=== PATIENT | female | born 1945 | race Caucasian/White ===

== ENCOUNTER 2018-11-19 12:13 | Inpatient (IN) | payer OTHER ==
[~2018-11-19] VITALS: Ht 177.8 cm; Wt 59.9 kg
--- NOTE | 2018-11-19 10:40 | NUR ---
HANGED IVF AND ABX, INFUSING WELL. PT FALL ASLEEP AT THIS MOMENT BUT AROUSABLE. PT'S FRIEND CALLED IN FROM [place], PT STATED SHE DOES NOT WANT TO ANSWER PHONE CALL, EXPLAINED TO PT'S FRIEND TO CALL BACK AROUND 2029, PT'S FRIEND VERBALIZED UNDERSTANDING. Addendum: 11/19/18 at 1857 by Maida Hough RN WRONG TIME, PLEASE IGNORE.
--- NOTE | 2018-11-19 12:13 | NUR ---
Patient BIBA ACLS accompanied by Thompson MAY, transferred to bed 10. Dr. Rojas and RN evaluating patient at bedside.
[2018-11-19] MEDS ORDERED: NACL 0.9% 1,000 ML IV ONE ×2 (12:25→19:15)
[2018-11-19] MEDS ORDERED: HALOPERIDOL IM 5 MG/ML VIAL IM ONE (12:25)
--- NOTE | 2018-11-19 12:30 | NUR ---
Physician order given to place 4 POINT HARD RESTRAINTS TO PREVENT PT OR STAFF INJURY AND TO PROVIDE MEDICALLY NECESSISARY TREATMENT. Resraints placed with quick-release ties to bed frame. Pt under observation.
--- NOTE | 2018-11-19 12:30 | NUR ---
BUD AFTER BEING FOUND ATTEMPTING TO CLIMB OUT OF BATHROOM WINDOW PER EMS. PER EMS, PT HAS A HX OF SCHIZOPHRENIA AND LIVES IN A [facility]. PT IS AGGITATED AND THRASHING AROUND IN [facility], PT ARRIVED IN 4 POINT RESTRAINTS BY EMS. PT IS NON VERBAL AT THIS TIME AND IS NOT FOLLOWING COMMANDS OR COOPERATING. TACHYCARDIC IN 130s, DR. BURCH AWARE. PT REMAINS IN 4 PT RESTRAINTS FOR PT AND STAFF SAFETY AT THIS TIME.
[2018-11-19] MEDS ORDERED: LORazepam 2 MG/ML VIAL IVP ONE (13:00)
--- NOTE | 2018-11-19 13:00 | NUR ---
14FR STRAIGHT CATH INSERTED, PT TOLERATED PROCEDURE WELL, URINE SAMPLE COLLECTED AND SENT TO LAB. URINE NOTED TO BE YELLOW AND CLEAR.
--- NOTE | 2018-11-19 13:10 | NUR ---
ALL RESTRAINTS REMOVED, PT IS CALM AND RESTING IN BED AT THIS TIME. CIRCULATION IS INTACT, PT NEEDS ARE ALL MET AT THIS TIME
--- NOTE | 2018-11-19 13:26 | NUR ---
CALLED LAB AND XRAY TO LET THEM KNOW PT IS READY
--- NOTE | 2018-11-19 13:38 | NUR ---
XRAY AT BEDSIDE.
--- NOTE | 2018-11-19 13:45 | NUR ---
PT RESTING IN BED, CALM, ALERT TO VERBAL STIMULI.
[2018-11-19 13:54] LABS: BASOPHILS % (AUTO) 0.2 % (0.0-2.0); HEMATOCRIT 38.6 % (36-48); HEMOGLOBIN 12.7 g/dL (12.0-16.0); LYMPHOCYTES # (AUTO) 0.4 K/uL (2.5-16.5); MEAN CORPUSCULAR HEMOGLOBIN 28 pg (27-31); MEAN CORPUSCULAR HGB CONC 33 g/dL (33-37); MEAN CORPUSCULAR VOLUME 84.6 fL (80-94); MONOCYTES % (AUTO) 5.8 % (1.7-9.3); NEUTROPHILS # (AUTO) 16.3 K/uL (1.8-7.7); PLATELET COUNT (AUTO) 342 K/uL (140-450); RED BLOOD CELL COUNT(AUTO) 4.57 MIL/uL (4.20-5.40); RED CELL DISTRIBUTION WIDTH 14.8 % (11.6-13.7)
[2018-11-19 14:12] LABS: BARBITURATE, URINE NEG. ng/ml (NEG <=200); BENZODIAZEPINE, URINE NEG. ng/mL (NEG <=200); CANNABINOID, URINE NEG. ng/mL (NEG <=50); COCAINE, URINE NEG. ng/mL (NEG <=300); OPIATE, URINE NEG. ng/mL (NEG <=2000); PHENCYCLIDINE SCREEN,URINE NEG. ng/mL (NEG <=25)
[2018-11-19 14:13] LABS: APPEARANCE,URINE CLEAR (CLEAR); BILIRUBIN,URINE NEGATIVE (NEGATIVE); BLOOD, URINE 2+ (NEGATIVE); COLOR,URINE AMBER (YELLOW); LEUKOCYTE ESTERASE ,URINE NEGATIVE (NEGATIVE); NITRITE, URINE NEGATIVE (NEGATIVE); PH,URINE 5.5 (5.0-9.0); UGLUCOSE NEGATIVE (NEGATIVE)
[2018-11-19 14:15] LABS: ANION GAP 20.8 (8-16); CARBON DIOXIDE 19.6 mmol/L (21-32); CHLORIDE 111 mmol/L (98-107); CREATININE 1.5 mg/dL (0.6-1.3); GLUCOSE 115 mg/dL (74-106); POTASSIUM 3.4 mmol/L (3.5-5.1); SODIUM SERUM 148 mmol/L (136-145); UREA NITROGEN, BLOOD 28 mg/dL (7-18); WHITE BLOOD COUNT (AUTO) 17.7 K/uL (4.8-10.8)
[2018-11-19 14:19] LABS: PROTHROMBIN TIME 11.4 secs (10.8-13.4)
[2018-11-19 14:20] LABS: ALBUMIN 3.1 g/dL (3.4-5.0); ASPARTATE AMINOTRANSFERASE 73 U/L (15-37); SALICYLATE < 2.8 mg/dL (2.8-20.0); TOTAL BILIRUBIN 1.2 mg/dL (0.0-1.0)
[2018-11-19 14:32] LABS: RBC,URINE 0-5 /HPF (0-5); WBC,URINE 0-5 /HPF (0-5)
[2018-11-19 15:26] LABS: ACETAMINOPHEN < 0.5 ug/ml (10-30)
--- NOTE | 2018-11-19 15:30 | NUR ---
PROVIDED PT WITH BEDPAN, PT URINATED APPROX. 100ML CLOUDY, YELLOW URINE
--- NOTE | 2018-11-19 15:45 | NUR ---
GAVE PT A BEDBATH.
--- NOTE | 2018-11-19 16:10 | NUR ---
SPOKE WITH PT SISTER DANA MITCHELL. SHE WAS THE PERSON WHO CALLED 911. SHE STATES THIS BEVAVIOR IS NOT NORMAL FOR HER SISTER. SHE IS UNAWARE OF THE PTS MEDICAL HISTORY OTHER THAN SCHIZOPHRENIA AND SHE DOES NOT KNOW IF SHE HAS BEEN COMPLIANT WITH HER MEDICATION OR PSYCHIATRIST. SHE CAN BE REACHED AT [phone].
--- NOTE | 2018-11-19 16:25 | NUR ---
PT LEFT TO CT VIA [facility]
[2018-11-19] MEDS ORDERED: ONDANSETRON 4 MG/2 ML VIAL IM/IVP PRN (17:20)
[2018-11-19] MEDS ORDERED: LORazepam 2 MG/ML VIAL IM/IVP PRN (17:20)
[2018-11-19] MEDS ORDERED: ACETAMINOPHEN 325 MG TAB PO PRN (17:20)
[2018-11-19] MEDS ORDERED: DOCUSATE SODIUM 100 MG GELCAP PO PRN (17:20)
--- NOTE | 2018-11-19 18:05 | NUR ---
Patient will be admitted to care of DR. PAGE. Admited to TELEMETRY. Will go to room 124A. Belongings list completed. Report to RAJAT PATEL.
--- NOTE | 2018-11-19 18:10 | NUR ---
admitted pt from ER BY ROMULO, PT AWAKE, ALERT. ABLE TO FOLLOW COMMANDS AT THIS TIME. PT ON RA, NO S/S OF RESPIRATORY DISTRESS NOTED. PT T: 98.4 F, BP 150/79, HR 99. O2 SATS 98%. PT HAS IV TO RIGHT HAND # 20. INTACT AND PATENT. PT SKIN NON INTACT . PER PM NURSE, PT AMBULATE AT HOME BUT PT SKIN NON-INTACT, CALL LIGHT IN REACH, INTRODUCED MYSELF. WILL CONTINUE TO MONITOR PT.
[2018-11-19] MEDS: NACL 0.9% 1,000 ML IV SCH ×2 (18:38→23:11)
--- NOTE | 2018-11-19 18:40 | NUR ---
HANGED IVF AND ABX, INFUSING WELL. PT FALL ASLEEP AT THIS MOMENT BUT AROUSABLE. PT'S FRIEND CALLED IN FROM [place], PT STATED SHE DOES NOT WANT TO ANSWER PHONE CALL, EXPLAINED TO PT'S FRIEND TO CALL BACK AROUND 2029, PT'S FRIEND VERBALIZED UNDERSTANDING.
--- NOTE | 2018-11-19 18:44 | NUR ---
patient refused ekg. patient feels she does not need that test
[2018-11-19 19:04] LABS: MAGNESIUM 2.5 mg/dL (1.8-2.4)
[2018-11-19 19:05] LABS: PHOSPHORUS 2.5 mg/dL (2.5-4.9); THYROID STIMULATING HORMONE 2.72 uIU/mL (0.34-3.74)
[2018-11-19] MEDS ORDERED: HEPARIN PER PHARMACY MC PRN (19:10)
[2018-11-19] MEDS ORDERED: hePARIN / DEXT 5% PREMIX 250 ML IV SCH (19:10)
--- NOTE | 2018-11-19 19:30 | NUR ---
ADMITTED 72 YEARS FEMALE FROM ER VIA [facility] ARRIVED IN UNIT AT 1810 PER AM NURSE. VITAL SIGNS STABLE. DR. EDMONDSON AT BEDSIDE TO SEE PATIENT. CARE BOARD UPDATED. PLAN OF CARE DISCUSSED WITH PATIENT, CALL LIGHT WITHIN REACH.
[2018-11-19 20:00] VITALS: BP 145/80
--- NOTE | 2018-11-19 20:30 | NUR ---
MOVE TO ROOM [facility]B [facility]IA [facility].
[2018-11-19] MEDS ORDERED: HAL5 PO (20:37)
[2018-11-19] MEDS: hePARIN / DEXT 5% PREMIX 250 ML IV SCH (20:45)
[2018-11-19] MEDS ORDERED: MELATONIN 3 MG TAB PO PRN (20:50)
[2018-11-19] MEDS ORDERED: MEDICATION REC. PHARMACY CONS. 1 EA MISC MC PRN (20:50)
[2018-11-19] MEDS ORDERED: QUEtiapine FUMARATE 25 MG TAB PO SCH (21:00)
--- NOTE | 2018-11-19 21:00 | NUR ---
DUE MEDS GIVEN. NO COMPLAINS. CALL LIGHT WITHIN REACH.
[2018-11-19] MEDS: OLANZapine 5 MG TAB PO SCH (21:41)
[2018-11-19] MEDS ORDERED: FOAM DRESSING TP PRN (22:30)
[2018-11-19] MEDS ORDERED: SKINTEGRITY HYDROGEL TP PRN (22:30)
[2018-11-19] MEDS ORDERED: NACL 0.9% IRR 250 ML BOTTLE IR PRN (22:30)
--- NOTE | 2018-11-20 | NUR ---
ASLEEP EASILY AROUSABLE. NO COMPLAINS. CALL LIGHT WITHIN REACH. VITAL SIGNS STABLE.
[2018-11-20 00:22] VITALS: BP 110/50
[2018-11-20] MEDS: Z-GUARD PASTE TP SCH ×2 (00:58→12:19)
--- NOTE | 2018-11-20 03:28 | NUR ---
PTT-139.5, HEPARIN GTT PER PROTOCOL ORDERED, HOLD HEPARIN GTT FOR 1HOUR THEN FOLLOW ORDERED.
[2018-11-20 04:23] VITALS: BP 102/40
--- NOTE | 2018-11-20 04:25 | NUR ---
SLEEPING WELL, EASILY AROUSABLE. NO COMPLAINS. VITAL SIGNS STABLE. CALL LIGHT WITHIN REACH.
[2018-11-20] MEDS: hePARIN / DEXT 5% PREMIX 250 ML IV SCH (04:44)
--- NOTE | 2018-11-20 04:45 | NUR ---
RESTARTED HEPARIN GTT AT 1160 UNITS/HR. PTT ORDERED AT 1045. RATE CHANGE VERIFY WITH SCALP TREATMENT OPERATOR-LINDA.
[2018-11-20 06:54] LABS: CHOL/HDL RATIO 2.6 (1-4.5); MAGNESIUM 2.1 mg/dL (1.8-2.4); PHOSPHORUS 3.4 mg/dL (2.5-4.9)
[2018-11-20 06:56] LABS: BASOPHILS % (AUTO) 0.4 % (0.0-2.0); EOSINOPHILS % (AUTO) 0.5 % (0.0-4.0); HEMATOCRIT 33.2 % (36-48); HEMOGLOBIN 11.2 g/dL (12.0-16.0); LYMPHOCYTES # (AUTO) 1.4 K/uL (2.5-16.5); LYMPHOCYTES % (AUTO) 14.3 % (20.5-51.1); MEAN CORPUSCULAR HEMOGLOBIN 29 pg (27-31); MEAN CORPUSCULAR HGB CONC 34 g/dL (33-37); MEAN CORPUSCULAR VOLUME 84.8 fL (80-94); MONOCYTES # (AUTO) 0.7 K/uL (0.8-1.0); NEUTROPHILS # (AUTO) 7.6 K/uL (1.8-7.7); NEUTROPHILS % (AUTO) 77.8 % (42.2-75.2); PLATELET COUNT (AUTO) 288 K/uL (140-450); RED BLOOD CELL COUNT(AUTO) 3.92 MIL/uL (4.20-5.40); RED CELL DISTRIBUTION WIDTH 14.8 % (11.6-13.7); SODIUM SERUM 146 mmol/L (136-145); WHITE BLOOD COUNT (AUTO) 9.8 K/uL (4.8-10.8)
[2018-11-20 06:58] LABS: ANION GAP 13.1 (8-16); CARBON DIOXIDE 23.8 mmol/L (21-32); CHLORIDE 112 mmol/L (98-107); CREATININE 0.7 mg/dL (0.6-1.3); GLUCOSE 81 mg/dL (74-106); POTASSIUM 2.9 mmol/L (3.5-5.1); UREA NITROGEN, BLOOD 17 mg/dL (7-18)
--- NOTE | 2018-11-20 07:29 | NUR ---
ENDORSED CARE AT BEDSIDE WITH HARPER RN, PATIENT IN STABLE CONDITION.
--- NOTE | 2018-11-20 07:30 | NUR ---
RECEIVED PT FROM PM NURSE. PT AWAKE, ALERT. RA. NO S/S OF RESPIRATORY DISTRESS NOTED. PT HAS IV TO BOTH LEFT HAND AND RIGHT HAND RUNNING 0.9 NS AT 150 CC/HR AND HEPARIN DRIP [id number] UNITS/HR. ABD SOFT WITHOUT PAIN. PT ABLE TO MOVE HER EXTREMITIES. POC EXPLAINED TO PT. PT VERBALIZED UNDERSTANDING, CALL SRIRAM N JOSEPH, WILL CONTINUE TO MONITOR.
[2018-11-20 08:00] VITALS: BP 127/59
[2018-11-20] MEDS ORDERED: POTASSIUM CHLORIDE 40 MEQ, LIDOCAINE MPF 1% - 5 mL VIAL 25 MG in NACL 0.9% 250 ML IV SCH (08:00)
[2018-11-20 08:10] LABS: T4 (THYROXINE) 8.4 ug/dL (4.5-12.0)
[2018-11-20] MEDS: LACTOBACILLUS RHAMNOSUS GG 1 EACH CAP PO SCH (08:15)
--- NOTE | 2018-11-20 08:21 | NUR ---
PATIENT HAS BEEN SCREENED AND CATEGORIZED HIGH NUTRITION RISK. PATIENT WILL BE SEEN WITHIN 1-2 DAYS OF ADMISSION. 11/20/18-11/21/[address]
--- NOTE | 2018-11-20 10:00 | NUR ---
*S.T. BEDSIDE SWALLOW EVAL COMPLETED* See report. Pt presents w/ moderate oropharyngeal phase dysphagia c/b self-initiation of chin down posture during all swallows as well as excessive lingual protrusion during oral bolus prep phase. No overt s/s aspiration observed, however. Recommend: 1) Mechanical soft chopped diet, thin liquids. Straws ok. 2) Chin down position with all swallows, as pt reported she has done for years and demonstrated independently 3) P.O. meds crushed Pt appears to be functioning at her reported baseline level. No further tx indicated at this time. DC to [facility]. Endorsed to RAJAT Kraft. Time:
[2018-11-20] MEDS ORDERED: hePARIN / DEXT 5% PREMIX 250 ML IV SCH (10:10)
[2018-11-20] MEDS ORDERED: HEPARIN PER PHARMACY MC PRN (10:20)
[2018-11-20] MEDS ORDERED: POTASSIUM CHLORIDE 10 MEQ TABER PO SCH ×2 (10:30→17:30)
--- NOTE | 2018-11-20 11:54 | NUR ---
Etl Informatica Developer Note: I met with patient at bedside. Per patient, she prefers not to speak with me. She stated she does not need director of social work's assistance.
[2018-11-20 12:00] VITALS: BP 118/62
[2018-11-20] MEDS: PIPERACILLIN/TAZOBACTAM 3.375 GM in DEXTROSE 5% 50 ML IV SCH ×3 (12:12→23:52)
--- NOTE | 2018-11-20 12:31 | NUR ---
received critical report from lab, pt PPT 74.7, decreased heparin drip from 1160 units/ hr to 1010 units/hr per protocol.
--- NOTE | 2018-11-20 13:15 | NUR ---
offer pt bedpan, pt voids 500 cc. cleaned pt.
--- NOTE | 2018-11-20 13:30 | NUR ---
PT UNABLE TO DO IS AT THIS TIME
--- NOTE | 2018-11-20 14:23 | NUR ---
11/20/18 RD INITIAL ASSESSMENT COMPLETED PLEASE REFER TO NUTRITION ASSESSMENT UNDER CARE ACTIVITY FOR ESTIMATED NUTRITIONAL NEEDS. 1. CONTINUE FULL LIQUID DIET TOLERATED 2. ADVANCE TO MECHANICAL SOFT DIET WHEN MEDICALLY APPROPRIATE 3. RECOMMEND VITAMIN C 200 MG/DAY 4. RECOMMEND ENSURE BID 5. RD TO FOLLOW-UP 3-5 DAYS, MODERATE RISK [address]
[2018-11-20 16:00] VITALS: BP 119/59
--- NOTE | 2018-11-20 19:17 | NUR ---
ENDORSED PT TO PM NURSE.
--- NOTE | 2018-11-20 19:18 | NUR ---
RECEIVED BEDSIDE REPORT FROM DAY SHIFT NURSEJORGE. NO S/S OF RESPIRATORY DISTRESS NOTED ON ROOM AIR. PT HAS IV TO RIGHT HAND, 20G, HEPARIN DRIP [id number] UNITS/HR. AND LEFT HAND, 22G, SL. PT EATING DINNER. PT ABLE TO MOVE HER EXTREMITIES. POC EXPLAINED TO PT. PT VERBALIZED UNDERSTANDING, BED IN LOW POSITION, CALL LIGHT WITHIN REACH, WILL CONTINUE TO MONITOR.
[2018-11-20 20:00] VITALS: BP 124/65
--- NOTE | 2018-11-20 20:20 | NUR ---
RECEIVED CRITICAL REPORT FROM LAB, PT PPT 66.8, NO RATE CHANGE, PER PROTOCOL.
--- NOTE | 2018-11-20 20:25 | NUR ---
PT HAD VOMITING. PT STATES "I ATE DINNER TOO FAST AND TOO MUCH. I ATE ALL DINNER AND SANDWICH." EMPTY TRAY AT NEXT TO HER. PT ALSO HAD LARGE BM. CLEAN AND CHANGE PT. PT TOLERATED WELL.
[2018-11-20] MEDS: ASCORBIC ACID 500 MG TAB PO SCH (21:04)
[2018-11-20] MEDS: OLANZapine 5 MG TAB PO SCH (21:05)
--- NOTE | 2018-11-20 21:05 | NUR ---
GIVEN OLANZAPINE AND VITAMIN C MD ORDERED. PT TOLERATED WELL. WILL CONTINUE TO MONITOR.
--- NOTE | 2018-11-20 22:50 | NUR ---
PT SLEEPING IN BED. BREATHING EVEN AND UNLABORED. NO ACUTE DISTRESS NOTED. WILL CONTINUE TO MONITOR.
--- NOTE | 2018-11-20 23:52 | NUR ---
VS CHECKED, WITHIN PT'S BASELINE, GIVEN ZOSYN MD ORDERED. PT TOLERATED WELL. WILL CONTINUE TO MONITOR.
[2018-11-21] VITALS: BP 110/50
[2018-11-21] MEDS: Z-GUARD PASTE TP SCH ×2 (01:02→13:00)
--- NOTE | 2018-11-21 01:02 | NUR ---
APPLY Z-GUARD ON BUTTOCK MD ORDERED. CHANGED DRESSING. PT TOLERATED WELL. BED IN LOW POSITION, CALL LIGHT WITHIN REACH.
--- NOTE | 2018-11-21 01:35 | NUR ---
RECEIVED CALL FROM DR. EDMONDSON TO D/C HEPARIN DRIP. STOP HEPARIN DRIP AND TAKE LINE AND BACK OUT. PT TOLERATED WELL. ORDER 5000U OF HEPARIN AT 0900.
--- NOTE | 2018-11-21 03:35 | NUR ---
PT HAD BM. CHANGED PT. NO ACUTE DISTRESS NOTED.
[2018-11-21 04:00] VITALS: BP 111/66
--- NOTE | 2018-11-21 04:00 | NUR ---
PT SLEEPING IN BED COMFORTABLY. VS CHECKED, WITHIN NORMAL RANGE. WILL CONTINUE TO MONITOR.
[2018-11-21] MEDS: PIPERACILLIN/TAZOBACTAM 3.375 GM in DEXTROSE 5% 50 ML IV SCH ×3 (05:07→18:42)
--- NOTE | 2018-11-21 05:07 | NUR ---
GIVEN ZOSYN MD ORDERED. PT TOLERATED WELL. WILL CONTINUE TO MONITOR.
[2018-11-21 06:28] LABS: MAGNESIUM 1.7 mg/dL (1.8-2.4); PHOSPHORUS 2.1 mg/dL (2.5-4.9)
--- NOTE | 2018-11-21 07:05 | NUR ---
GOT BEDSIDE REPORT FROM LEAD PROCESS ENGINEER NURSE. PATIENT ON TELE MONITOR WITH STANDARD PRECAUTIONS IN PLACE. PATIENT AAOX3, ON ROOM AIR, NO DISTRESS NOTED. PATIENT WITH BRUISING AND DRY SCABS ON LUE. PATIENT AMBULATES WITH ASSIST AND CONTINENT. IVS ON L HAND 22G SALINE LOCK AND R HAND 20 G SALINE LOCK, BOTH IVS PATENT AND INTACT. BED IN LOW POSITION, CALL LIGHT WITHIN REACH, SIDE RAILS X2 UP
--- NOTE | 2018-11-21 07:43 | NUR ---
PT REFUSED TO DO IS. SHE SAID SHE WOULD LIKE ANOTHER CHANCE LATER. I LET HER KNOW I WOULD COME BACK LATER. RN AWARE AND WILL NOTIFY ME IF PT IS READY TO PERFORM IS.
[2018-11-21 07:53] LABS: BASOPHILS % (AUTO) 0.6 % (0.0-2.0); EOSINOPHILS # (AUTO) 0.1 K/uL (0-0.4); EOSINOPHILS % (AUTO) 1.7 % (0.0-4.0); HEMATOCRIT 36.1 % (36-48); HEMOGLOBIN 12.1 g/dL (12.0-16.0); LYMPHOCYTES # (AUTO) 2.3 K/uL (2.5-16.5); LYMPHOCYTES % (AUTO) 30.4 % (20.5-51.1); MEAN CORPUSCULAR HEMOGLOBIN 28 pg (27-31); MEAN CORPUSCULAR HGB CONC 34 g/dL (33-37); MEAN CORPUSCULAR VOLUME 84.5 fL (80-94); MONOCYTES # (AUTO) 0.5 K/uL (0.8-1.0); MONOCYTES % (AUTO) 6.5 % (1.7-9.3); NEUTROPHILS # (AUTO) 4.6 K/uL (1.8-7.7); NEUTROPHILS % (AUTO) 60.8 % (42.2-75.2); PLATELET COUNT (AUTO) 318 K/uL (140-450); RED BLOOD CELL COUNT(AUTO) 4.28 MIL/uL (4.20-5.40); RED CELL DISTRIBUTION WIDTH 15.2 % (11.6-13.7); WHITE BLOOD COUNT (AUTO) 7.5 K/uL (4.8-10.8)
[2018-11-21 07:54] LABS: ANION GAP 13.2 (8-16); CARBON DIOXIDE 26.2 mmol/L (21-32); CHLORIDE 107 mmol/L (98-107); CREATININE 0.7 mg/dL (0.6-1.3); GLUCOSE 94 mg/dL (74-106); POTASSIUM 3.4 mmol/L (3.5-5.1); SODIUM SERUM 143 mmol/L (136-145); UREA NITROGEN, BLOOD 9 mg/dL (7-18)
[2018-11-21 08:00] VITALS: BP 122/74
[2018-11-21] MEDS: LACTOBACILLUS RHAMNOSUS GG 1 EACH CAP PO SCH (08:57)
[2018-11-21] MEDS: ASCORBIC ACID 500 MG TAB PO SCH (08:57)
--- NOTE | 2018-11-21 09:01 | NUR ---
ADMINISTERED SCHEDULED MEDS. PATIENT TOLERATED WELL
[2018-11-21] MEDS ORDERED: SODIUM PHOS / POTASSIUM PHOS 1 PKT PDR PO SCH (09:30)
[2018-11-21] MEDS ORDERED: MAGNESIUM OXIDE 400 MG TAB PO SCH (09:30)
[2018-11-21] MEDS: NACL 0.9% 1,000 ML IV SCH (09:37)
--- NOTE | 2018-11-21 10:28 | NUR ---
WOUND CARE EVALUATION NOTE: REASON FOR EVALUATION: GLUTEAL WOUND SKIN ASSESSMENT DONE WITH THIS 72 Y/O FEMALE PT ADMITTED FROM HOME TO [facility] WITH INITIAL DX OF AGITATION X 1 DAY AND S/P FALL. PAST MEDICAL HX INCLUDES PARANOID SCHIZOPHRENIA. ALL ABOVE INFORMATION OBTAINED FROM ADMISSION H&P. AND PT. PT. ADMITTED WITH PRESSURE ULCERS TO RIGHT AND LEFT GLUTEALS. PT IS AWAKE,AWARE OF OPEN WOUNDS ON BUTTOCKS, ABLE TO CARRY CONVERSATION BUT IN SHORT ATTENTION. SKIN IS WARM AND DRY, MULTIPLE DRY SCABS AND ECCHYMOSIS TO UPPER ARMS BLE NO HAIR GROWTH, NO EDEMA TO BILATERAL LOWER LEGS. BILATERAL DORSAL PEDAL PULSES PRESENT AND NORMAL. PLAN OF CARE DISCUSSED WITH PT. PRIMARY RN AND DR. MCCORMCAK. PT. VERBALIZES UNDERSTANDING. INTEGUMENTARY: -RIGHT AND LEFT KNEES DRY ABRASIONS -LEFT BUTTOCK PRESSURE ULCER STAGE 2 WITH 2X2X0.1CM WOUND BED 100% PINK ,CLEAN MOIST NO ODOR,WOUND EDGE FLAT, NICKY WOUND SKIN INTACT WITH SURROUNDING REDNESS/LIGHT PURPLE COLOR EXTENDED TO RIGHT BUTTOCK PRESSURE ULCER. - RIGHT BUTTOCK PRESSURE ULCER STAGE 1, SKIN INTACT - SACRALCOCCYX SKIN CLEAN AND INTACT NO PRESSURE ULCER -BILATERAL HEELS BLANCHABLE REDNESS RECOMMENDATIONS: -CLEANSE LEFT BUTTOCK WITH SOAP AND WATER, PAT DRY, APPLY Z GUARD AND COVER WITH OPTIFOAM QD AND PRN WITH SOILING. -APPLY OPTIFOAM TO RIGHT BUTTOCK QD AND PRN SOILING -OFFLOAD BILATERAL HEELS BY PLACING PILLOWS UNDER CALVES UNLESS OTHERWISE CONTRAINDICATED -PRESSURE REDISTRIBUTIONS SURFACE THERAPY -TURN AND REPOSITION Q2H, OFFLOAD BUTTOCKS -CONTINUE TO FOLLOW RD RECOMMENDATIONS ALL ABOVE RECOMMENDATIONS DISCUSSED WITH PRIMARY RN PLEASE CONTACT WOUND CARE NURSE FOR ANY QUESTION AND CHANGE OF WOUND CONDITION.
[2018-11-21] MEDS ORDERED: POTASSIUM CHLORIDE 40 MEQ, LIDOCAINE MPF 1% - 5 mL VIAL 25 MG in NACL 0.9% 250 ML IV SCH (10:30)
--- NOTE | 2018-11-21 10:36 | NUR ---
RECEIVED A CALL FROM [facility] LATHAM SPOKE WITH ZHEN ,FAXED ALL THE PAPER WORK TO FAX# [phone]
--- NOTE | 2018-11-21 11:47 | NUR ---
Procedure in progress at this time. Will follow-up with IS later.
[2018-11-21 12:00] VITALS: BP 149/95
--- NOTE | 2018-11-21 12:00 | NUR ---
PATIENT IN RESTROOM. WOULD CHECK UP ON PATIENT AND ASK HER TO OPEN THE DOOR, BUT PATIENT WOULD NOT OPEN THE DOOR. PATIENT WOULD SAY "JUST A MINUTE" BUT NOT OPEN THE DOOR. ATTEMPTED TO OPEN THE DOOR, BUT PATIENT HOLDING DOOR CLOSED.
--- NOTE | 2018-11-21 12:05 | NUR ---
PATIENT ASSISTED BACK TO BED FROM BATHROOM, PATIENT FOLLOWS COMMANDS AND COMMUNICATES APPROPRIATELY. PATIENT AAOX3, ON ROOM AIR, NO DISTRESS NOTED
--- NOTE | 2018-11-21 15:13 | NUR ---
Went to pt room to find pt standing, bed alarms going off, requested pt to sit down in bed. she continues to refuse. Nursing staff came to bedside to assist with non-compliant pt. Pt refuses to get back into bed. Pt sat down to put socks on and tried to get pt to perform IS, breathing exercise. Pt states she is breathing fine and does not need to do breathing exercises. Pt stood up again. Pt will not comply. Security called. Hands off to nursing and security.
--- NOTE | 2018-11-21 15:35 | NUR ---
PATIENT AGITATED, SCREAMING, KICKING AND THROWING ARMS AT SECURITY. PATIENT ATTEMPTING TO GET OUT OF BED TO USE RESTROOM. WILL ADMINISTER STAT MEDS ORDERED AND APPLY BILATERAL SOFT WRIST RESTRAINTS ORDERED
[2018-11-21] MEDS ORDERED: diphenhydrAMINE 50 MG/ML VIAL ONE (15:48)
[2018-11-21 16:00] VITALS: BP 108/63
[2018-11-21] MEDS ORDERED: LORazepam 2 MG/ML VIAL IVP SCH (16:00)
[2018-11-21] MEDS ORDERED: diphenhydrAMINE 50 MG/ML VIAL IM SCH (16:30)
[2018-11-21] MEDS ORDERED: LORazepam 2 MG/ML VIAL IM SCH (16:30)
--- NOTE | 2018-11-21 16:30 | NUR ---
ADMINISTERED IM BENADRYL AND IM ATIVAN ORDERED
--- NOTE | 2018-11-21 19:00 | NUR ---
PATIENT PULLED OUT NEW IV ON R HAND 22G SHE WAS ATTEMPTING TO CLIMB OUT OF BED. INSTRUCTED PATIENT TO STAY IN BED FOR HER SAFETY. LEFT WRIST RESTRAINT RE APPLIED SINCE IT WAS NO LONGER IN PLACE
--- NOTE | 2018-11-21 19:17 | NUR ---
GAVE BEDSIDE REPORT TO CONSTRUCTION SAFETY CONSULTANT NURSE. PATIENT ENDORSED IN STABLE CONDITION
--- NOTE | 2018-11-21 19:22 | NUR ---
MADE DR. EDMONDSON AWARE THAT PATIENT REMOVED NEWLY INSERTED IV, NO NEW ORDERS AT THIS TIME
--- NOTE | 2018-11-21 19:23 | NUR ---
GOT BEDSIDE REPORT FROM DAY RN. PATIENT ON TELE MONITOR WITH STANDARD PRECAUTIONS IN PLACE. PATIENT AAOX2 PERSON AND PLACE, ON ROOM AIR, RESPIRATIONS ARE EQUAL AND UNLABORED.PATIENT WITH BRUISING AND DRY SCABS ON LUE. SACRAL ULCER DRESSING C/D/I. PATIENT AMBULATES WITH ASSIST AND CONTINENT PER RN. NO IV ACCESS AT THIS TIME DR RAY. PT KEEPS REMOVING IVS ON SOFT WRIST RESTRAINTS. WILL TRY TO OBTAIN IV AT A LATER TIME. CIRCULATION GOOD. BED IN LOW POSITION, CALL LIGHT WITHIN REACH, SIDE RAILS X2 UP. WILL ROUND FREQUENTLY.
[2018-11-21 20:00] VITALS: BP 110/65
[2018-11-21] MEDS: SODIUM PHOS / POTASSIUM PHOS 1 PKT PDR PO SCH (20:33)
[2018-11-21] MEDS: OLANZapine 5 MG TAB PO SCH (20:33)
--- NOTE | 2018-11-21 20:33 | NUR ---
CHINO MEDICATIONS GIVEN WITH APPLESAUCE. PT TOLERATED WELL . SAFETY MEASURES ARE IN PLACE. PT REMAINS ON SOFT WRIST RESTRAINTS. ALL NEEDS MET AT THIS TIME. WILL CONTINUE TO ROUND.
[2018-11-21] MEDS ORDERED: OLANZapine 5 MG TAB PO SCH (21:00)
--- NOTE | 2018-11-21 22:29 | NUR ---
PATIENT RESTING COMFORTABLY IN BED. SAFETY MEASURES ARE IN PLACE.
[2018-11-22] VITALS: BP 124/63
--- NOTE | 2018-11-22 | NUR ---
VITAL SIGNS ARE WITHIN NORMAL LIMITS. PT REMAINS AAOX2 VERY COMBATIVE KICKING NURSE. RELEASE RESTRAINTS FOR LESS 1 MIN PT ATTEMPTED TO PUNCH NURSE. PT YELLING, "REMEMBER ME" REPEATEDLY WELL "JORJE" WHEN ASKED WHO IS JORJE OR WHO IS SHE TALKING TO PT DOES NOT ANSWER. WAS UNABLE TO START IV D/T PT BEHAVIOR DR CALLEJAS AWARE. WILL COME TO SEE PT.
--- NOTE | 2018-11-22 00:10 | NUR ---
DR EDMONDSNO IN TALKING TO PT REGARDING STARTING IV PT REFUSING. DRS ORDER TO GIVE IM ATIVAN AND BEGIN IV ONCE PT CALMS DOWN. WILL CONTINUE TO MONITOR.
--- NOTE | 2018-11-22 01:20 | NUR ---
PATIENT STILL VERY COMBATIVE AND REFUSING IV. DR EDMONDSON MADE AWARE. WILL TRANSFER TO ICU FOR 4 POINT RESTRAINTS. WILL F/U NEW ORDERS.
[2018-11-22] MEDS: Z-GUARD PASTE TP SCH ×2 (01:29→12:03)
[2018-11-22] MEDS ORDERED: LORazepam 2 MG/ML VIAL IM/IVP PRN (01:35)
--- NOTE | 2018-11-22 01:40 | NUR ---
ADMINISTERED ATIVAN 1MG AND BENADRYL 25MG IM PT TOLERATED WELL. CHEMICAL PROCESS ANALYST AWARE DR EDMONDSON WANTS TO TRANSFER PATIENT TO ICU FOR 4 POINT RESTRAINTS.
[2018-11-22] MEDS: diphenhydrAMINE 50 MG/ML VIAL IM/IVP PRN (01:41)
[2018-11-22] MEDS: PIPERACILLIN/TAZOBACTAM 3.375 GM in DEXTROSE 5% 50 ML IV SCH ×4 (02:53→17:17)
--- NOTE | 2018-11-22 02:56 | NUR ---
NEW IV ON R HAND 24G ZOSYN NOW INFUSING PER ORDERS. WILL CONTINUE TO MONITOR.
[2018-11-22 04:00] VITALS: BP 128/73
--- NOTE | 2018-11-22 04:15 | NUR ---
VITAL SIGNS ARE WITHIN NORMAL LIMITS. SOFT WRIST AND MITTENS REMAIN ON. ALL NEEDS MET AT THIS TIME. WILL CONTINUE TO MONITOR.
[2018-11-22 06:05] LABS: ANION GAP 11.8 (8-16); CARBON DIOXIDE 29.7 mmol/L (21-32); CHLORIDE 104 mmol/L (98-107); CREATININE 0.8 mg/dL (0.6-1.3); GLUCOSE 87 mg/dL (74-106); POTASSIUM 3.5 mmol/L (3.5-5.1); SODIUM SERUM 142 mmol/L (136-145); UREA NITROGEN, BLOOD 8 mg/dL (7-18)
[2018-11-22 06:10] LABS: MAGNESIUM 1.9 mg/dL (1.8-2.4); PHOSPHORUS 3.2 mg/dL (2.5-4.9)
--- NOTE | 2018-11-22 06:40 | NUR ---
ORIENTED PT TO ROOM AND STAFF. ZOSYN NOW INFUSING PER ORDERS. WILL CONTINUE TO MONITOR.
[2018-11-22 06:56] LABS: BASOPHILS % (AUTO) 0.5 % (0.0-2.0); EOSINOPHILS # (AUTO) 0.1 K/uL (0-0.4); EOSINOPHILS % (AUTO) 1.5 % (0.0-4.0); HEMOGLOBIN 13.2 g/dL (12.0-16.0); LYMPHOCYTES % (AUTO) 22.3 % (20.5-51.1); MEAN CORPUSCULAR HEMOGLOBIN 28 pg (27-31); MEAN CORPUSCULAR HGB CONC 33 g/dL (33-37); MEAN CORPUSCULAR VOLUME 85.3 fL (80-94); MONOCYTES # (AUTO) 0.6 K/uL (0.8-1.0); MONOCYTES % (AUTO) 7.2 % (1.7-9.3); NEUTROPHILS # (AUTO) 6.1 K/uL (1.8-7.7); NEUTROPHILS % (AUTO) 68.5 % (42.2-75.2); PLATELET COUNT (AUTO) 351 K/uL (140-450); RED BLOOD CELL COUNT(AUTO) 4.69 MIL/uL (4.20-5.40); WHITE BLOOD COUNT (AUTO) 8.9 K/uL (4.8-10.8)
--- NOTE | 2018-11-22 07:23 | NUR ---
ENDORSED PT TO DAY RN. PT IN STABLE CONDITION.
--- NOTE | 2018-11-22 07:24 | NUR ---
Received bedside report from pm nurse Barbra. Pt resting in bed, awake, verbally responsive, aaox2, respirations even & nonlabored in room air. Right hand IV intact with ongoing NS @ 20ml/hr. Bilat wrist restraints in place, no signs of injury noted. Call light within reach.
[2018-11-22 08:00] VITALS: BP 108/59
--- NOTE | 2018-11-22 08:00 | NUR ---
Pt resting in bed. RT at bedside coaching pt on use of IS. Pt able to follow one-step commands.
[2018-11-22] MEDS: OLANZapine 5 MG TAB PO SCH ×2 (09:05→21:04)
[2018-11-22] MEDS: ASCORBIC ACID 500 MG TAB PO SCH (09:05)
[2018-11-22] MEDS: LACTOBACILLUS RHAMNOSUS GG 1 EACH CAP PO SCH (09:05)
[2018-11-22] MEDS: SODIUM PHOS / POTASSIUM PHOS 1 PKT PDR PO SCH (09:06)
[2018-11-22] MEDS: NACL 0.9% 1,000 ML IV SCH (09:13)
--- NOTE | 2018-11-22 10:05 | NUR ---
Dr. Lind with order to dc bilat wrist restraints. Restraints removed. Pt aaox2, calm & cooperative. Informed pt not to pull out IV. Pt verbalized understanding & states "no I'll be good." Right hand IV intact with ongoing NS @ 20ml/hr. Call light within reach. Bed alarm on.
[2018-11-22 12:00] VITALS: BP 98/45
--- NOTE | 2018-11-22 12:30 | NUR ---
Pt sitting up in bed, eating lunch. Pt calm & quiet, no signs of distress, no c/o discomfort. Right hand IV intact with ongoing NS @ 20ml/hr. Bed alarm on. Call light within reach.
[2018-11-22] MEDS ORDERED: POTASSIUM CHLORIDE 10 MEQ TABER PO SCH (13:30)
--- NOTE | 2018-11-22 13:45 | NUR ---
Pt vomited moderate amount of previously ingested food. Pt denies any nausea or abd pain. Pt states "I think I ate too fast." Pt also with mod amount soft brown stool. Bed bath given via 2-person max assist. Linens changed. Pt in no distress. HOB elevated to 45�. Call light within reach. Bed alarm on. Right hand IV intact with ongoing NS @ 20ml/hr.
[2018-11-22 16:00] VITALS: BP 103/50
--- NOTE | 2018-11-22 18:01 | NUR ---
Pt sitting up in bed, eating dinner. Supervision provided with frequent vocal cues to slow down & chew food adequately. Pt able to follow simple commands. Will cont to monitor.
--- NOTE | 2018-11-22 19:20 | NUR ---
Bedside report given to pm nurse Glenny. Pt in no distress.
--- NOTE | 2018-11-22 19:31 | NUR ---
RECEIVED PATIENT ON ROOM AIR, PULSE OX SAT 96%. INCENTIVE SPIROMETRY PERFORMED BY PATIENT WITH FAIR EFFORT. NO RESPIRATORY DISTRESS NOTED AT THIS TIME. WILL CONTINUE TO MONITOR .
[2018-11-22 20:00] VITALS: BP 98/55
--- NOTE | 2018-11-22 20:00 | NUR ---
SEEN PT AWAKE, ALERT AND ORIENTED RESTING IN BED. PT DENIES ANY PAIN OR DISCOMFORT. INITIAL ASSESSMENT DONE. VITAL SIGNS CHECKED. CALL LIGHT WIN REACH. BED ALARM TURNED ON.
--- NOTE | 2018-11-22 21:00 | NUR ---
SEEN PT AWAKE, ALERT AND ORIENTED CRUMPED IN BED. PT PULLED UP IN BED. PERICARE RENDERED. HOB ELEVATED. MEDICATIONS GIVEN ORDERED W/ TEACHINGS. PT VERBALIZED UNDERSTANDING. PT TOLERATED MEDICATIONS WELL. IVF INFUSING WELL. PT ASKING FOR WARM BLANKET. WILL PROVIDE ONE. PT'S HOB LOWERED AND PT SAID "LENCHO, SEE YOU TOMORROW." PT CORRECTED AND SAID SEE YOU LATER. PT SMILED AND COVERED HERSELF UP. SAFETY REINFORCED. BED ALARM TURNED ON. WILL CONTINUE TO MONITOR.
[2018-11-23] VITALS: BP 95/46
[2018-11-23] MEDS: PIPERACILLIN/TAZOBACTAM 3.375 GM in DEXTROSE 5% 50 ML IV SCH ×3 (00:30→12:03)
--- NOTE | 2018-11-23 00:30 | NUR ---
SEEN PT SLEEPING SOUNDLY. VITAL SIGNS CHECKED. PT DENIES ANY DISCOMFORT. IV ZOSYN GIVEN W/ TEACHINGS. PT SAID "OK". PT'S DRY RIGHT NOW. PT ASSISTED IN REPOSITIONING. CALL LIGHT W/IN REACH. WILL CONTINUE TO MONITOR.
[2018-11-23] MEDS: Z-GUARD PASTE TP SCH ×2 (00:33→13:40)
--- NOTE | 2018-11-23 02:05 | NUR ---
SEEN PT SLEEPING COMFORTABLY ON HER LEFT SIDE. NO DISCOMFORT NOTED. IVF INFUSING WELL. BED ALARM ON.
[2018-11-23 04:00] VITALS: BP 92/33
--- NOTE | 2018-11-23 04:25 | NUR ---
BED ALARMED. PT GOT OUT OF BED AND WANTS TO GO BATHROOM. MATCHER OFFBEARER CAME WELL. PT ASSISTED TO THE BATHROOM. MATCHER OFFBEARER ASSISTED PT BACK TO BED. Z-GUARD APPLIED AND NEW OPTIFORM APPLIED. PT LYING ON THE RIGHT SIDE. PT DENIES ANY OTHER NEEDS. BED ALARM TURNED ON. CALL LIGHT W/IN REACH.
--- NOTE | 2018-11-23 07:15 | NUR ---
Received bedside report from pm nurse Murrieta. Pt asleep in bed, respirations even & nonlabored in room air. Right hand IV intact with ongoing NS @ 20ml/hr. Call light within reach. Bed alarm on.
[2018-11-23 08:00] VITALS: BP 122/53
[2018-11-23] MEDS ORDERED: POTASSIUM CHLORIDE 10 MEQ TABER PO SCH (08:30)
--- NOTE | 2018-11-23 08:30 | NUR ---
Upon entering the room, pt was found sitting at bedside, nude, and attempting to go to the pharmacy, Pt 24 G IV was attatched to IV tubing and on the floor. Catheter intact. Minimal bleeding to R hand controlled with gauze and pressure. New 22 G IV started in R AC after pt was calmed down, dressed, and put back to bed. Pt agreed to wait for pharmacy trip. Ordered ativan will be administered. Pt Alarm bed on.
[2018-11-23] MEDS: LORazepam 2 MG/ML VIAL IM/IVP PRN ×2 (08:51→12:47)
[2018-11-23] MEDS ORDERED: OLAN5TAB30 PO (08:55)
[2018-11-23] MEDS ORDERED: LACT10CA PO (08:55)
[2018-11-23] MEDS ORDERED: PIPE1SOL IV (08:55)
[2018-11-23] MEDS ORDERED: ZGUARD TP (08:55)
[2018-11-23] MEDS ORDERED: VITC500 PO (08:55)
[2018-11-23] MEDS: NACL 0.9% 1,000 ML IV SCH (09:00)
[2018-11-23] MEDS: OLANZapine 5 MG TAB PO SCH (10:48)
[2018-11-23] MEDS: ASCORBIC ACID 500 MG TAB PO SCH (10:48)
[2018-11-23] MEDS: LACTOBACILLUS RHAMNOSUS GG 1 EACH CAP PO SCH (10:48)
--- NOTE | 2018-11-23 11:16 | NUR ---
Received a call from Bailee (sister) asking what SNF pt will be transferred to. Informed her that pt will be going to [facility] will call her back once we have bed availability & transportation. Bailee asked for SNF address, informed her that I will put her on hold while I look for address. Resumed call but no response heard on the other line. Called Bailee on number given [phone], but line would ring x2 then disconnect. Will wait for Bailee to call back.
[2018-11-23 12:00] VITALS: BP 99/59
[2018-11-23] MEDS: diphenhydrAMINE 50 MG/ML VIAL IM/IVP PRN (12:06)
[2018-11-23] MEDS ORDERED: diphenhydrAMINE 50 MG/ML VIAL IM ONE (12:20)
[2018-11-23] MEDS ORDERED: LORazepam 2 MG/ML VIAL IM SCH (12:22)
--- NOTE | 2018-11-23 12:47 | NUR ---
Pt getting out of bed, stating she wants to go to the pharmacy & get oral moisturizer. Pt reoriented to room & hospital environment, informed her that we will provide her with oral moisturizer. Pt amb back to bed with mod assist d/t unsteady gait. Lorazepam administered. Bed alarm on. Call light within reach.
[2018-11-23] MEDS ORDERED: ASPI81EC97 PO (13:24)
[2018-11-23] MEDS ORDERED: ATOR20TA PO (13:24)
--- NOTE | 2018-11-23 14:54 | NUR ---
CALLED [facility] SPOKE WITH ZHEN REQUESTING A BED PER ZHEN HAS A CONCERN REGARDING A STAY, PROVIDED INSURANCE CM PER REQUEST , ZHEN WILL CALL BACK ONCE SHE DISCUSSED WITH MCKINLEY
--- NOTE | 2018-11-23 15:30 | NUR ---
Bed alarm heard, pt found ambulating while holding onto furniture from bed to restroom. Pt assisted to toilet, voided mod amount, then assisted back to bed. Right AC IV intact, site locked with saline. Bed alarm on. Call light within reach.
--- NOTE | 2018-11-23 16:00 | NUR ---
Received call from Adelina medical case worker stating that pt's insurance is not covering SNF, & discharge plans will change to home health. Per Adelina, she left voicemail to sister Bailee. Called Bailee @ [phone] & left brief voicemail.
--- NOTE | 2018-11-23 16:34 | NUR ---
Received call back from Bailee (sister) & notified of discharge plan to home with home health, verbalized understanding. Per Bailee, pt lives with a room mate & will have them pick her up. If roommate is unavailable, sister will call a taxi cab for pt after dinner. Informed Bailee that pt will need a change of clothes, states she will have room mate bring it. Adelina (casework specialist) notified & states pt is ok to ride taxi.
--- NOTE | 2018-11-23 16:42 | NUR ---
I RECEIVED A CALL FROM SONG CHATMAN FROM [facility] [phone] PT IS NOT QUALIFIED FOR SNF INSTEAD PT CAN GO HOME WITH HOME HEALTH FAXED ALL THE REQUEST FOR HOME HEALTH. PER SONG SHE WILL CONTACT THE CONTRACTED HOME HEALTH AND PHARMACY AND WILL ARRANGE THE HOME HEALTH. THE HH CARE WILL START TOMORROW. PER SONG WE CAN DISCHARGE THE PATIENT HOME AD THE CONTRACTED HOME HEALTH WILL CONTACT THE PATIENT.
--- NOTE | 2018-11-23 18:12 | NUR ---
PT FOUND STANDING IN BED WITH BELONGINGS IN HAND. PT STATED SHE WAS LEAVING. 24 G IV WAS IN PT'S HAND AND BLEEDING OBSERVED FROM L AC. PT SITTING IN CHAIR
--- NOTE | 2018-11-23 18:50 | NUR ---
Pt's friend Roma Wilson arrived in front lobby with pt's clothes & requests to have pt changed & wheeled to front lobby. Pt's clothes picked up from front lobby, dressed pt in room 121B, & taken pt out to front via wheelchair. Discharge instructions provided to pt & friend, both verbalized understanding & agree with discharge plans. Discharge papers signed by friend per pt request. Pt name bands removed. Pt stable, able to pivot transfer from wheelchair to car with mod assist. All belongings with pt upon departure.
--- NOTE | 2018-11-24 08:26 | NUR ---
CONTACTED SONG CHATMAN OF [facility] AT [phone] RE: HOME HEALTH FOLLOW UP, NO ANSWER. LEFT MESSAGE. WILL FOLLOW UP.
== END 2018-11-23 18:50 | disposition home health service (06) | DRG 871 ==
LOC: MED 12:13 → EDBD 12:13 → MTU 17:18
PROVIDERS: ADMIT General Practice; ATTEND General Practice
DX: A41.9 Sepsis, unspecified organism (principal); R65.21 Severe sepsis with septic shock; I21.A1 Myocardial infarction type 2; N17.0 Acute kidney failure with tubular necrosis; J69.0 Pneumonitis due to inhalation of food and vomit; E43 Unspecified severe protein-calorie malnutrition; E87.0 Hyperosmolality and hypernatremia; Z68.1 Body mass index [BMI] 19.9 or less, adult; F20.9 Schizophrenia, unspecified; E86.0 Dehydration; F29 Unspecified psychosis not due to a substance or known physiological condition; E87.6 Hypokalemia; E87.8 Other disorders of electrolyte and fluid balance, not elsewhere classified; E83.39 Other disorders of phosphorus metabolism; E83.42 Hypomagnesemia; I35.1 Nonrheumatic aortic (valve) insufficiency; F41.9 Anxiety disorder, unspecified; Z91.14 Patient's other noncompliance with medication regimen
CPT/HCPCS: 36415; 70450; 71045; 72170; 76705; 76770; 80048; 80053; 80305; 81001; 82140; 82150; 83036; 83605; 83690; 83735; 83880; 84100; 84132; 84134; 84436; 84443; 84484; 85025; 85610; 85730; 87040; 87081; 87086; 92610; 93005; 96361; 96372; 96374; 97110; 97116; 97161-GP; 97530; 99285; C1758; G0480; G0482; J0696; J1200; J1630; J1644; J2001; J2060; J2543; J3480; J7030; J7060; Q0092

== ENCOUNTER 2018-11-26 07:43 | Emergency (ER) | payer OTHER ==
[~2018-11-26] VITALS: Ht 167.6 cm; Wt 59.0 kg
[~2018-11-26 07:43] MED LIST: ASPI81EC97 PO; ATOR20TA PO; LACT10CA PO; OLAN5TAB30 PO; PIPE1SOL IV; VITC500 PO; ZGUARD TP
--- NOTE | 2018-11-26 07:43 | NUR ---
Patient BIBA ACLS, transferred to bed 1. RN evaluating patient at bedside.
[2018-11-26 07:58] VITALS: BP 100/50
--- NOTE | 2018-11-26 08:23 | NUR ---
Dr. Sands evaluating patient at bedside.
[2018-11-26] MEDS ORDERED: OLANZapine 5 MG ODT PO ONE (08:25)
--- NOTE | 2018-11-26 08:30 | NUR ---
RECEIVED REPORT RAJAT CARBAJAL FOR TRANSFER OF CARE.
--- NOTE | 2018-11-26 08:30 | NUR ---
BIBA FOR ALOC. PER EMS PT FOUND WONDERING IN [employer]. 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 PT HAS DIRT AROUND FACE AND HANDS. UPON ASSESSMENT, PT IS AAO X4, FULL CLEAR SPEECH. PERRLA BRISK 3 MM. EQUAL GRACIA STRENGTH TO UPPER AND LOWER EXTREMITIES. PT AMBULATED WITH SLOW STEADY GAIT. ER TO EVALUATE PT.
--- NOTE | 2018-11-26 08:40 | NUR ---
PT WAS OFFERED FLUIDS. PT TOLERATED WELL. AAOX4, FULL CLEAR SPEECH. NO SIGNS AND SYMPTOMS OF DISTRESS NOTED.
--- NOTE | 2018-11-26 09:15 | NUR ---
RECEIVED CALL FROM PT'S SISTER, STEVE VILLAREAL, STATES THAT SHE IS UNABLE TO CONCERT OR LECTURE HALL MANAGER PT DUE TO PT NOT WANTING HER TO CONCERT OR LECTURE HALL MANAGER PT. PT'S SISTER GAVE PT'S ROOMMATE'S PHONE # [phone].
--- NOTE | 2018-11-26 09:16 | NUR ---
CALLED ALENA AT FOR PT TAILERCPA. ALENA STATES THAT SHE CAN TAILERCPA PT.
--- NOTE | 2018-11-26 09:20 | NUR ---
PT WAS GIVEN A SACK LUNCH. PT WHEEL CHAIRED TO LOBBY BY STUDENT NURSE.
[2018-11-26 09:22] VITALS: BP 143/77
--- NOTE | 2018-11-26 09:22 | NUR ---
Patient discharged with v/s stable. Written and verbal after care instructions given and explained. Patient alert, oriented and verbalized understanding of instructions. Wheel Chair Assisted with to lobby All questions addressed prior to discharge. ID band removed. Patient advised to follow up with PMD. Rx of zyprexa given. Patient educated on indication of medication including possible reaction and side effects. Opportunity to ask questions provided and answered.
--- NOTE | 2018-11-26 12:25 | NUR ---
DISCHARGE PLANNING ER staff requesting assistance to dc this patient. Gregg spoke to patient's sister, Aster in regards to dc plan for this pt. Pt lives at [address] [place] [address] where she rents a room. Sister stated the landlord wasn't sure about accepting this patient back. Gregg contacted jolanta Gonzalez who stated she didn't want this patient to return to her home. Gregg inquired if this pt had paid her rent and jolanta confirmed. Gregg informed jolanta the pt should be allowed to stay at home until the end of the month and would have to give her a 30-day eviction notice. Jolanta understood and stated she plans to give the pt an eviction notice. Pt was provided with a list of room and boards to make future arrangements. Esmer Parry, ACSW Ext [phone]
== END 2018-11-26 09:22 | disposition home or self-care (01) ==
LOC: MED 07:43
DX: F20.9 Schizophrenia, unspecified (principal); Z79.899 Other long term (current) drug therapy; Z79.82 Long term (current) use of aspirin; Z79.84 Long term (current) use of oral hypoglycemic drugs
CPT/HCPCS: 99283

== ENCOUNTER 2018-11-28 12:59 | Inpatient (IN) | payer OTHER ==
[~2018-11-28] VITALS: Ht 165.1 cm; Wt 62.1 kg
--- NOTE | 2018-11-28 13:21 | NUR ---
PT PLACED IN BED 5
--- NOTE | 2018-11-28 13:35 | NUR ---
Dr. Barr evaluating patient at bedside.
[2018-11-28] MEDS ORDERED: HALOPERIDOL IM 5 MG/ML VIAL IM ONE (13:40)
[2018-11-28] MEDS ORDERED: LORazepam 2 MG/ML VIAL IM ONE (13:40)
--- NOTE | 2018-11-28 14:00 | NUR ---
Pt BIB EMS; The patient was noted by bystanders to have jumped out of a 1 story window. Medical history of schizophrenia; unable to obtained further information due to the patient's clinical conditon.
--- NOTE | 2018-11-28 14:01 | NUR ---
PLACED ON A 5150 BY [facility].
--- NOTE | 2018-11-28 14:01 | NUR ---
1:1 SUPERVISION AT BEDSIDE AT ALL TIMES. ENVIRONMENTAL ROOM CHECKS BEING DONE FOR SAFETY.
--- NOTE | 2018-11-28 14:04 | NUR ---
filter changing technician at bedside.
--- NOTE | 2018-11-28 14:22 | NUR ---
Lab and nurse at bedside
--- NOTE | 2018-11-28 14:25 | NUR ---
Bulmaro lobo in [facility] - 11/28/18 at 1429 by JUMANA lab at bedside
--- NOTE | 2018-11-28 14:28 | NUR ---
# 15 FR Urinary catheter inserted utilizing sterile technique. Immediate return of 35 ml dark yellow urine noted. Urine sample collected and sent to lab. Pt tolerated procedure well.
--- NOTE | 2018-11-28 14:35 | NUR ---
PATIENT WAS TAKEN TO CT
[2018-11-28 14:49] LABS: HEMATOCRIT 33.9 % (36-48); HEMOGLOBIN 10.9 g/dL (12.0-16.0); MEAN CORPUSCULAR HEMOGLOBIN 28 pg (27-31); MEAN CORPUSCULAR HGB CONC 32 g/dL (33-37); MEAN CORPUSCULAR VOLUME 87.2 fL (80-94); PLATELET COUNT (AUTO) 310 K/uL (140-450); RED BLOOD CELL COUNT(AUTO) 3.89 MIL/uL (4.20-5.40); RED CELL DISTRIBUTION WIDTH 16.6 % (11.6-13.7); WHITE BLOOD COUNT (AUTO) 15.3 K/uL (4.8-10.8)
[2018-11-28 15:00] LABS: BARBITURATE, URINE NEG. ng/ml (NEG <=200); BENZODIAZEPINE, URINE NEG. ng/mL (NEG <=200); CANNABINOID, URINE NEG. ng/mL (NEG <=50); COCAINE, URINE NEG. ng/mL (NEG <=300); OPIATE, URINE NEG. ng/mL (NEG <=2000); PHENCYCLIDINE SCREEN,URINE NEG. ng/mL (NEG <=25)
[2018-11-28 15:03] LABS: APPEARANCE,URINE CLEAR (CLEAR); BILIRUBIN,URINE NEGATIVE (NEGATIVE); BLOOD, URINE TRACE-I (NEGATIVE); LEUKOCYTE ESTERASE ,URINE NEGATIVE (NEGATIVE); NITRITE, URINE NEGATIVE (NEGATIVE); PH,URINE 5.5 (5.0-9.0); UGLUCOSE NEGATIVE (NEGATIVE)
[2018-11-28 15:05] LABS: ANION GAP 16.1 (8-16); CARBON DIOXIDE 24.7 mmol/L (21-32); CHLORIDE 119 mmol/L (98-107); CREATININE 1.5 mg/dL (0.6-1.3); GLUCOSE 120 mg/dL (74-106); POTASSIUM 3.8 mmol/L (3.5-5.1); UREA NITROGEN, BLOOD 45 mg/dL (7-18)
[2018-11-28 15:09] LABS: SODIUM SERUM 156 mmol/L (136-145)
[2018-11-28 15:12] LABS: COLOR,URINE AMBER (YELLOW)
[2018-11-28 15:12] LABS: LYMPHOCYTES % (MANUAL) 6 % (20-46); MONOCYTES % (MANUAL) 6 % (5-12)
--- NOTE | 2018-11-28 15:13 | NUR ---
Patient sleeping at this time. Respirations even and unlabored.
[2018-11-28 15:19] LABS: ALBUMIN 2.9 g/dL (3.4-5.0); ASPARTATE AMINOTRANSFERASE 56 U/L (15-37); TOTAL BILIRUBIN 0.8 mg/dL (0.0-1.0)
[2018-11-28 15:37] LABS: RBC,URINE 0-5 /HPF (0-5); WBC,URINE 0-5 /HPF (0-5)
[2018-11-28 15:38] LABS: URINE AMORPHOUS URATE 1+ /HPF (None Seen)
[2018-11-28] MEDS ORDERED: NACL 0.45% 1,000 ML IV ONE (15:55)
[2018-11-28] MEDS ORDERED: PIPERACILLIN/TAZOBACTAM 3.375 GM in DEXTROSE 5% 50 ML IV ONE (15:55)
[2018-11-28] MEDS ORDERED: VANCOMYCIN 1GM/DEXT 5% PREMIX 200 ML IV ONE (15:55)
[2018-11-28 15:57] LABS: CKMB RELATIVE INDEX 0.8 (0.0-2.5); CREATINE KINASE MB 4.7 ng/mL (0-3.6)
--- NOTE | 2018-11-28 16:00 | NUR ---
NO BEHAVIORAL PROBLEMS OBSERVED AT THIS TIME. PT APPEARS TO BE RESTING COMFORTABLY IN BED. VITAL SIGNS STABLE. ON ONGOING 1:1 SUPERVISION AT ALL TIMES.
[2018-11-28] MEDS ORDERED: PIPERACILLIN/TAZOBACTAM 3.375 GM VIAL IV ONE (16:39)
[2018-11-28] MEDS ORDERED: VANCOMYCIN 1,000 MG in DEXTROSE 5% 250 ML IV SCH (17:00)
[2018-11-28] MEDS ORDERED: NACL 0.9% 1,000 ML IV SCH (17:07)
[2018-11-28] MEDS ORDERED: VANCOMYCIN 1,000 MG VIAL ONE (17:07)
[2018-11-28] MEDS ORDERED: ONDANSETRON 4 MG/2 ML VIAL IM/IVP PRN ×2 (17:10→20:55)
[2018-11-28] MEDS ORDERED: MORPHINE SULFATE 2 MG/ML SYR IVP PRN (17:10)
[2018-11-28] MEDS ORDERED: HYDROcodone/APAP 5/325 MG 1 TAB TAB PO PRN (17:10)
--- NOTE | 2018-11-28 17:54 | NUR ---
PT ARRIVED ON THE UNIT WILL CONTINUE TO MONITOR
--- NOTE | 2018-11-28 17:54 | NUR ---
Patient admitted to care of Dr Waterman. Admited to Telemetry, room 110B. Belongings list completed. Report to RAJAT Light.
--- NOTE | 2018-11-28 17:59 | NUR ---
TAKING PT VITAL SIGNS PT FIGHTING ME PULLING MY ARMS PT CALLING ME THE ALLYSON AND MARA Addendum: 11/28/18 at 1940 by Nadege Frances RN MRSA COLLECTED
[2018-11-28 18:08] LABS: PROTHROMBIN TIME 10.7 secs (10.8-13.4)
[2018-11-28 18:36] LABS: MAGNESIUM 2.2 mg/dL (1.8-2.4); PHOSPHORUS 3.6 mg/dL (2.5-4.9)
[2018-11-28 19:30] VITALS: BP 115/53
--- NOTE | 2018-11-28 19:30 | NUR ---
RECEIVED BEDSIDE REPORT FROM DAY SHIFT NURSE. PATIENT IS SLEEPING AROUSABLE BY TOUCH AND NAME. RESPIRATION EVEN UNLABORED ON ROOM AIR. NO DISTRESS NOTED. SKIN IS WARM AND DRY. IV PATENT AND INTACT. SITTER AT BEDSIDE. PLAN OF CARE WAS UP TO DATE. ALL SAFETY MEASURES IN PLACE. BED IS AT LOW POSITION. SITTER AT BEDSIDE. WILL CONTINUE TO MONITOR.
--- NOTE | 2018-11-28 19:38 | NUR ---
ENDORSED PT TO PM RN PATIENT ASLEEP IN BED. ALL SAFETY MEASURES ARE IN PLACE IVF INFUSING. IVSITE PATENT AND SHOWS NO SIGNS OF INFILTRATION OR INFLAMMATION SITTER AT BEDSIDE
--- NOTE | 2018-11-28 20:00 | NUR ---
INITIAL ASSESSMENT DONE. VITALS WERE TAKEN. MULTIPLE BRUISES NOTED IN THE UPPER EXTREMITY. LEFT BUTTOCK OPEN WOUND NOTED. PATIENT COMPLAINED OF LEG PAIN. WILL CONTINUE TO MONITOR.
[2018-11-28] MEDS ORDERED: FAMOTIDINE 20 MG/2 ML VIAL IV PRN (20:55)
[2018-11-28] MEDS ORDERED: DEXT 5% / NACL 0.45% 1,000 ML IV SCH (20:55)
[2018-11-28] MEDS ORDERED: DOCUSATE SODIUM 100 MG GELCAP PO PRN (20:55)
[2018-11-28] MEDS ORDERED: ACETAMINOPHEN 325 MG TAB PO PRN (20:55)
--- NOTE | 2018-11-28 21:00 | NUR ---
PATIENT SLEEPING RESPIRATION EVEN UNLABORED ON ROOM AIR. NO DISTRESS NOTED. SITTER AT BEDSIDE. WILL CONTINUE TO MONITOR.
[2018-11-28 21:36] LABS: FREE T4 (FREE THYROXINE) 0.97 ng/dL (0.76-1.46); THYROID STIMULATING HORMONE 1.29 uIU/mL (0.34-3.74)
[2018-11-28] MEDS ORDERED: Z-GUARD PASTE TP PRN (22:00)
[2018-11-28] MEDS ORDERED: FOAM DRESSING TP PRN (22:00)
[2018-11-28] MEDS ORDERED: NACL 0.9% IRR 250 ML BOTTLE IR PRN (22:00)
[2018-11-28] MEDS ORDERED: NACL 0.45% 1,000 ML IV SCH (22:40)
[2018-11-28 22:47] LABS: ANION GAP 12.6 (8-16); CARBON DIOXIDE 25.8 mmol/L (21-32); CHLORIDE 117 mmol/L (98-107); GLUCOSE 116 mg/dL (74-106); POTASSIUM 3.4 mmol/L (3.5-5.1); SODIUM SERUM 152 mmol/L (136-145); UREA NITROGEN, BLOOD 34 mg/dL (7-18)
[2018-11-28] MEDS ORDERED: POTASSIUM CHL 20 MEQ/ 1/2 NS 1,000 ML IV SCH (23:00)
--- NOTE | 2018-11-28 23:00 | NUR ---
PATIENT MOANING AND IRRITABLE. COMPLAINING OF LEG PAIN 10/10. PRN PAIN MED ADMINISTER PER ORDER. WILL CONTINUE TO MONITOR.
[2018-11-28] MEDS: OLANZapine 5 MG TAB PO SCH (23:03)
[2018-11-28] MEDS ORDERED: PIPERACILLIN/TAZOBACTAM 2.25 GM VIAL IV ONE (23:13)
[2018-11-28] MEDS: PIPERACILLIN/TAZOBACTAM 2.25 GM in DEXTROSE 5% 50 ML IV SCH (23:35)
[2018-11-29] VITALS: BP 113/55
--- NOTE | 2018-11-29 | NUR ---
VITALS WERE TAKEN. PATIENT RECEIVED 600CC OF 1/2NS. HANGED NEW ORDER FOR IV FLUIDS NACL 0.45%-KCL 1000ML RUNNING AT 100ML/HR. WILL CONTINUE TO MONITOR.
--- NOTE | 2018-11-29 01:00 | NUR ---
EXPLAINED TO THE PATIENT THE NEED FOR BUCKS TRACTION. PATIENT PLACED IN BUCKS TRACTION WITH 10LBS WEIGHT AND OVERHEAD TRAPEZE. INSTRUCT PATIENT TO REPORT ANY PAIN OR PRESSURE FROM TRACTION EQUIPMENT. WILL CONTINUE TO MONITOR
--- NOTE | 2018-11-29 02:00 | NUR ---
PATIENT SLEEPING RESPIRATION EVEN UNLABORED ON ROOM AIR. NO DISTRESS NOTED. SITTER AT BEDSIDE. WILL CONTINUE TO MONITOR.
[2018-11-29] MEDS ORDERED: DEXT 5% / NACL 0.45% 1,000 ML IV SCH (03:20)
--- NOTE | 2018-11-29 03:30 | NUR ---
INSERT BRITO CATHETER 16 FR PATIENT TOLERATING IT WELL. YELLOW URINE DRAINING NOTED. WILL CONTINUE TO MONITOR.
[2018-11-29 04:00] VITALS: BP 116/57
--- NOTE | 2018-11-29 04:00 | NUR ---
VITALS WERE TAKEN. PATIENT IN STABLE CONDITION. NO DISTRESS NOTED. WILL CONTINUE TO MONITOR.
--- NOTE | 2018-11-29 04:00 | NUR ---
NO SIGN OF AGITATION NOTED. SITTER AT BEDSIDE.
[2018-11-29] MEDS: PIPERACILLIN/TAZOBACTAM 2.25 GM in DEXTROSE 5% 50 ML IV SCH ×6 (05:21→23:09)
[2018-11-29] MEDS ORDERED: PIPERACILLIN/TAZOBACTAM 2.25 GM VIAL IV ONE (05:26)
--- NOTE | 2018-11-29 05:55 | NUR ---
CHECKED PATIENT TRACTION SET UP. WEIGHT IS SUSPENDED AND NOT IN CONTACT WITH THE BED OR RESTING ON THE FLOOR. THE BODY IS ALIGN WITH THE FORCE OF TRACTION. ENCOURAGED PATIENT TO USE OVERHEAD TRAPEZE INSTEAD OF ELBOWS TO MOVE IN BED.
[2018-11-29 06:53] LABS: BASOPHILS % (AUTO) 0.3 % (0.0-2.0); EOSINOPHILS % (AUTO) 0.2 % (0.0-4.0); HEMATOCRIT 31.7 % (36-48); HEMOGLOBIN 10.3 g/dL (12.0-16.0); LYMPHOCYTES # (AUTO) 1.2 K/uL (2.5-16.5); LYMPHOCYTES % (AUTO) 9.2 % (20.5-51.1); MEAN CORPUSCULAR HEMOGLOBIN 28 pg (27-31); MEAN CORPUSCULAR HGB CONC 33 g/dL (33-37); MONOCYTES # (AUTO) 0.8 K/uL (0.8-1.0); MONOCYTES % (AUTO) 5.9 % (1.7-9.3); NEUTROPHILS # (AUTO) 11.2 K/uL (1.8-7.7); NEUTROPHILS % (AUTO) 84.4 % (42.2-75.2); PLATELET COUNT (AUTO) 275 K/uL (140-450); RED BLOOD CELL COUNT(AUTO) 3.65 MIL/uL (4.20-5.40); RED CELL DISTRIBUTION WIDTH 16.3 % (11.6-13.7); WHITE BLOOD COUNT (AUTO) 13.3 K/uL (4.8-10.8)
--- NOTE | 2018-11-29 07:28 | NUR ---
ENDORSED PATIENT TO DAY SHIFT NURSE. PATIENT IN STABLE CONDITION.
[2018-11-29 07:29] LABS: ANION GAP 14.4 (8-16); CARBON DIOXIDE 24.9 mmol/L (21-32); CHLORIDE 115 mmol/L (98-107); GLUCOSE 109 mg/dL (74-106); POTASSIUM 3.3 mmol/L (3.5-5.1); SODIUM SERUM 151 mmol/L (136-145); UREA NITROGEN, BLOOD 31 mg/dL (7-18)
--- NOTE | 2018-11-29 07:29 | NUR ---
RECEIVED BEDSIDE REPORT FROM PARTY PLAN SALES CONSULTANT NURSE, PT IS AAOX2, EMOTIONAL, ABLE TO FOLLOW COMMANDS AND MAKE NEEDS KNOWN, VSS, DENIES PAIN, NO S/S OF DISTRESS, DENIES SOB, CLEAR LUNG SOUNDS GRACIA., ON RA, DENIES CHEST PAIN, REGULAR HR, SOFT ABDOMEN WITH ACTIVE BOWEL SOUNDS, CONTINENT WITH B&B'S, SKIN IS WARM AND DRY TO TOUCH, LEFT LEG ON BUCKS TRACTION, WEIGHT 10LB, OPEN WOUND PRESENT (SEE WOUND ASSESSMENT), IV TO LEFT AC 20GA RUNNING D5 1/2NS AT 100 ML/HR. SAFETY MEASURES IN PLACE, CALL LIGHT WITHIN REACH, EXPLAINED PLAN OF CARE TO PT, PT VERBALIZED UNDERSTANDING, WILL CONTINUE TO MONITOR.
[2018-11-29 08:00] VITALS: BP 96/51
--- NOTE | 2018-11-29 08:13 | NUR ---
PATIENT HAS BEEN SCREENED AND CATEGORIZED HIGH NUTRITION RISK. PATIENT WILL BE SEEN WITHIN 1-2 DAYS OF ADMISSION. 11/29/18-11/30/[address]
[2018-11-29] MEDS ORDERED: Z-GUARD PASTE TP PRN (08:35)
[2018-11-29] MEDS ORDERED: FOAM DRESSING TP PRN (08:35)
--- NOTE | 2018-11-29 09:45 | NUR ---
SCHEDULED MEDICATION GIVEN, PT ABLE TO SWALLOW PILLS WHOLE AND TOLERATED WELL.
[2018-11-29] MEDS: LACTOBACILLUS RHAMNOSUS GG 1 EACH CAP PO SCH (09:57)
[2018-11-29] MEDS: OLANZapine 5 MG TAB PO SCH ×2 (09:57→20:10)
--- NOTE | 2018-11-29 11:38 | NUR ---
PODIATRY CAME IN TO SEE PATIENT'S FOOT, STATED SHE REMOVED THE LEFT BIG TOE'S TOE NAIL, NO BLEEDING, JUST USE IODINE TO TREAT THE TOE.
[2018-11-29 12:00] VITALS: BP 93/38
--- NOTE | 2018-11-29 12:00 | NUR ---
PT IS AGITATED SOMETIMES, VSS, DENIES PAIN, RELAXING SOMETIME.
--- NOTE | 2018-11-29 13:35 | NUR ---
TELEPHONE CONSENT TO SURGERY OBTAINED FROM PT'S SISTER DANA MITCHELL, TWO RN WITNESSED IT.
[2018-11-29] MEDS ORDERED: POTASSIUM CHLORIDE 10 MEQ TABER PO SCH (14:00)
[2018-11-29 16:00] VITALS: BP 97/42
--- NOTE | 2018-11-29 16:00 | NUR ---
PT IS RESTING IN BED, NO S/S OF DISTRESS, VSS, DENIES PAIN.
--- NOTE | 2018-11-29 19:30 | NUR ---
REPORT GIVEN TO PIPE LINE GAUGER NURSE FOR CONTINUE OF CARE, PT IS IN STABLE CONDITION AT THIS TIME.
--- NOTE | 2018-11-29 19:30 | NUR ---
ASSUMED CARE OF PATIENT, SITTER AT BEDSIDE AT ALL TIME. BUCKS TRACTION OF LEFT LEG ON. NO DISTRESS.
--- NOTE | 2018-11-29 20:00 | NUR ---
REPOSITIONED WITH LAW CLERK NOTED. BRITO CATHETER DRAINING WELL. PLAN OF CARE DISCUSSED WITH PATIENT, NEEDS REINFORCEMENT.
[2018-11-29] MEDS: HYDROcodone/APAP 7.5/325 MG 1 TAB PO PRN (20:10)
[2018-11-29 21:51] VITALS: BP 93/58
--- NOTE | 2018-11-29 22:00 | NUR ---
PERICARE DONE. HS CARE DONE WITH WOOL DYER. REPOSITIONED. ADVSISED NPO AFTER MIDNIGHT.
[2018-11-29] MEDS: MORPHINE SULFATE 2 MG/ML SYR IVP PRN (23:09)
[2018-11-30] VITALS (7 sets, daily range): BP systolic 93–139; BP diastolic 47–67
--- NOTE | 2018-11-30 00:24 | NUR ---
NPO AFTER MIDNIGHT FOR SURGERY IN AM. SITTER AT BEDSIDE ALL THE TIME.
[2018-11-30] MEDS: LORazepam 2 MG/ML VIAL IM/IVP PRN ×2 (01:19→06:29)
--- NOTE | 2018-11-30 02:00 | NUR ---
SITTER AT BEDSIDE AT ALL TIME. SLEEPING WELL. NO COMPLAINS.
--- NOTE | 2018-11-30 04:53 | NUR ---
REPOSITIONED WITH WARHEAD MAINTENANCE SPECIALIST. PERICARE DONE. NO COMPLAINS. ASLEEP EASILY AROUSABLE.
[2018-11-30] MEDS: PIPERACILLIN/TAZOBACTAM 2.25 GM in DEXTROSE 5% 50 ML IV SCH ×4 (05:28→23:16)
--- NOTE | 2018-11-30 06:00 | NUR ---
PATIENT BECOME AGITATED AND START PULLING OUT IV LINES AND BRITO CATHETER, 2 OCCUPATIONAL THERAPY TEACHER AND THIS RN AT BEDSIDE TO ATTEMPT TO CALM PATIENT DONE, VERY CONFUSE AND START KICKING STAFF MEMBER AND HITTING STAFF MEMBER WELL. ATIVAN GIVEN ORDERED.
--- NOTE | 2018-11-30 07:29 | NUR ---
ENDORSED CARE AT BEDSIDE WITH JUDE ALLEN RN. PATIENT IN STABLE CONDITION.
--- NOTE | 2018-11-30 07:30 | NUR ---
RECEIVED REPORT FROM MOTOR AND GENERATOR BRUSH MAKER NURSE. PATIENT LYING DOWN IN BED, CONFUSED TRYING TO PULL OUT IV LINES, SITTER AT BEDSIDE. AAOX1, CONFUSED. HAS LEFT BUTTOCK WOUND. IV SITE INTACT, PATENT, AND INFUSING IVF PER MD ORDERS. RESPIRATIONS EVEN, UNLABORED, ON ROOM AIR. REVIEWED PLAN OF CARE WITH PATIENT. PATIENT VERBALIZED UNDERSTANDING. SAFETY MEASURES IN PLACE, CALL LIGHT WITHIN REACH. WILL CONTINUE TO MONITOR.
[2018-11-30 08:28] LABS: BASOPHILS # (AUTO) 0.1 K/uL (0.00-0.22); BASOPHILS % (AUTO) 0.5 % (0.0-2.0); EOSINOPHILS # (AUTO) 0.2 K/uL (0-0.4); EOSINOPHILS % (AUTO) 1.8 % (0.0-4.0); HEMATOCRIT 29.5 % (36-48); HEMOGLOBIN 9.7 g/dL (12.0-16.0); LYMPHOCYTES # (AUTO) 1.2 K/uL (2.5-16.5); LYMPHOCYTES % (AUTO) 10.6 % (20.5-51.1); MEAN CORPUSCULAR HEMOGLOBIN 29 pg (27-31); MEAN CORPUSCULAR HGB CONC 33 g/dL (33-37); MEAN CORPUSCULAR VOLUME 86.8 fL (80-94); MONOCYTES # (AUTO) 0.5 K/uL (0.8-1.0); MONOCYTES % (AUTO) 3.9 % (1.7-9.3); NEUTROPHILS # (AUTO) 9.7 K/uL (1.8-7.7); NEUTROPHILS % (AUTO) 83.2 % (42.2-75.2); PLATELET COUNT (AUTO) 245 K/uL (140-450); RED CELL DISTRIBUTION WIDTH 16.2 % (11.6-13.7); WHITE BLOOD COUNT (AUTO) 11.7 K/uL (4.8-10.8)
--- NOTE | 2018-11-30 08:35 | NUR ---
WOUND CARE EVALUATION NOTE: REASON FOR EVALUATION: R/L BUTTOCKS ULCER WOUND SKIN ASSESSMENT DONE WITH THIS 72 Y/O FEMALE PT ADMITTED TO [facility] WITH INITIAL DX OF S/P FALL WITH FRACTURE. PAST MEDICAL HX INCLUDES PARANOID SCHIZOPHRENIA, PRESSURE ULCER AND FALL HX. ALL ABOVE INFORMATION OBTAINED FROM ADMISSION H&P. PT. ADMITTED WITH PRESSURE ULCERS LEFT AND RIGHT GLUTEAL AND RIGHT HEEL. PT IS AWAKE, RESTLESS, UNCOORPERATE, UNABLE TO STAY STILL FOR PHOTO TAKEN TO RIGHT HEEL. SKIN IS WARM AND MOIST, MULTIPLE DRY SCABS AND ECCHYMOSIS TO UPPER ARMS BLE NO HAIR GROWTH, NO EDEMA TO RIGHT LOWER LEGS. RIGHT DORSAL PEDAL PULSES PRESENT AND NORMAL. UNABLE TO ASSESS TO LLE DUE TO BUCKS BOOT TRACTION IN PLACE WITH WEIGH PLAN OF CARE DISCUSSED WITH PRIMARY RN INFORMED OF RIGHT AND PER PRIMARY RN THAT PT. SCHEDULE FOR ORIF TODAY. INTEGUMENTARY: -PRESSURE ULCER STAGE 2 TO RIGHT HEEL 4X4CM CLEAR FLUIDS BLISTER WITH INTACT SKIN -LEFT BUTTOCK PRESSURE ULCER STAGE 2 WITH 2X2X0.1CM WOUND BED 100% PINK, CLEAN MOIST NO ODOR,WOUND EDGE FLAT, NICKY WOUND SKIN INTACT WITH SURROUNDING LIGHT PURPLE COLOR EXTENDED TO RIGHT BUTTOCK INDICATED FURTHER DAMAGE - RIGHT BUTTOCK PRESSURE ULCER STAGE 1, 3X3CM, SKIN INTACT WITH SURROUNDING LIGHT PURPLE COLOR MERGED WITH LEFT BUTTOCK AND INDICATED FURTHER DAMAGE -SACRALCOCCYX SKIN CLEAN AND INTACT NO PRESSURE ULCER AT THIS TIME, HOWEVER, AT RISK DUE TO FRICTION PT IS RESTLESS RECOMMENDATIONS: -CLEANSE LEFT BUTTOCK WITH SOAP AND WATER, PAT DRY, APPLY Z GUARD AND COVER WITH OPTIFOAM QD AND PRN WITH SOILING. -APPLY OPTIFOAM TO RIGHT HEEL BLISTER AND RIGHT BUTTOCK QD AND PRN SOILING -HEEL RAISER TO RIGHT HEEL AT ALL TIMES -OFFLOAD RIGHT HEELS BY PLACING PILLOWS UNDER CALVES UNLESS OTHERWISE CONTRAINDICATED -PRESSURE REDISTRIBUTIONS SURFACE THERAPY -TURN AND REPOSITION Q2H, OFFLOAD BUTTOCKS -CONTINUE TO FOLLOW RD RECOMMENDATIONS ALL ABOVE RECOMMENDATIONS DISCUSSED WITH PRIMARY RN PLEASE CONTACT WOUND CARE NURSE FOR ANY QUESTION AND CHANGE OF WOUND CONDITION.
[2018-11-30 08:58] LABS: ANION GAP 10.4 (8-16); CHLORIDE 110 mmol/L (98-107); CREATININE 0.9 mg/dL (0.6-1.3); GLUCOSE 97 mg/dL (74-106); POTASSIUM 4.4 mmol/L (3.5-5.1); SODIUM SERUM 142 mmol/L (136-145); UREA NITROGEN, BLOOD 14 mg/dL (7-18)
[2018-11-30] MEDS: OLANZapine 5 MG TAB PO SCH ×2 (09:00→21:56)
[2018-11-30] MEDS: LACTOBACILLUS RHAMNOSUS GG 1 EACH CAP PO SCH (09:00)
--- NOTE | 2018-11-30 09:00 | NUR ---
PATIENT CONFUSED TRYING TO PULL OUT TUBES. TRIED GIVEN PATIENT SCHEDULED ORAL MEDICATIONS, PATIENT REFUSES AND TRIES TO SPIT THEM OUT. WILL CONTINUE TO MONITOR.
[2018-11-30 09:02] LABS: MAGNESIUM 1.8 mg/dL (1.8-2.4); PHOSPHORUS 2.6 mg/dL (2.5-4.9)
--- NOTE | 2018-11-30 09:15 | NUR ---
OR NURSES ON UNIT READY TO TAKE PATIENT FOR LEFT HIP SURGERY. WILL CONTINUE TO MONITOR WHEN PATIENT RETURNS.
[2018-11-30] MEDS: DEXT 5% /NACL 0.9% 1,000 ML IV SCH ×2 (09:19→17:30)
[2018-11-30] MEDS ORDERED: PROPOFOL 200 MG/20 ML VIAL IV ONE (09:35)
[2018-11-30] MEDS ORDERED: SEVOFLURANE 250 ML BTL INH ONE (09:35)
[2018-11-30] MEDS ORDERED: fentaNYL 0.05 MG/ML VIAL ONE (09:46)
[2018-11-30] MEDS ORDERED: LACTATED RINGERS 1,000 ML IV SCH (10:10)
[2018-11-30] MEDS ORDERED: HYDROmorphone 1 MG/ML AMP IVP PRN (10:10)
[2018-11-30] MEDS ORDERED: diphenhydrAMINE 50 MG/ML VIAL IVP PRN (10:10)
[2018-11-30] MEDS ORDERED: ONDANSETRON 4 MG/2 ML VIAL IVP PRN (10:10)
[2018-11-30] MEDS ORDERED: BUPIVACAINE-MPF/EPI 0.25% 30 ML VIAL INJ ONE (10:54)
--- NOTE | 2018-11-30 11:50 | NUR ---
PATIENT BACK FROM OR. LEFT ORIF PERFORMED. DRESSING DRY AND INTACT. V/S STABLE. NO DISTRESS NOTED. IVF RECONNECTED PER MD ORDERS. SAFETY MEASURES IN PLACE, CALL LIGHT WITHIN REACH. WILL CONTINUE TO MONITOR.
--- NOTE | 2018-11-30 12:00 | NUR ---
PATIENT LYING DOWN IN BED CONTINUING TO TRY TO PULL OUT IV LINE, BRITO LINE, AND TELE MONITORING. SOFT WRIST RESTRAINTS PLACED ON PATIENT PER MD ORDERS. WILL CONTINUE TO MONITOR.
--- NOTE | 2018-11-30 12:56 | NUR ---
SCHEDULED MEDICATIONS DUE GIVEN. WILL CONTINUE TO MONITOR.
[2018-11-30] MEDS: Z-GUARD PASTE TP SCH (13:38)
--- NOTE | 2018-11-30 14:56 | NUR ---
11/30/18 RD INITIAL ASSESSMENT COMPLETED PLEASE REFER TO NUTRITION ASSESSMENT UNDER CARE ACTIVITY FOR ESTIMATED NUTRITIONAL NEEDS. 1. CONTINUE MECHANICAL SOFT NA2GM DIET WITH ENSURE BID TOLERATED 2. RECOMMENDED VITAMIN C 500 MG BID FOR MULTIPLE PRESSURE ULCERS 3. RD TO FOLLOW-UP 3-5 DAYS, MODERATE RISK ALLEN VILLEDA, RD
--- NOTE | 2018-11-30 16:00 | NUR ---
CHECKED BLOOD PRESSURE, 93/52, [address] MCCORMACK[address] TO CHECK PATIENT.
--- NOTE | 2018-11-30 16:04 | NUR ---
SW attempted to conduct assessment with patient. Patient was unavailable to speak per patient's medical staff. DYLLAN called Aster Blankenship [phone]. SW left voicemail. DYLLAN will follow up.
--- NOTE | 2018-11-30 16:20 | NUR ---
MD AT BEDSIDE. GLUCOSE CHECKED AT 113. PER MD GIVE 500 ML BOLUS NS AND RECHECK FIREBREAK CUTTER. WILL CONTINUE TO MONITOR. Addendum: 11/30/18 at 1713 by Hadley Carrington RN "RECHECK BP"
[2018-11-30] MEDS ORDERED: NACL 0.9% 500 ML IV SCH (16:54)
--- NOTE | 2018-11-30 18:01 | NUR ---
PATIENT LYING DOWN IN BED. NO DISTRESS NOTED. BLOOD PRESSURE 110/54, 97 PULSE AFTER BOLUS. NOTIFIED DR. MCCORMACK. NO NEW ORDERS. SCHEDULED MEDICATIONS DUE GIVEN. WILL CONTINUE TO MONITOR.
--- NOTE | 2018-11-30 19:19 | NUR ---
GAVE REPORT TO TAX CREDIT LEASING CONSULTANT NURSE FOR CONTINUITY OF CARE. PATIENT IN STABLE CONDITION.
--- NOTE | 2018-11-30 19:20 | NUR ---
Received endorsement from AM shift RN; patient resting comfortably in bed. Introduced self, updated board. No SOB or distress noted, on room air. IV site on left hand, 22 gauge, running IVF at 100mL/hr. Patient noted with soft wrist restraints, to be renewed at 1107 12/01/2018. Bed in the lowest position, call light within reach. Initial assessment done. Will continue to monitor.
--- NOTE | 2018-11-30 20:42 | NUR ---
Dr. Santillan at bedside; discontinued hold.
--- NOTE | 2018-11-30 21:59 | NUR ---
Due meds given, tolerated well.
[2018-11-30] MEDS: MORPHINE SULFATE 2 MG/ML SYR IVP PRN (23:00)
[2018-12-01] VITALS: BP 93/42
--- NOTE | 2018-12-01 00:14 | NUR ---
Vitals checked; BP 93/42, MAP 59. Dr. Cherry made aware; orders received and will carry out. Will continue to monitor. Addendum: 12/01/18 at 0053 by Brannon Carreno RN Fluid bolus administered.
[2018-12-01] MEDS ORDERED: NACL 0.9% 1,000 ML IV ONE (00:15)
[2018-12-01] MEDS: Z-GUARD PASTE TP SCH ×2 (00:29→12:30)
--- NOTE | 2018-12-01 01:44 | NUR ---
Patricia - 99/40 Addendum: 12/01/18 at 0145 by Brannon Carreno RN Addendum - 99
[2018-12-01] MEDS ORDERED: MIDODRINE 5 MG TAB PO PRN (01:50)
[2018-12-01] MEDS: DEXT 5% /NACL 0.9% 1,000 ML IV SCH ×2 (01:59→12:31)
[2018-12-01 04:00] VITALS: BP 100/54
--- NOTE | 2018-12-01 04:10 | NUR ---
Vitals taken - BP 120/44. No distress noted. Patient also noted with large BM at this time. Patient cleaned, chux and linens changed.
[2018-12-01] MEDS: PIPERACILLIN/TAZOBACTAM 2.25 GM in DEXTROSE 5% 50 ML IV SCH ×3 (05:00→17:40)
--- NOTE | 2018-12-01 06:02 | NUR ---
Vitals stable, due meds given. Will endorse to AM shift RN for continuity of care.
--- NOTE | 2018-12-01 07:15 | NUR ---
RECEIVED REPORT FROM ASSEMBLER HANDBAGS NURSE. PATIENT LYING DOWN IN BED SLEEPING, AROUSABLE BY VOICE. NO DISTRESS NOTED. DENIES ANY PAIN. AAOX2, CALM, COOPERATIVE, SKIN COLOR APPROPRIATE TO ETHNICITY, WARM TO TOUCH. HAS LEFT HIP SURGICAL WOUND S/P LEFT ORIF 11/30/18. HAS RIGHT HEEL BLISTER, SACRAL WOUND, AND LEFT BUTTOCK WOUND NOTED, DRESSING DRY AND INTACT. RESPIRATIONS EVEN, UNLABORED, ON ROOM AIR. IV SITE INTACT, PATENT, AND INFUSING IVF PER MD ORDERS. REVIEWED PLAN OF CARE WITH PATIENT. REINFORCEMENT NEEDED. SAFETY MEASURES IN PLACE, CALL LIGHT WITHIN REACH. WILL CONTINUE TO MONITOR.
[2018-12-01 07:30] LABS: HEMOGLOBIN 8.5 g/dL (12.0-16.0); MEAN CORPUSCULAR HEMOGLOBIN 28 pg (27-31); MEAN CORPUSCULAR HGB CONC 33 g/dL (33-37); MEAN CORPUSCULAR VOLUME 86.7 fL (80-94); PLATELET COUNT (AUTO) 231 K/uL (140-450); RED BLOOD CELL COUNT(AUTO) 2.99 MIL/uL (4.20-5.40); RED CELL DISTRIBUTION WIDTH 15.9 % (11.6-13.7); WHITE BLOOD COUNT (AUTO) 13.4 K/uL (4.8-10.8)
[2018-12-01 07:38] LABS: SODIUM SERUM 140 mmol/L (136-145)
[2018-12-01 07:40] LABS: ANION GAP 9.4 (8-16); CARBON DIOXIDE 25.4 mmol/L (21-32); CHLORIDE 108 mmol/L (98-107); GLUCOSE 123 mg/dL (74-106); POTASSIUM 2.8 mmol/L (3.5-5.1); UREA NITROGEN, BLOOD 10 mg/dL (7-18)
[2018-12-01 07:41] LABS: CREATININE 0.8 mg/dL (0.6-1.3)
[2018-12-01 07:54] LABS: BASOPHILS % (MANUAL) 0 % (0-2); EOSINOPHILS % (MANUAL) 2 % (0-4); LYMPHOCYTES % (MANUAL) 12 % (20-46); MONOCYTES % (MANUAL) 4 % (5-12)
[2018-12-01 07:56] LABS: MAGNESIUM 1.4 mg/dL (1.8-2.4); PHOSPHORUS 2.7 mg/dL (2.5-4.9)
[2018-12-01 08:00] VITALS: BP 112/43
[2018-12-01] MEDS: HYDROcodone/APAP 7.5/325 MG 1 TAB PO PRN ×2 (08:47→22:21)
[2018-12-01] MEDS: LACTOBACILLUS RHAMNOSUS GG 1 EACH CAP PO SCH (08:48)
[2018-12-01] MEDS: OLANZapine 5 MG TAB PO SCH ×2 (08:49→20:21)
[2018-12-01] MEDS ORDERED: POTASSIUM CHLORIDE 10 MEQ TABER PO SCH (08:50)
[2018-12-01] MEDS ORDERED: POTASSIUM CHLORIDE 40 MEQ, LIDOCAINE MPF 1% - 5 mL VIAL 25 MG in NACL 0.9% 250 ML IV ONE (08:50)
[2018-12-01] MEDS ORDERED: MAG SULF 2000 MG/WATER PREMIX 100 ML IV ONE (08:50)
--- NOTE | 2018-12-01 08:50 | NUR ---
DYLLAN received voice mail from patient's sister Aster Blankenship [phone]. DYLLAN attempted to call Tierrarufina back. DYLLAN left voicemail. DYLLAN will follow up.
--- NOTE | 2018-12-01 08:54 | NUR ---
PATIENT COMPLAINS OF LEFT HIP PAIN S/P LEFT HIP ORIF. NORCO GIVEN. OTHER SCHEDULED MEDICATIONS DUE GIVEN. WILL CONTINUE TO MONITOR.
--- NOTE | 2018-12-01 10:22 | NUR ---
SCHEDULED MEDICATIONS DUE GIVEN. CONDITION UNCHANGED. WILL CONTINUE TO MONITOR.
[2018-12-01 12:00] VITALS: BP 95/45
--- NOTE | 2018-12-01 12:33 | NUR ---
PATIENT LYING DOWN IN BED SLEEPING, AROUSABLE BY VOICE. NO DISTRESS NOTED. DENIES ANY PAIN. SCHEDULED MEDICATIONS DUE GIVEN. WILL CONTINUE TO MONITOR.
--- NOTE | 2018-12-01 15:30 | NUR ---
PATIENT LYING DOWN IN BED SLEEPING, AROUSABLE BY VOICE. NO DISTRESS NOTED. DENIES ANY PAIN. SCHEDULED MEDICATIONS DUE GIVEN. WILL CONTINUE TO MONITOR.
[2018-12-01 16:00] VITALS: BP 95/47
--- NOTE | 2018-12-01 17:00 | NUR ---
PATIENT LYING DOWN IN BED. NO DISTRESS NOTED. CONDITION UNCHANGED. WILL CONTINUE TO MONITOR.
[2018-12-01] MEDS: NACL 0.9% 1,000 ML IV SCH (17:24)
[2018-12-01] MEDS: MIDODRINE 5 MG TAB PO PRN ×2 (17:24→22:22)
[2018-12-01 19:01] LABS: ANION GAP 10.9 (8-16); CARBON DIOXIDE 23.4 mmol/L (21-32); CHLORIDE 109 mmol/L (98-107); CREATININE 0.8 mg/dL (0.6-1.3); GLUCOSE 121 mg/dL (74-106); POTASSIUM 3.3 mmol/L (3.5-5.1); SODIUM SERUM 140 mmol/L (136-145); UREA NITROGEN, BLOOD 14 mg/dL (7-18)
--- NOTE | 2018-12-01 19:24 | NUR ---
RECEIVED BEDSIDE REPORT FROM DAY RN. PT IS AAO X3-4 IS FORGETFUL. PT S/P L ORIF DRESSING IS C/D/I. HAS ABDUCTOR PILLOW IN PLACE. PT WITH BRITO CATH DRAINING DARK YELLOW URINE. IV ON L HAND 22G INFUSING NS AT 70M/H. PT WITH SACRAL ULCER AND L BUTTOCK DRESSING IS C/D/I. PLAN OF CARE DISCUSSED WITH PT. SAFETY MEASURES ARE IN PLACE. CALL LIGHT IS WITHIN REACH. WILL CONTINUE TO MONITOR.
--- NOTE | 2018-12-01 19:37 | NUR ---
GAVE REPORT TO DRAY TRUCK DRIVER NURSE FOR CONTINUITY OF CARE. PATIENT IN STABLE CONDITION.
[2018-12-01 20:00] VITALS: BP 96/44
[2018-12-01] MEDS: ACETAMINOPHEN 325 MG TAB PO PRN (20:21)
--- NOTE | 2018-12-01 20:21 | NUR ---
VITAL SIGNS ARE WITHIN NORMAL LIMITS. CHINO MEDICATIONS GIVEN AND ADMINISTERED TYLENOL FOR MILD PAIN AND TEMP 100.0. COOLING MEASURES ARE IN PLACE. CALL LIGHT IS WITHIN REACH. WILL CONTINUE TO MONITOR.
--- NOTE | 2018-12-01 22:22 | NUR ---
REPOSITION PT FOR COMFORT AND ADMINISTERED NORCO FOR 6/10 PAIN. ALL NEEDS MET AT THIS TIME. CALL LIGHT IS WITHIN REACH. WILL CONTINUE TO MONITOR.
[2018-12-01] MEDS ORDERED: KCL 20 MEQ/WATER INJ PREMIX 100 ML IV SCH (22:30)
[2018-12-02] VITALS: BP 104/56
--- NOTE | 2018-12-02 00:25 | NUR ---
Jesse HUANG COMPLETE. ZOSYN IVPB NOW INFUSING PER ORDERS. VITAL SIGNS ARE WITHIN NORMAL LIMITS. ALL NEEDS MET AT THIS TIME. WILL CONTINUE TO MONITOR.
[2018-12-02] MEDS: PIPERACILLIN/TAZOBACTAM 2.25 GM in DEXTROSE 5% 50 ML IV SCH ×4 (00:33→23:50)
[2018-12-02] MEDS: Z-GUARD PASTE TP SCH ×2 (00:42→16:09)
--- NOTE | 2018-12-02 01:10 | NUR ---
PATIENT HAD LARGE BM AND WAS CLEANED BY CNAS. PT GOT AGITATED AND TRIED HITTING NURSE AND PT PULLED OUT BRITO CATH. REORIENTED PT. PAGED DR BURNS PER ORDER FOR SOFT WRIST RESTRAINTS AND OK TO LEAVE BRITO CATH OUT FOR NOW. WILL CONTINUE TO MONITOR PATIENT.
[2018-12-02] MEDS: LORazepam 2 MG/ML VIAL IM/IVP PRN ×3 (01:41→20:06)
--- NOTE | 2018-12-02 01:41 | NUR ---
PT YELLING, "DEANNE HELP ME" AND KEEPS PULLING TELE MONITOR OFF DESPITE ON RESTRAINTS. ADMINISTERED ATIVAN. WILL CONTINUE TO MONITOR.
--- NOTE | 2018-12-02 02:00 | NUR ---
PATIENT IS MORE RELAX NOW. ON TELE MONITOR. SOFT WRIST RESTRAINTS REMAIN ON. ORIENTED PT TO ROOM,STAFF, AND CALL LIGHT. ALL NEEDS MET AT THIS TIME. CALL LIGHT IS WITHIN REACH. WILL CONTINUE TO MONITOR.
[2018-12-02 04:00] VITALS: BP 134/45
--- NOTE | 2018-12-02 04:07 | NUR ---
VITAL SIGNS ARE WITHIN NORMAL LIMITS. PATIENT IS MORE RELAXED AND COOPERATIVE. ALL NEEDS MET. SAFETY MEASURES ARE IN PLACE.
--- NOTE | 2018-12-02 05:50 | NUR ---
PT WAS CLEANED AND REPOSITION FOR COMFORT. HEEL PROTECTORS ON. RESTRAINTS REMOVED. HOB ELEVATED. GAVE APPLE JUICE PER REQUEST. SAFETY MEASURES ARE IN PLACE. WILL CONTINUE TO MONITOR.
[2018-12-02] MEDS: NACL 0.9% 1,000 ML IV SCH ×2 (06:17→20:21)
--- NOTE | 2018-12-02 07:15 | NUR ---
GAVE BEDSIDE REPORT TO DAY RN. PT ENDORSED IN STABLE CONDITION.
--- NOTE | 2018-12-02 07:16 | NUR ---
RECEIVED REPORT FROM FEATHER MIXER NURSE. PATIENT LYING DOWN IN BED SLEEPING, AROUSABLE BY VOICE. NO DISTRESS NOTED. DENIES ANY PAIN. AAOX4, CALM, COOPERATIVE, SKIN COLOR APPROPRIATE TO ETHNICITY, WARM TO TOUCH. HAS LEFT HIP SURGICAL WOUND S/P LEFT ORIF 11/30/18. HAS RIGHT AND LEFT HEEL BLISTER, SACRAL WOUND, AND LEFT BUTTOCK WOUND NOTED, DRESSING DRY AND INTACT. RESPIRATIONS EVEN, UNLABORED, ON ROOM AIR. IV SITE INTACT, PATENT, AND INFUSING IVF PER MD ORDERS. REVIEWED PLAN OF CARE WITH PATIENT. REINFORCEMENT NEEDED. SAFETY MEASURES IN PLACE, CALL LIGHT WITHIN REACH. WILL CONTINUE TO MONITOR.
[2018-12-02 08:00] VITALS: BP 124/58
[2018-12-02] MEDS: LACTOBACILLUS RHAMNOSUS GG 1 EACH CAP PO SCH (09:36)
[2018-12-02] MEDS: OLANZapine 5 MG TAB PO SCH ×2 (09:36→20:04)
--- NOTE | 2018-12-02 09:42 | NUR ---
PATIENT LYING DOWN IN BED. NO DISTRESS NOTED. DENIES ANY PAIN. SCHEDULED MEDICATIONS DUE GIVEN WILL CONTINUE TO MONITOR.
[2018-12-02 11:30] VITALS: BP 113/58
--- NOTE | 2018-12-02 11:30 | NUR ---
PATIENT FOUND IN SUPINE POSITION ON FLOOR, UNWITNESSED, ON LEFT SIDE OF BED, RESPONSIVE, AAOX3, COOPERATIVE. DENIES ANY PAIN. PATIENT SAYS "I WAS TRYING TO GO OUT". BOTH LEFT SIDE RAILS OF BED UP AND RIGHT UPPER RAIL UP ON BED BEFORE FALL. BED ALARM LIGHT STILL ON IN THE BED UPON DISCOVERING PATIENT, HOWEVER, NO BED ALARM WAS HEARD PRIOR TO PATIENT FALL. BED HAD TRAPEZE BAR SETUP WITH FOWLER'S TRACTION WEIGHTS HANGING ON BOTTOM OF BED. CALL LIGHT WAS IN PATIENT BED, HOWEVER, CALL LIGHT WAS NOT WORKING DUE TO PATIENT BEING IN 5150 MODIFIED ROOM. NO OBSERVABLE SIGNS OF INJURIES S/P FALL, NOR ANY BLEEDING. PLACED PATIENT BACK ON BED SAFELY WITH STAFF ASSISTANCE. S/P FALL PROTOCOL MEASURES TAKEN, V/S TAKEN, NOTIFIED CARD LACER JACQUARD, MD, AND COOKY MACHINE OPERATOR. MD TO INPUT HEAD CT AND XRAY ORDERS. RIENFORCED PATIENT EDUCATION ON STAYING IN BED D/T S/P LEFT ORIF. WILL CONTINUE TO MONITOR.
--- NOTE | 2018-12-02 12:50 | NUR ---
FAXED PT'S FACE SHEET AND CT SCAN ORDER [place] [facility] [place], CONFIRMATION RECEIVED AND ATTACHED TO PT'S CHART. SPOKE WITH BERNICE WELL STATED THAT SHE RECEIVED THE FAX. CALLED [facility], SPOKE WITH NANCY MENDOZA FOR [facility] TRANSPORT WILL BE AT 1320 HRS. [facility] VOUCHER FAXED TO [facility], CONFIRMATION RECEIVED. DR. MARINO AND JUDE-RN ASSIGNED NOTIFIED.
--- NOTE | 2018-12-02 13:30 | NUR ---
[facility] TRANSPORT ON UNIT TO TAKE PATIENT TO [place] FOR CT SCAN OF HEAD. WILL CONTINUE TO MONITOR WHEN PATIENT RETURNS ON UNIT.
[2018-12-02] MEDS ORDERED: LACTULOSE 20 GM/30 ML UDC PO SCH (13:40)
[2018-12-02 16:00] VITALS: BP 146/63
--- NOTE | 2018-12-02 16:00 | NUR ---
PATIENT BACK FROM CT SCAN FROM [facility]. PATIENT IN AGITATED MOOD, THRASHING AROUND WITH LEGS AND ARMS. SAYING "I'M THE [facility], LEAVE ME ALONE". ABLE TO GET PATIENT TO [facility] BED SAFELY. WILL CONTINUE TO MONITOR.
--- NOTE | 2018-12-02 16:05 | NUR ---
PATIENT YELLING, TRYING TO CLIMB OUT OF BED. XRAY AT BEDSIDE TRYING TO DO XRAY'S BUT PATIENT REFUSING SAYING "SHE DOES NOT WANT TO GET RAPED". VERBALLY TALKED TO PATIENT AND REINFORCED THAT SHE IN HOSPITAL SETTING AND REASSURED HER THAT WE ARE TRYING TO HELP HER, NOT HURT HER. PATIENT NOT LISTENING AT THIS TIME. ATIVAN GIVEN AT THIS TIME VIA IM D/T NO IV SITE IN PLACE PATIENT PULLED OUT. WILL CONTINUE TO MONITOR. SITTER AT BEDSIDE.
--- NOTE | 2018-12-02 17:44 | NUR ---
PATIENT SITTING IN BED EATING HER DINNER. NO DISTRESS NOTED. INTERMITTENT CONFUSION AND FORGETFULNESS. SCHEDULED MEDICATIONS DUE GIVEN. WILL CONTINUE TO MONITOR.
[2018-12-02 18:07] LABS: BASOPHILS % (AUTO) 0.3 % (0.0-2.0); EOSINOPHILS # (AUTO) 0.1 K/uL (0-0.4); HEMATOCRIT 26.9 % (36-48); HEMOGLOBIN 8.9 g/dL (12.0-16.0); LYMPHOCYTES # (AUTO) 0.7 K/uL (2.5-16.5); LYMPHOCYTES % (AUTO) 6.3 % (20.5-51.1); MEAN CORPUSCULAR HEMOGLOBIN 28 pg (27-31); MEAN CORPUSCULAR HGB CONC 33 g/dL (33-37); MEAN CORPUSCULAR VOLUME 85.6 fL (80-94); MONOCYTES # (AUTO) 0.5 K/uL (0.8-1.0); MONOCYTES % (AUTO) 4.5 % (1.7-9.3); NEUTROPHILS # (AUTO) 10.1 K/uL (1.8-7.7); NEUTROPHILS % (AUTO) 87.9 % (42.2-75.2); PLATELET COUNT (AUTO) 277 K/uL (140-450); RED BLOOD CELL COUNT(AUTO) 3.14 MIL/uL (4.20-5.40); RED CELL DISTRIBUTION WIDTH 15.7 % (11.6-13.7); WHITE BLOOD COUNT (AUTO) 11.5 K/uL (4.8-10.8)
[2018-12-02 18:11] LABS: CHLORIDE 106 mmol/L (98-107); CREATININE 0.7 mg/dL (0.6-1.3); GLUCOSE 137 mg/dL (74-106); POTASSIUM 3.2 mmol/L (3.5-5.1); SODIUM SERUM 138 mmol/L (136-145); UREA NITROGEN, BLOOD 10 mg/dL (7-18)
[2018-12-02 18:15] LABS: ANION GAP 11.3 (8-16); CARBON DIOXIDE 23.9 mmol/L (21-32)
--- NOTE | 2018-12-02 19:26 | NUR ---
GAVE REPORT TO HEALTHCARE FINANCIAL ANALYST FOR CONTINUITY OF CARE. PATIENT IN STABLE CONDITION.
--- NOTE | 2018-12-02 19:27 | NUR ---
RECEIVED BEDSIDE REPORT FROM DAY SHIFT NURSEJUDE. PT AWAKE, LYING IN BED. NO DISTRESS NOTED. NO S/S OF SOB NOTED IN ROOM AIR. SKIN WARM AND DRY TO TOUCH. HAS LEFT HIP SURGICAL WOUND S/P LEFT ORIF ON 11/30/18. HAS RIGHT AND LEFT HEEL BLISTER, SACRAL WOUND, AND LEFT BUTTOCK WOUND NOTED, DRESSING DRY AND INTACT. IV SITE ON R FINGER, 22G, INTACT, PATENT, AND INFUSING IVF PER MD ORDERS. REVIEWED PLAN OF CARE WITH PATIENT. REINFORCEMENT NEEDED. SAFETY MEASURES IN PLACE, CALL LIGHT WITHIN REACH. WILL CONTINUE TO MONITOR.
--- NOTE | 2018-12-02 19:45 | NUR ---
VS CHECKED, HR 148, NOTIFIED TO DR. BURNS. ORDER EKG. WILL CONTINUE TO MONITOR.
[2018-12-02 20:00] VITALS: BP 139/70
--- NOTE | 2018-12-02 20:12 | NUR ---
PT AGITATING AND PULLED IV LINE OUT. GIVEN ATIVAN MD ORDERED. ADMINISTERED ZYPREXA AND HEPARIN MD ORDERED. WILL CONTINUE TO MONITOR.
--- NOTE | 2018-12-02 21:00 | NUR ---
2TIMES IV START ATTEMPTED BUT NOT SUCCESSFUL. CHARGE NURSETERESA STARTED IV ON LEFT HAND, 24G. GOOD BLOOD RETURN AND FLUSH NOTED. START FLUID ORDERED. PT TOLERATED WELL.
--- NOTE | 2018-12-02 23:50 | NUR ---
GIVEN ZOSYN MD ORDERED. PT TOLERATED WELL. WILL CONTINUE TO MONITOR.
[2018-12-03] VITALS: BP 136/64
--- NOTE | 2018-12-03 01:45 | NUR ---
PT AWAKE, LYING IN BED, TALKING BY HERSELF. WILL CONTINUE TO MONITOR.
[2018-12-03] MEDS: Z-GUARD PASTE TP SCH ×2 (01:57→12:02)
[2018-12-03] MEDS: LORazepam 2 MG/ML VIAL IM/IVP PRN ×4 (03:03→21:16)
--- NOTE | 2018-12-03 03:03 | NUR ---
PT AGITATING. GIVEN ATIVAN MD ORDERED. PT TOLERATED WELL.
[2018-12-03 04:00] VITALS: BP 120/55
[2018-12-03] MEDS: PIPERACILLIN/TAZOBACTAM 2.25 GM in DEXTROSE 5% 50 ML IV SCH ×4 (05:24→23:26)
[2018-12-03] MEDS: NACL 0.9% 1,000 ML IV SCH (05:24)
--- NOTE | 2018-12-03 05:24 | NUR ---
GIVEN ZOSYN AND NS FLUID MD ORDERED. PT TOLERATED WELL. WILL CONTINUE TO MONITOR.
--- NOTE | 2018-12-03 06:37 | NUR ---
PT SLEEPING IN BED. BREATHING EVEN AND UNLABORED. WILL CONTINUE TO MONITOR.
--- NOTE | 2018-12-03 07:20 | NUR ---
REPORT RECEIVED FROM PIPELINE CONSTRUCTION INSPECTOR NURSE, PT SLEEPING QUIETLY IN NAD, RESP EVEN UNLABORED, SKIN WARM DRY COLOR WNL, IVF INFUSING, SITE WNL, POC REVIEWED, NO NEEDS IDENTIFIED AT THIS TIME.
[2018-12-03 07:52] LABS: BASOPHILS # (AUTO) 0.1 K/uL (0.00-0.22); BASOPHILS % (AUTO) 0.6 % (0.0-2.0); EOSINOPHILS # (AUTO) 0.2 K/uL (0-0.4); EOSINOPHILS % (AUTO) 2.1 % (0.0-4.0); HEMATOCRIT 28.5 % (36-48); HEMOGLOBIN 9.5 g/dL (12.0-16.0); LYMPHOCYTES # (AUTO) 1.5 K/uL (2.5-16.5); LYMPHOCYTES % (AUTO) 13.3 % (20.5-51.1); MEAN CORPUSCULAR HEMOGLOBIN 29 pg (27-31); MEAN CORPUSCULAR HGB CONC 33 g/dL (33-37); MONOCYTES # (AUTO) 0.5 K/uL (0.8-1.0); MONOCYTES % (AUTO) 4.4 % (1.7-9.3); NEUTROPHILS # (AUTO) 8.9 K/uL (1.8-7.7); NEUTROPHILS % (AUTO) 79.6 % (42.2-75.2); PLATELET COUNT (AUTO) 321 K/uL (140-450); RED BLOOD CELL COUNT(AUTO) 3.32 MIL/uL (4.20-5.40); WHITE BLOOD COUNT (AUTO) 11.1 K/uL (4.8-10.8)
--- NOTE | 2018-12-03 07:54 | NUR ---
DR PAGE AND TEAM AT BEDSIDE.
[2018-12-03 08:00] VITALS: BP 140/65
--- NOTE | 2018-12-03 08:00 | NUR ---
SHIFT ASSESSMENT COMPLETED, PT AWAKE ORIENTED TO SELF, HER BIRTHDAY, TODAY'S DATE, SHE KNOWS TOMORROW IS HER BIRTHDAY, SHE THINKS SHE IS IN AN APARTMENT, SPEAKS WITH SLIGHT SLUR, LEFT HIP WITH 2 SURGICAL WOUND WELL APPROXIMATED WITH ISELA, NO REDNESS, DRAINAGE OR SWELLING NOTED, GOOD CMS OF DISTAL LEFT LOWER EXT, LEFT LOWER EXT SLIGHTLY EDEMATOUS, PT DANGLING HER RIGHT LEG OFF THE SIDE OF BED, WANTING TO GET UP TO TAKE A BATH, PT REORIENTED, RE POSITIONED, BILAT HEELS WITH INTACT BLISTERS, COVERED WITH FOAM DRESSING AND HEEL PROTECTORS. IVF INFUSING WELL, SITE WNL, SITE COVERED WITH KERLIX.
--- NOTE | 2018-12-03 08:12 | NUR ---
PT ASSISTED WITH BREAKFAST, PT ABLE TO USE HER RIGHT HAND TO FEED HERSELF WITH SOME ASSIST.
[2018-12-03] MEDS: HYDROcodone/APAP 7.5/325 MG 1 TAB PO PRN (08:19)
[2018-12-03] MEDS: OLANZapine 5 MG TAB PO SCH ×2 (08:19→20:42)
[2018-12-03] MEDS: LACTOBACILLUS RHAMNOSUS GG 1 EACH CAP PO SCH (08:19)
--- NOTE | 2018-12-03 08:56 | NUR ---
LARGE BM X1, PERICARE DONE, WOUNDS CLEANED, DRESSINGS CHANGED, PT SCREAMS AND WANTS TO STAND UP TO TAKE A BATH, PT EXPLAINED HER INJURIES AND BEDREST ORDERS, PT CONTINUES TO YELL AND DEMANDS TO GET UP, ATIVAN GIVEN PER PRN ORDER.
[2018-12-03] MEDS ORDERED: MIDODRINE 5 MG TAB PO PRN (09:06)
--- NOTE | 2018-12-03 09:57 | NUR ---
PT ON WOUND BED, MOVED TO 110A
[2018-12-03 10:01] LABS: SODIUM SERUM 141 mmol/L (136-145)
[2018-12-03 10:02] LABS: ANION GAP 11.7 (8-16); CARBON DIOXIDE 26.3 mmol/L (21-32); CHLORIDE 106 mmol/L (98-107); CREATININE 0.7 mg/dL (0.6-1.3); GLUCOSE 97 mg/dL (74-106); UREA NITROGEN, BLOOD 7 mg/dL (7-18)
[2018-12-03 10:04] LABS: MAGNESIUM 1.8 mg/dL (1.8-2.4); PHOSPHORUS 2.5 mg/dL (2.5-4.9)
--- NOTE | 2018-12-03 10:31 | NUR ---
DR ORTEGA AT BEDSIDE.
[2018-12-03] MEDS ORDERED: MAG SULF 2000 MG/WATER PREMIX 100 ML IV SCH (11:00)
[2018-12-03] MEDS ORDERED: POTASSIUM CHLORIDE 10 MEQ TABER PO SCH (11:00)
--- NOTE | 2018-12-03 11:22 | NUR ---
IV ANTIBIOTIC STARTED PER ORDER, IV SITE WNL, PT FER WELL.
[2018-12-03 12:00] VITALS: BP 98/58
--- NOTE | 2018-12-03 12:20 | NUR ---
PHOTOS OF WOUNDS TAKEN, HIP SURGICAL WOUND X2, BILAT HEELS, LEFT THIGH ABRASION, BUTTOCKS, LEFT GREAT TOE.
--- NOTE | 2018-12-03 12:50 | NUR ---
PT SITTING UP EATING LUNCH WITH ASSIST.
--- NOTE | 2018-12-03 13:55 | NUR ---
BMX1, PERICARE DONE, PT UNCOOPERATIVE, AGITATED, PT REORIENTED AND CONSOLED WITH DIFFICULTY. PT REMAINS WITH 1:1 SITTER.
--- NOTE | 2018-12-03 15:02 | NUR ---
PT AROUSED FROM SLEEP, STATES SHE IS DOING WELL, PT VERBALLY AGREES TO NOT TO PULL OUT IV LINES, AND NOT TO GET UP OUT OF BED. RESTRAINT REMOVED AT THIS TIME. PT REMAINS ON 1:1 WATCH, WILL CONTINUE TO [place].
--- NOTE | 2018-12-03 15:45 | NUR ---
PT VOIDED IN BED, PERICARE DONE.
[2018-12-03 16:00] VITALS: BP 105/58
--- NOTE | 2018-12-03 16:21 | NUR ---
PT SCOOTING TO THE SIDE OF BED TRYING TO GET OUT OF BED, KICKING THE BEDSIDE TABLE, ATTEMPTING TO PULL ON IV LINE, PT SCREAMING, PRN ATIVAN GIVEN.
--- NOTE | 2018-12-03 17:49 | NUR ---
PT VOIDED IN BED, PERICARE DONE, PT SITTING UP NOW FOR DINNER, PT REFUSES TO ACCEPT HELP FEEDING HER, SHE INSISTS ON FEEDING HERSELF DESPITE SPILLING
--- NOTE | 2018-12-03 18:30 | NUR ---
PT IN GOOD SPIRIT, TELLING JOKES, REMAINS WITH 1:1 SITTER AND ON RESTRAINTS, PT INTERMITTENTLY ATTEMPTED TO GET OUT OF BED, BECAME AGGRESSIVE WITH NURSES THOUGH OUT THE SHIFT WHEN BEING REPOSITIONED BACK IN BED. IV SITE WNL, PT DENIES PAIN AT THIS TIME, WILL CONTINUE TO MONITOR UNTIL CHANGE OF SHIFT.
--- NOTE | 2018-12-03 19:11 | NUR ---
REPORT GIVEN TO MEDICAL DATA ANALYST NURSE, PT IN STABLE CONDITION.
--- NOTE | 2018-12-03 19:12 | NUR ---
Received endorsement from AM shift RN; patient resting comfortably in bed. Introduced self, updated board. No SOB or distress noted, on room air. IV site on left hand, 22 gauge, running IVF at 10mL/hr. Patient noted with soft wrist restraints, to be renewed at 0100 12/04/2018. Bed in the lowest position, call light within reach. Initial assessment done. Will continue to monitor.
[2018-12-03 20:00] VITALS: BP 145/61
--- NOTE | 2018-12-03 20:15 | NUR ---
Vitals taken, no SOB or distress noted.
--- NOTE | 2018-12-03 21:40 | NUR ---
Due meds given, tolerated well.
[2018-12-03] MEDS ORDERED: MELATONIN 3 MG TAB PO PRN (23:15)
--- NOTE | 2018-12-03 23:30 | NUR ---
Vitals taken, no distress noted.
[2018-12-04] VITALS: BP 132/66
[2018-12-04] MEDS: Z-GUARD PASTE TP SCH ×2 (00:15→12:38)
[2018-12-04] MEDS: LORazepam 2 MG/ML VIAL IM/IVP PRN (01:15)
--- NOTE | 2018-12-04 02:30 | NUR ---
Checks made; patient asleep, but has moments of lucidity and tries to get out of bed.
[2018-12-04 04:00] VITALS: BP 106/72
--- NOTE | 2018-12-04 04:30 | NUR ---
Vitals taken, no distress noted.
[2018-12-04] MEDS: PIPERACILLIN/TAZOBACTAM 2.25 GM in DEXTROSE 5% 50 ML IV SCH ×3 (05:00→17:34)
--- NOTE | 2018-12-04 06:00 | NUR ---
Vitals stable, due meds given. Will endorse to AM shift RN for continuity of care.
--- NOTE | 2018-12-04 07:05 | NUR ---
RECEIVED BEDSIDE REPORT FROM SEMICONDUCTOR PACKAGES SEALER NURSE. PATIENT IS SLEEPING, NO SIGNS OF DISTRESS, ROOM AIR, SKIN HAS INCONTINENCE DERMATITIS, S/P L ORIF, CLEAN,DRY AND INTACT WITH ISELA, BILATERAL HEEL WOUNDS, HEEL PROTECTERS ON PATIENT,BEDREST, FALL PROTOCOL IN PLACE, L HAND 24 G NS 10ML/HR, CLEAN, DRY AND INTACT, TELE MONITOR IN PLACE, BILATERAL WRIST RESTRAINTS ON PATIENT DUE TO REMOVAL OF EQUIPMENT AND ATTEMPTING TO GET OUT OF BED, S/P ORIF, AND HX OF FALLS, 1:1 SITTER AT BEDSIDE, WILL CONTINUE TO MONITOR
[2018-12-04 07:17] LABS: ANION GAP 10.5 (8-16); CARBON DIOXIDE 27.3 mmol/L (21-32); CHLORIDE 106 mmol/L (98-107); CREATININE 0.7 mg/dL (0.6-1.3); GLUCOSE 92 mg/dL (74-106); POTASSIUM 3.8 mmol/L (3.5-5.1); SODIUM SERUM 140 mmol/L (136-145); UREA NITROGEN, BLOOD 9 mg/dL (7-18)
[2018-12-04 07:24] LABS: PHOSPHORUS 3.6 mg/dL (2.5-4.9)
[2018-12-04 08:00] VITALS: BP 97/42
[2018-12-04 09:16] LABS: BASOPHILS # (AUTO) 0.1 K/uL (0.00-0.22); EOSINOPHILS # (AUTO) 0.3 K/uL (0-0.4); EOSINOPHILS % (AUTO) 4.1 % (0.0-4.0); HEMATOCRIT 26.3 % (36-48); HEMOGLOBIN 8.8 g/dL (12.0-16.0); LYMPHOCYTES # (AUTO) 1.2 K/uL (2.5-16.5); LYMPHOCYTES % (AUTO) 16.6 % (20.5-51.1); MEAN CORPUSCULAR HEMOGLOBIN 29 pg (27-31); MEAN CORPUSCULAR HGB CONC 33 g/dL (33-37); MEAN CORPUSCULAR VOLUME 86.9 fL (80-94); MONOCYTES # (AUTO) 0.4 K/uL (0.8-1.0); MONOCYTES % (AUTO) 6.3 % (1.7-9.3); NEUTROPHILS # (AUTO) 5.1 K/uL (1.8-7.7); PLATELET COUNT (AUTO) 356 K/uL (140-450); RED BLOOD CELL COUNT(AUTO) 3.03 MIL/uL (4.20-5.40); RED CELL DISTRIBUTION WIDTH 15.9 % (11.6-13.7); WHITE BLOOD COUNT (AUTO) 7.1 K/uL (4.8-10.8)
[2018-12-04] MEDS: OLANZapine 5 MG TAB PO SCH ×2 (09:36→20:14)
[2018-12-04] MEDS: LACTOBACILLUS RHAMNOSUS GG 1 EACH CAP PO SCH (09:36)
--- NOTE | 2018-12-04 09:44 | NUR ---
ADMINISTERED MEDICATIONS, EDUCATED ON SIDE EFFECTS, PATIENT TOLERATED MEDS WELL, WILL CONTINUE TO MONITOR, ONE ON ONE SITTER AT BEDSIDE.
--- NOTE | 2018-12-04 10:30 | NUR ---
SPOKE WITH LURDES ZULETA FROM PT'S [employer] [phone] FAXED ALL THE INQUIRY TO [phone] DISCUSSED PATIENT CONDITION , THAT SHE NEEDS LONGTERM CARE AFTER THE THERAPY BECAUSE OF FREQUENT ADMISSION TO THE HOSPITAL, UNABLE TO TAKE CARE OF HERSELF ,NOT TAKING HER MEDICATION ORDERED. PER SONG SHE CAN NOT SEND HER FOR LONGTERM CARE , BEFORE SHE SEND HER TO SNF PT HAS TO HAVE A HOME TO RETURN BACK. CALLED PT'S SISTER STEVE AND DISCUSSED THE SITUATION , PER STEVE SHE CAN ACCEPT HER SISTER AFTER THE REHAB HOWEVER SHE NEEDED HELP TO PLACE HER WITH PERMEANT RESIDENT. CALLED BACK SONG AND NOTIFIED HER THAT SISTER WILL TAKE HER UNTIL SHE GETS A PERMEANT RESIDENT. SONG CHATMAN WILL CONTACT SISTER AND CALL BACK
--- NOTE | 2018-12-04 10:58 | NUR ---
PATIENT ATTEMPTED TO WALK WITH PT, PATIENT NOW SLEEPING, CALL LIGHT WITHIN REACH, 1:1 SITTER AT BEDSIDE
[2018-12-04 12:00] VITALS: BP 88/36
--- NOTE | 2018-12-04 12:38 | NUR ---
ADMINISTERED SCHEDULED MEDS, EDUCATED PATIENT ON SIDE EFFECTS, IV ON L HAND 24G INFILTRATED, REMOVED, IV TIP INTACT. NEW IV TO R AC 22G AND CHANGED IV TUBING, PATIENT TOLERATED WELL, WILL CONTINUE TO MONITOR.
--- NOTE | 2018-12-04 14:08 | NUR ---
PATIENT IS SLEEPING,, CALL LIGHT WITHIN REACH, 1:1 SITTER AT BEDSIDE, WILL CONTINUE TO MONITOR.
--- NOTE | 2018-12-04 14:30 | NUR ---
CALLED SONG CHATMAN FROM INSURANCE [phone] PER SONG SHE HASN'T RECEIVED THE FAX ,I CONFIRMED HER WAS FAXED 3 HRS AGO SHE STATED STILL DIDN'T RECEIVED IT WILL CALL BACK WHEN SHE RECEIVED IT.
[2018-12-04 16:00] VITALS: BP 108/77
--- NOTE | 2018-12-04 16:01 | NUR ---
STILL WAITING FROM LURDES ZULETA FOR A SNF PLACEMENT
--- NOTE | 2018-12-04 16:10 | NUR ---
PATIENT IN NO DISTRESS. WILL CONTINUE TO MONITOR
--- NOTE | 2018-12-04 17:20 | NUR ---
INFILTRATED IV, REMOVED IV R AC, TIP INTACT, NEW IV PLACED IN L AC 24 G
--- NOTE | 2018-12-04 17:42 | NUR ---
ADMINISTERED MEDICATION, EDUCATED ON SIDE EFFECTS, PATIENT TOLERATED WELL, WILL CONTINUE TO MONITOR.
--- NOTE | 2018-12-04 19:18 | NUR ---
GAVE BEDSIDE REPORT TO GROUP FITNESS ASSISTANT DEPARTMENT HEAD NURSE. PATIENT ENDORSED IN STABLE CONDITION
--- NOTE | 2018-12-04 19:19 | NUR ---
RECEIVED BEDSIDE REPORT FROM DAY RN. PATIENT IS SLEEPING, NO SIGNS OF DISTRESS, ROOM AIR, SKIN HAS INCONTINENCE DERMATITIS, S/P L ORIF, CLEAN,DRY AND INTACT WITH ISELA, BILATERAL HEEL WOUNDS, HEEL PROTECTERS ON PATIENT,BEDREST, FALL PROTOCOL IN PLACE, L AC 24 G NS 10ML/HR, CLEAN, DRY AND INTACT, TELE MONITOR IN PLACE, BILATERAL WRIST RESTRAINTS ON PATIENT DUE TO REMOVAL OF EQUIPMENT AND ATTEMPTING TO GET OUT OF BED, S/P ORIF, AND HX OF FALLS, 1:1 SITTER AT BEDSIDE, WILL CONTINUE TO MONITOR
[2018-12-04 20:00] VITALS: BP 98/53
--- NOTE | 2018-12-04 20:14 | NUR ---
ADMINISTERED CHINO MEDICATIONS WITH APPLESAUCE. PT TOLERATED WELL. VITAL SIGNS ARE WITHIN NORMAL LIMITS. ALL SAFETY MEASURES ARE IN PLACE. 1:1 SITTER. WILL CONTINUE TO ROUND.
--- NOTE | 2018-12-04 22:10 | NUR ---
PATIENT IS SLEEPING COMFORTABLY IN BED. CHEST RISE AND FALL. 1:1 SITTER. WILL CONTINUE TO ROUND.
--- NOTE | 2018-12-05 00:20 | NUR ---
PAGED DR MCCORMACK REGARDING LOW B/P: 84/41 HR 86. NEW ORDER TO ADMINISTER PROAMATINE 5MG PO ONCE.
[2018-12-05 00:25] VITALS: BP 84/41
[2018-12-05] MEDS: Z-GUARD PASTE TP SCH ×2 (00:27→13:39)
[2018-12-05] MEDS ORDERED: MIDODRINE 5 MG TAB PO SCH (00:30)
--- NOTE | 2018-12-05 01:35 | NUR ---
B/P 85/[address] MCCORMACK MADE AWARE. ORDER RECEIVED TO INCREASE FLUIDS TO 100ML/H
--- NOTE | 2018-12-05 02:29 | NUR ---
PATIENT IS SLEEPING COMFORTABLY IN BED. CHEST RISE AND FALL. HOB ELEVATED. SAFETY MEASURES ARE IN PLACE. 1:1 SITTER. WILL CONTINUE TO MONITOR.
[2018-12-05] MEDS: NACL 0.9% 1,000 ML IV SCH ×2 (03:46→13:40)
[2018-12-05 04:00] VITALS: BP 94/40
--- NOTE | 2018-12-05 04:12 | NUR ---
BP IS IMPROVING 94/40 HR 84. SAFETY MEASURES ARE IN PLACE. 1:1 SITTER. WILL CONTINUE TO MONITOR.
--- NOTE | 2018-12-05 05:00 | NUR ---
PT WAS CLEANED AND REPOSITION FOR COMFORT. ALL SAFETY MEASURES ARE IN PLACE. 1:1 SITTER
[2018-12-05 06:47] LABS: HEMATOCRIT 25.5 % (36-48); HEMOGLOBIN 8.5 g/dL (12.0-16.0); MEAN CORPUSCULAR HEMOGLOBIN 29 pg (27-31); MEAN CORPUSCULAR HGB CONC 33 g/dL (33-37); MEAN CORPUSCULAR VOLUME 86.4 fL (80-94); PLATELET COUNT (AUTO) 354 K/uL (140-450); RED BLOOD CELL COUNT(AUTO) 2.96 MIL/uL (4.20-5.40); RED CELL DISTRIBUTION WIDTH 16.4 % (11.6-13.7); WHITE BLOOD COUNT (AUTO) 7.2 K/uL (4.8-10.8)
--- NOTE | 2018-12-05 07:23 | NUR ---
GAVE BEDSIDE REPORT TO DAY RN. PT ENDORSED IN STABLE CONDITION.
--- NOTE | 2018-12-05 07:25 | NUR ---
RECEIVED BEDSIDE REPORT FROM PRODUCTION BORING MACHINE OPERATOR NURSE FOR CONTINUITY OF CARE. PATIENT IS RESTING ON BED. AROUSABLE TO VOICE. PATIENT IS AAOX2 TO NAME AND PLACE. WHEN ASSESS PATIENT FOR NEURO, PATIENT REPLIED " ORANGE JUICE AND 2014." RESPIRATION EVEN AND UNLABORED ON RA. ASKED IF PATIENT HAS ANY PAIN, PATIENT SAID " NO, NO PAIN." NO SIGNS OF DISTRESS NOTED. IV ON LAC 20, CLEAN AND INTACT, INFUSING PER MD ORDER. PRESSURES ULCER ON BILATERAL HEELS NOTED, HEEL PROTECTORS IN PLACE. INCONTINENT DERMATITIS NOTED AND COVER WITH Z-GUARD. BILATERAL SOFT WRIST RESTRAINTS IN PLACE, ASSESS FOR INJURY AND BLOOD CIRCULATION, NO SIGNS OF INJURY. PATIENT IS INCONTINENT AND FALL RISK. FALL RISK PROTOCOL IN BED. TELE MONITOR ATTACHED. SAFETY MEASURES IN PLACE. BED IN LOW POSITION AND CALL LIGHT WITHIN REACH. WOUND BED ACTIVATED AND BED ALARM ACTIVATED. SITTER AT BEDSIDE.
[2018-12-05 08:00] VITALS: BP 101/41
--- NOTE | 2018-12-05 08:00 | NUR ---
REMOVED BILATERAL RESTRAINTS AND ASSESSED FOR ANY INJURY AND BLOOD CIRCULATION. PATIENT IS FREE FROM INJURY. PATIENT IS RESTING ON BED AT THIS TIME. 1:1 SITTER BY BEDSIDE. NO SIGNS OF DISTRESS NOTED. SAFETY MEASURES IN PLACE. BED IN LOW POSITION AND CALL LIGHT WITHIN REACH. BED ALARM ACTIVATED.
[2018-12-05 08:08] LABS: ALBUMIN 1.5 g/dL (3.4-5.0); ANION GAP 10.4 (8-16); ASPARTATE AMINOTRANSFERASE 53 U/L (15-37); CARBON DIOXIDE 25.5 mmol/L (21-32); CHLORIDE 107 mmol/L (98-107); CREATININE 0.7 mg/dL (0.6-1.3); GLUCOSE 85 mg/dL (74-106); PHOSPHORUS 3.4 mg/dL (2.5-4.9); POTASSIUM 3.9 mmol/L (3.5-5.1); SODIUM SERUM 139 mmol/L (136-145); TOTAL BILIRUBIN 0.5 mg/dL (0.0-1.0); UREA NITROGEN, BLOOD 18 mg/dL (7-18)
[2018-12-05 09:15] LABS: EOSINOPHILS % (MANUAL) 4 % (0-4); MONOCYTES % (MANUAL) 8 % (5-12)
[2018-12-05 09:17] LABS: LYMPHOCYTES % (MANUAL) 23 % (20-46)
[2018-12-05] MEDS: OLANZapine 5 MG TAB PO SCH ×2 (09:45→21:47)
[2018-12-05] MEDS: LACTOBACILLUS RHAMNOSUS GG 1 EACH CAP PO SCH (09:45)
--- NOTE | 2018-12-05 09:53 | NUR ---
ADMINISTERED MEDS PER MD ORDER, PATIENT TOLERATED WELL. MEDS EDUCATION PROVIDED TO PATIENT AND REINFORCEMENT NEEDED. PATIENT WAS ABLE TO VERIFY HER NAME AND BIRTHDAY CORRECTLY. PATIENT IS RESTING ON BED AT THIS TIME. NO SIGNS OF DISTRESS NOTED. SAFETY MEASURES IN PLACE. BED IN LOW POSITION AND CALL LIGHT WITHIN REACH. BED ALARM ACTIVATED AND 1:1 SITTER BY BEDSIDE.
--- NOTE | 2018-12-05 11:19 | NUR ---
PATIENT IS RESTING ON BED. AROUSABLE TO VOICE. RESPIRATION EVEN AND UNLABORED ON RA. MOOD IS CALM AND COOPERATIVE. NO SIGNS OF DISTRESS NOTED. SAFETY MEASURES IN PLACE. BED IN LOW POSITION AND CALL LIGHT WITHIN REACH. INSTRUCTED PATIENT TO USE THE CALL LIGHT FOR ANY ASSISTANCE AND PATIENT WAS AWARE. 1:1 SITTER BY BEDSIDE.
--- NOTE | 2018-12-05 13:34 | NUR ---
PERFORMED WOUNDS ASSESSMENT AND DRESSINGS CHANGED. CLEANSED LEFT BUTTOCK WITH NS AND PAT DRY, APPLY Z GUARD AND COVER WITH OPTIFOAM. CLEANSED RIGHT HEEL BLISTER AND RIGHT BUTTOCK, THEN APPLIED OPTIFOAM. USED HEEL PROTECTOR TO PROTECT RIGHT HEEL. OFF LOAD PRESSURES WITH PILLOWS AND ACTIVATED WOUND BED. WOUND CARE EDUCATION PROVIDED AND REINFORCEMENT NEEDED, PATIENT STATED " WHAT ARE YOU DOING TO ME? STOP TURNING ME HERE AND THERE." SAFETY MEASURES IN PLACE. BED IN LOW POSITION AND CALL LIGHT WITHIN REACH. WOUND BED ACTIVATED AND BED ALARM ACTIVATED. 1:1 SITTER BY BEDSIDE.
--- NOTE | 2018-12-05 15:19 | NUR ---
ASSISTED STUDY LEAD TO REPOSITION AND CLEAN PATIENT. PATIENT TOLERATED WELL. PATIENT AWAKE AND RESTING ON BED AT THIS TIME. PATIENT IS CALM AND COOPERATIVE. NO SIGNS OF DISTRESS NOTED. SAFETY MEASURES IN PLACE. BED IN LOW POSITION AND CALL LIGHT WITHIN REACH. WOUND BED ACTIVATED AND BED ALARM ACTIVATED. SITTER 1:1 BY BEDSIDE.
--- NOTE | 2018-12-05 15:20 | NUR ---
Substation Operator Automatic Note: Per Living Coach Sissy from [facility] , she will not be able to find an accepting snf for patient if patient has a sitter. She stated custodial facilities require for patient not to have a sitter for at least 24 hours. Sissy told me she will continue to work on short term custodial facility placement once sitter is discontinued, Living Coach Adelina made aware.
--- NOTE | 2018-12-05 15:22 | NUR ---
PATIENT AWAKE AND SITTING QUIETLY. MOOD IS CALM AND COOPERATIVE. NO SIGNS OF DISTRESS NOTED. SITTER DISCONTINUED AT THIS TIME. SAFETY MEASURES IN PLACE. BED IN LOW POSITION AND CALL LIGHT WITHIN REACH. INSTRUCTED PATIENT TO USE THE CALL LIGHT FOR ANY ASSISTANCE AND PATIENT WAS AWARE.
--- NOTE | 2018-12-05 15:40 | NUR ---
12/05/18 RD FOLLOW UP COMPLETED PLEASE REFER TO NUTRITION ASSESSMENT UNDER CARE ACTIVITY FOR ESTIMATED NUTRITIONAL NEEDS. 1. CONTINUE MECHANICAL SOFT NA2GM DIET WITH ENSURE BID TOLERATED 2. RECOMMENDED VITAMIN C 500 MG BID FOR MULTIPLE PRESSURE ULCERS 3. RD TO FOLLOW-UP 3-5 DAYS, MODERATE RISK ALLEN VILLEDA, RD
[2018-12-05 16:00] VITALS: BP 109/43
--- NOTE | 2018-12-05 17:12 | NUR ---
PATIENT AWAKE AND WATCHING TV ON BED. MOOD CALM AND COOPERATIVE. DENIED PAIN. NO SIGNS OF DISTRESS NOTED. SAFETY MEASURES IN PLACE. BED IN LOW POSITION AND CALL LIGHT WITHIN REACH. BED ALARM ACTIVATED. INSTRUCTED AND DEMONSTRATED TO PATIENT ON USING THE CALL LIGHT FOR ANY ASSISTANCE AND PATIENT WAS ABLE TO RETURN DEMONSTRATION AND VERBALIZED OK.
--- NOTE | 2018-12-05 18:28 | NUR ---
PATIENT IS WATCHING TV AND RESTING QUIETLY ON BED AT THIS TIME. MOOD CALM AND COOPERATIVE. DENIED PAIN. NO SIGNS OF DISTRESS NOTED. SAFETY MEASURES IN PLACE. BED IN LOW POSITION AND CALL LIGHT WITHIN REACH. BED ALARM AND WOUND BED ACTIVATED. INSTRUCTED PATIENT TO USE THE CALL LIGHT FOR ANY ASSISTANCE AND PATIENT SAID OK.
--- NOTE | 2018-12-05 19:15 | NUR ---
PT AT BED EYES CLOSED BREATHING REGULARLY, ON ROOM AIR, A&0 X2, PERRL 3MM, BRISK, HEART RATE REGULAR S1S2 PRESENT, CAP REFILL <3S, LUNG SOUNDS CLEAR THROUGHOUT, ABDOMEN SOFT, ROUND, NONDISTENDED, NONTENDER, PT HAS GENERALIZED WEAKNESS, SKIN WARM, DRY, APPROPRIATE FOR ETHNICITY, SKIN NON INTACT, LEFT HIP HAS OPTIFOAM DRESSING IN PLACE, DRY AND INTACT, LEFT LEG DRESSING IN PLACE, DRY AND INTACT, LEFT FOOT BLISTER, DRESSING IN PLACE, LEFT AC [address] RUNNING NS AT 100 ML/HR. Addendum: 12/05/18 at 2003 by Gonzalo Mcgrath RN PULSES 2+ BILATERAL UPPER AND LOWER EXTREMITIES, HOB 30 DEGREES, SIDE RAILS UP X2, BED AT LOWEST POSITION, BED ALARM IN PLACE. Addendum: 12/05/18 at 2020 by Gonzalo Mcgrath RN BILATERAL HEEL PROTECTORS IN PLACE.
--- NOTE | 2018-12-05 19:15 | NUR ---
ENDORSED PATIENT AT BEDSIDE TO HOME SERVICE TECHNICIAN NURSE FOR CONTINUITY OF CARE. PATIENT AWAKE AND WATCHING TV QUIETLY ON BED AT THIS TIME. NO SIGNS OF DISTRESS NOTED. PATIENT IS IN STABLE CONDITION. SAFETY MEASURES IN PLACE. BED IN LOW POSITION AND CALL LIGHT WITHIN REACH. BED ALARM ACTIVATED. INSTRUCTED PATIENT TO USE THE CALL LIGHT FOR ANY ASSISTANCE AND PATIENT SAID OK.
--- NOTE | 2018-12-05 21:40 | NUR ---
MEDICATIONS GIVEN. TURNED AND CLEANED PATIENT. PT TOLERATED PROCEDURE WELL. PT AT BED EYES CLOSED, BREATHING REGULARLY. SIDE RAILS UP X2, BED AT LOWEST POSITION, HOB 30 DEGREES. WILL CONTINUE TO MONITOR.
--- NOTE | 2018-12-06 00:17 | NUR ---
PT AT BED EYES CLOSED, BREATHING REGULARLY, SIDE RAILS UP X2, HOB 30 DEGREES, BED AT LOWEST POSITION.
[2018-12-06] MEDS: NACL 0.9% 1,000 ML IV SCH ×3 (00:18→20:00)
[2018-12-06] MEDS: Z-GUARD PASTE TP SCH ×2 (00:19→13:42)
[2018-12-06 01:19] VITALS: BP 113/54
--- NOTE | 2018-12-06 02:21 | NUR ---
PT AT BED EYES CLOSED, BREATHING REGULARLY, SIDE RAILS UP X2, HOB 30 DEGREES, BED AT LOWEST POSITION.
--- NOTE | 2018-12-06 04:57 | NUR ---
AM CARE PERFORMED. PT TOLERATED WELL. HOB 30 DEGREES, SIDE RAILS UP X2, BED AT LOWEST POSITION.
--- NOTE | 2018-12-06 07:16 | NUR ---
CHANGE OF SHIFT REPORT GIVEN TO AM NURSE. PT AT STABLE CONDITION AT THIS TIME.
--- NOTE | 2018-12-06 07:18 | NUR ---
RECEIVED BEDSIDE REPORT FROM AUTOMOBILE OR TRUCK RENTAL DISPATCHER NURSE FOR CONTINUITY OF CARE. PATIENT IS RESTING ON BED AT THIS TIME. AROUSABLE TO VOICE. PATIENT IS AOX3 TO NAME, PLACE, AND TIME, AND PATIENT SAID " I LOST TRACK OF THE DATE." INFORMED PATIENT THAT TODAY IS 12/06/18Monday AND PATIENT SAID, " OK, NOW I KNOW." PATIENT IS CALM AND COOPERATIVE AND FOLLOW COMMAND. RESPIRATION EVEN AND UNLABORED ON RA. DENIED PAIN, NAUSEA AND VOMITING. NO SIGNS OF DISTRESS NOTED. IV CLEAN AND DRY, INFUSING PER MD ORDER. PATIENT IS BEDREST DUE TO WEAKNESS AND INCONTINENT. WOUNDS NOTED, COVER WITH DRESSING, CLEAN AN DRY. SAFETY MEASURES IN PLACE. BED IN LOW POSITION AND CALL LIGHT WITHIN REACH. BED ALARM ACTIVATED. DEMONSTRATED TO PATIENT HOW TO PRESS THE CALL LIGHT FOR ASSISTANCE AND INSTRUCTED PATIENT TO USE THE CALL LIGHT FOR ANY ASSISTANCE AND PATIENT VERBALIZED UNDERSTANDING.
[2018-12-06 08:00] VITALS: BP 111/49
--- NOTE | 2018-12-06 08:13 | NUR ---
CONTACTED SONG CHATMAN AT [phone], SHE STATED THAT SHE HAVE NOT FIND ANY PLACEMENT AT THIS TIME. WHEN ASKED IF SHE CAN SEND US THE LIST OF CONTRACTED FACILITIES SO WE CAN HELP OUT. SHE STATED THAT "THERE IS NOTHING MUCH YOU CAN DO, BECAUSE I HAVE BEEN CONTACTING ALL THE FACILITIES." LURDES WILL FOLLOW UP.
[2018-12-06] MEDS: LACTOBACILLUS RHAMNOSUS GG 1 EACH CAP PO SCH (09:08)
[2018-12-06] MEDS: OLANZapine 5 MG TAB PO SCH ×2 (09:09→21:52)
--- NOTE | 2018-12-06 09:12 | NUR ---
ADMINISTERED MEDS PER MD ORDER, PATIENT TOLERATED WELL. EDUCATED PATIENT ON MEDS AND SIDE EFFECTS AND PATIENT SAID OK. PATIENT HAS ONE BM AND CONFECTIONERY COOKER IS CLEANING AND CHANGING PATIENT AT THIS TIME. NO SIGNS OF DISTRESS AT THIS TIME. SAFETY MEASURES IN PLACE. BED IN LOW POSITION AND CALL LIGHT WITHIN REACH.
--- NOTE | 2018-12-06 10:15 | NUR ---
PATIENT IS SITTING UP ON CHAIR BY BEDSIDE. PHYSICAL THERAPY IS WORKING WITH PATIENT. PATIENT TOLERATED WELL. NO SIGNS OF DISTRESS NOTED. SAFETY MEASURES IN PLACE.
--- NOTE | 2018-12-06 11:29 | NUR ---
PATIENT IS RESTING ON BED AT THIS TIME. MOOD IS QUIET AND CALM. NO SIGNS OF DISTRESS NOTED. BED IN LOW POSITION AND CALL LIGHT WITHIN REACH. BED ALARM ACTIVATED. INSTRUCTED PATIENT TO USE THE CALL LIGHT FOR ANY ASSISTANCE OR QUESTION, PATIENT SAID OK.
--- NOTE | 2018-12-06 13:42 | NUR ---
PERFORMED WOUNDS ASSESSMENT AND DRESSINGS CHANGED. CLEANSED LEFT BUTTOCK WITH NS AND PAT DRY, APPLY Z GUARD AND COVER WITH OPTIFOAM. CLEANSED RIGHT HEEL BLISTER AND RIGHT BUTTOCK, THEN APPLIED OPTIFOAM. USED HEEL PROTECTOR TO PROTECT RIGHT HEEL. OFF LOAD PRESSURES WITH PILLOWS. PATIENT TOLERATED WELL. WOUND CARE EDUCATION PROVIDED AND REINFORCEMENT NEEDED. SAFETY MEASURES IN PLACE. BED IN LOW POSITION AND CALL LIGHT WITHIN REACH. BED ALARM ACTIVATED. INSTRUCTED PATIENT TO USE THE CALL LIGHT FOR ANY ASSISTANCE AND PATIENT WAS AWARE.
--- NOTE | 2018-12-06 15:27 | NUR ---
PATIENT AWAKE AND RESTING ON BED AT THIS TIME. DENIED PAIN. MOOD CALM AND COOPERATIVE. NO SIGNS OF DISTRESS NOTED. SAFETY MEASURES IN PLACE. BED IN LOW POSITION AND CALL LIGHT WITHIN REACH. BED ALARM ACTIVATED. INSTRUCTED PATIENT TO USE THE CALL LIGHT FOR ANY ASSISTANCE AND PATIENT WAS AWARE.
[2018-12-06 16:00] VITALS: BP 109/52
--- NOTE | 2018-12-06 17:25 | NUR ---
PATIENT IS RESTING ON BED QUIETLY. DENIED PAIN, NAUSEA AND VOMITING. NO SIGNS OF DISTRESS NOTED. SAFETY MEASURES IN PLACE. BED IN LOW POSITION AND CALL LIGHT WITHIN REACH. BED ALARM ACTIVATED. INSTRUCTED PATIENT TO USE THE CALL LIGHT FOR ANY ASSISTANCE AND PATIENT SAID OK.
--- NOTE | 2018-12-06 18:15 | NUR ---
PATIENT AWAKE AND WATCHING TV AT THIS TIME. MOOD CALM AND COOPERATIVE. NO SIGNS OF DISTRESS NOTED. SAFETY MEASURES IN PLACE. BED IN LOW POSITION AND CALL LIGHT WITHIN REACH. BED ALARM ACTIVATED.
--- NOTE | 2018-12-06 19:20 | NUR ---
ENDORSED PATIENT AT BEDSIDE TO EXTERNAL RELATIONS MANAGER NURSE FOR CONTINUITY OF CARE. PATIENT AWAKE AND RESTING ON BED AT THIS TIME. NO SIGNS OF DISTRESS NOTED. PATIENT IS IN STABLE CONDITION. BED IN LOW POSITION AND CALL LIGHT WITHIN REACH. BED ALARM ACTIVATED.
--- NOTE | 2018-12-06 19:21 | NUR ---
RECD. RESTING IN BED, AWAKE, A/OX2, RESPIRATION EVEN AND UNLABORED. IV OF NS AT 100 ML/HR INFUSING, RIGHT AC G 24. REORIENTED TO HOSPITAL SETTING. SAFETY MEASURES ENFORCED. PLAN OF CARE DISCUSSED WITH PATIENT, NEEDS REINFORCEMENT. DENIES PAIN 0/10. Pulmonary
--- NOTE | 2018-12-06 19:30 | NUR ---
Patient's Plan of Care was discussed and reviewed with RESEARCH NEUROPSYCHOLOGIST: IRAM
--- NOTE | 2018-12-06 20:00 | NUR ---
CHECKED PATIENT, SLEEPING WITH BLANKET COVERING HEAD AND BODY. PATIENT IS SWEATING A LOT. CHANGED GOWN AND MADE COMFORTABLE IN BED.
--- NOTE | 2018-12-06 20:30 | NUR ---
IV OUT, DISCONNECT FROM IV MACHINE. INFORMED WILL INSERT NEW IV LINE, BUT PATIENT REFUSED. EXPLAINED THE IMPORTANCE OF HAVING IV LINE, BUT STILL REFUSED.
--- NOTE | 2018-12-07 | NUR ---
RESTING IN BED, STILL AWAKE. NO DISTRESS NOTED.
[2018-12-07 01:19] VITALS: BP 108/55
--- NOTE | 2018-12-07 01:30 | NUR ---
TRYING TO GET OUT OF BED TO GO TO THE CHAIR, EXPLAINED SHE HAD SURGERY AT THE LEFT HIP AND NOT ADVISABLE TO WALK BY HERSELF, NEEDS PT FOR GAIT TRAINING. NEEDS REINFORCEMENT.
[2018-12-07] MEDS: Z-GUARD PASTE TP SCH ×3 (01:42→23:30)
--- NOTE | 2018-12-07 04:00 | NUR ---
AWAKE IN BED, STILL REFUSING NEW IV LINE INSERTION. DR. EASTON RAY.
[2018-12-07] MEDS: NACL 0.9% 1,000 ML IV SCH ×2 (06:00→16:00)
--- NOTE | 2018-12-07 06:30 | NUR ---
RESTING COMFORTABLY IN BED, RESPIRATION EVEN AND UNLABORED. SAFETY MAINTAINED DURING SHIFT.
--- NOTE | 2018-12-07 07:15 | NUR ---
ENDORSED TO RAJAT MARTIN FOR CONTINUITY OF CARE.
--- NOTE | 2018-12-07 07:18 | NUR ---
RECEIVED REPORT FROM DIESEL LOCOMOTIVE CRANE OPERATOR NURSE. AAOX2 TO PERSON AND PLACE, WILL NEED FREQUENT REMINDERS AND REORIENTATION TO ROOM AND EQUIPMENT. VSS, NO C/O PAIN AT THIS TIME. PT SAYS "NO" WHEN ASKED TO START A NEW IV LINE, EXPLAINED RISKS AND BENEFITS BUT STILL REFUSES. RESPIRATIONS EVEN AND UNLABORED ON RA. BS ACTIVE, SOFT ABD. REVIEWED POC WITH PT, PT VERBALIZED UNDERSTANDING.
[2018-12-07 08:00] VITALS: BP 98/60
[2018-12-07] MEDS: LACTOBACILLUS RHAMNOSUS GG 1 EACH CAP PO SCH (09:13)
[2018-12-07] MEDS: OLANZapine 5 MG TAB PO SCH ×2 (09:13→22:05)
--- NOTE | 2018-12-07 09:13 | NUR ---
PT GIVEN MORNING MEDICATIONS AT THIS TIME, PT IS AWARE OF INDICATIONS AND POTENTIAL SIDE EFFECTS. NO C/O PAIN AT THIS TIME.
--- NOTE | 2018-12-07 11:06 | NUR ---
WOUND CARE RE-EVALUATION NOTE: PT IS ALERT AND AWARE OF MULTIPLE SKIN PROBLEMS BUT UNABLE TO COMPREHENSIVE THE INTERVENTIONS WITH NON-COMPLIANCES AT TIMES SUCH SCRATCH WOUND SITES,NOT ABLE TO KEEP BILATERAL HEELS OFFLOADING AND NOT TO KEEP HEEL RAISERS IN PLACE. INTEGUMENTARY: -SURGICAL WOUND TO LEFT HIP 3 SITES WITH MULTIPLE ISELA IN PLACE, DRY AND CLEAN NO S/S OF INFECTION, NO S/S OF WOUND DEHISCENCE -SKIN TEAR TO LEFT LATER LOWER THIGH 5X1.2CM WITH SUPERFICIAL DEPTH, WOUND BED IS PINK MOIST, NO ODOR , PERIWOUND SKIN INTACT -PRESSURE ULCER STAGE 2 TO RIGHT HEEL 4X4CM INTACT BLISTER -PRESSURE ULCER STAGE 2 TO LEFT HEEL 4X3.5CM INTACT BLISTER -LEFT BUTTOCK PRESSURE ULCER STAGE 2 WITH 2X2CM SUPERFICIAL DEPTH WOUND BED 100% PINK, CLEAN DRY, NO ODOR,WOUND EDGE FLAT, NICKY WOUND SKIN INTACT WITH SURROUNDING LIGHT PURPLE COLOR EXTENDED TO RIGHT BUTTOCK INDICATED FURTHER DAMAGE - RIGHT BUTTOCK PRESSURE ULCER STAGE 1, 3X3CM, DRY SCALY SKIN INTACT WITH SURROUNDING PINK COLOR MERGED WITH LEFT BUTTOCK AND -SACRALCOCCYX BLANCHABLE REDNESS RECOMMENDATIONS: -APPLY COMPOSITE DRESSING TO SURGICAL SITES QD AND PRN TO PREVENT SCRATCHING -CLEANSE SKIN TEAR WITH NS. PAT DRY, APPLY VERSATEL DRESSING Q5D AND PRN IF SOILING -CLEANSE LEFT AND RIGHT BUTTOCK WITH SOAP AND WATER, PAT DRY, APPLY Z GUARD AND COVER WITH OPTIFOAM QD AND PRN WITH SOILING. -APPLY OPTIFOAM TO RIGHT AND LEFT HEEL Q5D AND PRN SOILING -HEEL RAISER TO RIGHT AND LEFT HEELS AT ALL TIMES -OFFLOAD RIGHT HEELS BY PLACING PILLOWS UNDER CALVES UNLESS OTHERWISE CONTRAINDICATED -PRESSURE REDISTRIBUTIONS SURFACE THERAPY -TURN AND REPOSITION Q2H, OFFLOAD BUTTOCKS -CONTINUE TO FOLLOW RD RECOMMENDATIONS ALL ABOVE RECOMMENDATIONS DISCUSSED WITH PRIMARY RN
--- NOTE | 2018-12-07 11:18 | NUR ---
DISCHARGE PLANNING Rcd call made to [facility] manager gas - Sissy to follow-up on placement for this pt. Sw left a voicemail and requested a call back with an update. Esmer Parry, ACSW Ext [phone]
--- NOTE | 2018-12-07 13:00 | NUR ---
WOUND DRESSING CLEAN, DRY AND INTACT. PROVIDED SKIN AND PERINEAL CARE.
--- NOTE | 2018-12-07 14:15 | NUR ---
PT IS REFUSING AND ARGUING "I DON'T WANT TO BE CHANGED RIGHT NOW, DON'T WORRY ABOUT IT." WILL REATTEMPT AT A LATER TIME.
[2018-12-07 16:00] VITALS: BP 92/53
--- NOTE | 2018-12-07 16:45 | NUR ---
REPORTED EPISODES OF LOW BLOOD PRESSURE TO DR. ORTEGA, NO NEW ORDERS RECEIVED.
[2018-12-07] MEDS ORDERED: LORazepam 2 MG/ML VIAL IM PRN (18:30)
--- NOTE | 2018-12-07 19:10 | NUR ---
RECEIVED REPORT FROM MARIO RN DAYSHIFT NURSE AT BEDSIDE FOR CONTINUITY OF CARE, PT IN STABLE CONDITION.
--- NOTE | 2018-12-07 19:10 | NUR ---
ENDORSED PT TO MEDICAL RECORDS SECRETARY NURSE. PT HAS NO SIGNS OF DISTRESS AT THIS TIME.
--- NOTE | 2018-12-07 20:00 | NUR ---
PT IN BED SHE IS ALERT AND IS AOX1. PT IS PLEASANT AT THIS TIME AND ALLOWED STAFF TO TAKE HER VITAL SIGNS. V/S FOLLOWS T 98.4 P 96 R 18 B/P 88/40 02 98% ON ROOM AIR. PT WAS PULLED UP IN BED AND REPOSITIONED. PT DOESN'T HAVE IV ACCESS, AND DOESN'T WANT AN IV SITE. PT DRESSINGS ARE DRY AND INTACT. ALL FALLS PRECAUTIONS IN PLACE AND CALL JASSO IN REACH.
--- NOTE | 2018-12-07 20:30 | NUR ---
MD MADE AWARE OF LOW PRESSURE, MD SUGGEST GETTING ANOTHER IV SITE BUT PT REFUSED.
--- NOTE | 2018-12-07 21:00 | NUR ---
PT IN BED AND TRYING TO GET OUT OF BED, BUT PT ABLE TO BE REDIRECTED AT THIS TIME. PT WAS TURNED, CHANGED AND REPOSITIONED. DRESSINGS DRY AND INTACT. SHE WAS UNWILLING TO ALLOW STAFF TO RE-TAKE BLOOD PRESSURE, BUT SHE . DID TAKE HER DUE SCHEDULED MEDICATION OF ZYPREXA AND A PRN OF MELATONIN TO HELP HER SLEEP. MEDICATION EDUCATION PROVIDED TO PT. PT DENIES ANY PAIN OR DISCOMFORT ALL FALLS PRECAUTIONS IN PLACE AND CALL JASSO IN REACH.
--- NOTE | 2018-12-07 21:10 | NUR ---
PT REFUSED HEPARIN AWARE.
[2018-12-07] MEDS: MELATONIN 3 MG TAB PO PRN (22:05)
--- NOTE | 2018-12-07 22:30 | NUR ---
PT TRYING TO GET OUT OF BED, SHE DENIES ANY PAIN OR DISCOMFORT, PT WAS ABLE TO BE REDIRECTED AND ASSISTED BACK IN BED. ALL FALLS PRECAUTIONS IN PLACE AND FREQUENT ROUNDS PROVIDED.
[2018-12-08] VITALS: BP 138/82
--- NOTE | 2018-12-08 01:00 | NUR ---
PT IN BED AWAKE AND ALERT SHE IS AOX2. PT WAS HEARD SPEAKING TO HERSELF SAYING HER LEG HURT, BUT WHEN ASKED IF SHE WOULD LIKE A PAIN MEDICATION, PT SAID NO I DON'T LIKE PILLS I DON'T LIKE HOW THEY MAKE ME FEEL I USED TO BE ADDICTED TO PAIN PILLS AND GOD RESCUED ME. PT ALSO OFFERED ATIVAN FOR AGITATION DUE TO PT RESTLESSNESS AND TRYING TO GET OUT OF BED, AND PT AGAIN SAID NO. PT WAS REPOSITIONED IN BED , BUT REFUSED TO BE CHANGED. WILL RETURN TO CHECK ON PT AND ASK AGAIN IF SHE WILL ALLOW STAFF TO CHANGE HER. PT DID ALLOW STAFF TO TAKE HER VITAL SIGNS T 98.4 P 112 R 18 B/P 138/82 02 98% ON ROOM AIR.
--- NOTE | 2018-12-08 01:58 | NUR ---
PT CONTINUES TO REFUSE TO BE TURNED, CLEANED AND CHANGED AT THIS TIME. PT CONTINUES TO SAY NO I DON'T WANT YOUR HELP!!
--- NOTE | 2018-12-08 07:10 | NUR ---
RECEIVED REPORT FROM NIGHT AT SHIFT NURSE MARTIN AT THIS TIME FOR CONTINUITY OF CARE. PT IN STABLE CONDITION. RESPIRATIONS EVEN AND UNLABORED, ROOM AIR. NO IV ACCESS, IS AWARE, ORDER IN. SAFETY MEASURES IN PLACE. CALL LIGHT AT BEDSIDE BED IN LOW POSITION. BED ALARM ON. WILL CONTINUE TO MONITOR.
[2018-12-08 08:00] VITALS: BP 112/55
[2018-12-08 08:14] LABS: BASOPHILS # (AUTO) 0.1 K/uL (0.00-0.22); BASOPHILS % (AUTO) 0.7 % (0.0-2.0); EOSINOPHILS # (AUTO) 0.1 K/uL (0-0.4); EOSINOPHILS % (AUTO) 1.2 % (0.0-4.0); HEMATOCRIT 28.9 % (36-48); HEMOGLOBIN 9.5 g/dL (12.0-16.0); MEAN CORPUSCULAR HEMOGLOBIN 29 pg (27-31); MEAN CORPUSCULAR HGB CONC 33 g/dL (33-37); MEAN CORPUSCULAR VOLUME 87.3 fL (80-94); MONOCYTES # (AUTO) 0.5 K/uL (0.8-1.0); MONOCYTES % (AUTO) 6.8 % (1.7-9.3); NEUTROPHILS # (AUTO) 6.4 K/uL (1.8-7.7); NEUTROPHILS % (AUTO) 79.3 % (42.2-75.2); PLATELET COUNT (AUTO) 486 K/uL (140-450); RED BLOOD CELL COUNT(AUTO) 3.31 MIL/uL (4.20-5.40); RED CELL DISTRIBUTION WIDTH 16.1 % (11.6-13.7)
[2018-12-08 08:33] LABS: MAGNESIUM 1.8 mg/dL (1.8-2.4); PHOSPHORUS 3.4 mg/dL (2.5-4.9)
[2018-12-08 08:44] LABS: ANION GAP 12.2 (8-16); CARBON DIOXIDE 24.7 mmol/L (21-32); CHLORIDE 107 mmol/L (98-107); CREATININE 0.6 mg/dL (0.6-1.3); GLUCOSE 116 mg/dL (74-106); POTASSIUM 3.9 mmol/L (3.5-5.1); SODIUM SERUM 140 mmol/L (136-145); UREA NITROGEN, BLOOD 11 mg/dL (7-18)
--- NOTE | 2018-12-08 09:00 | NUR ---
GAVE ORDERED DUE MEDICATIONS AT THIS TIME. PT TOLERATED WELL. GAVE SMALL BASIN WITH SOAP AND WATER TO SOAK FINGERS TO REMOVE DIRT PER PT REQUEST. BED IN LOW POSITION. CALL LIGHT AT BEDSIDE. BED ALARM ON. WILL CONTINUE TO MONITOR.
[2018-12-08] MEDS: LACTOBACILLUS RHAMNOSUS GG 1 EACH CAP PO SCH (09:03)
[2018-12-08] MEDS: OLANZapine 5 MG TAB PO SCH ×2 (09:04→20:37)
--- NOTE | 2018-12-08 09:33 | NUR ---
CONTACTED LURDES NAJERA CM AT [phone] REGARDING PATIENT'S PLACEMENT, NO ANSWER. LEFT MESSAGE. AWAITING FOR CALL BACK. CM WILL FOLLOW UP.
--- NOTE | 2018-12-08 11:11 | NUR ---
REPOSITIONED AND CHANGED AFTER URINATION. PT TOLERATED WELL. CALL LIGHT AT BEDSIDE BED IN LOW POSITION. BED ALARM ON. WILL CONTINUE TO MONITOR.
--- NOTE | 2018-12-08 12:19 | NUR ---
GAVE PHONE WITH EDUCATION FOR USE PER PT REQUEST AT THIS TIME. CALL LIGHT AT BEDSIDE BED IN LOW POSITION. BED ALARM ON. WILL CONTINUE TO MONITOR.
[2018-12-08] MEDS: Z-GUARD PASTE TP SCH (13:02)
--- NOTE | 2018-12-08 14:55 | NUR ---
PT LYING IN BED SLEEP AT THIS TIME. RESPIRATIONS EVEN AND UNLABORED, ROOM AIR. BED IN LOW POSITION. BED ALARM ON. CALL LIGHT AT BEDSIDE. WILL CONTINUE TO MONITOR.
[2018-12-08 16:00] VITALS: BP 109/62
--- NOTE | 2018-12-08 16:01 | NUR ---
PT LYING IN BED SLEEP AT THIS TIME. BED IN LOW POSITION. BED ALARM ON. CALL LIGHT AT BEDSIDE. WILL CONTINUE TO MONITOR.
--- NOTE | 2018-12-08 17:52 | NUR ---
PT EATING DINNER AT THIS TIME IN STABLE CONDITION. BED IN LOW POSITION. CALL LIGHT AT BEDSIDE. WILL CONTINUE TO MONITOR.
--- NOTE | 2018-12-08 19:23 | NUR ---
GAVE REPORT TO AMMONIA SOLUTION PREPARER NURSE MARTIN FOR CONTINUITY OF CARE. PT IN STABLE CONDITION.
--- NOTE | 2018-12-08 19:25 | NUR ---
RECEIVED REPORT FROM CHRIS RN DAYSHIFT NURSE AT BEDSIDE FOR CONTINUITY OF CARE, PT IN STABLE CONDITION.
--- NOTE | 2018-12-08 20:00 | NUR ---
PT ON WOUND BED, ALL FALLS PRECAUTIONS IN PLACE. PT IS AOX2 AND DENIES PAIN AT THIS TIME. PT DECLINES TO BE TURNED AND CHANGED, BUT DID ALLOW STAFF TO TAKE V/S WHICH ARE FOLLOWS T 97.4 P 110 R 18 B/P 109/48 02 95% ON ROOM AIR. ALL FALLS PRECAUTIONS IN PLACE.
--- NOTE | 2018-12-08 21:00 | NUR ---
PT REFUSES ORDERED ZYPREXA, MEDICATION EDUCATION PROVIDED, PT CONTINUES TO REFUSE SAYING I WANT TO FEEL ALL MY EMOTIONS THIS HAS NOTHING TO DO WITH A BROKEN HIP. PT ALSO DECLINED TO TAKE HEPARIN, MEDICATION EDUCATION PROVIDED TO PT, PT CONTINUED TO REFUSE. RESIDENT MD AWARE THAT PT REFUSES MEDICATION AND CARE. ALL FALLS PRECAUTION IN PLACE AND FREQUENT ROUNDS RENDERED.
--- NOTE | 2018-12-08 22:30 | NUR ---
PT HAD BM AND WAS TURNED, CHANGED AND REPOSITION. BED LOW AND ALL FALLS PRECAUTIONS IN PLACE.
[2018-12-09] VITALS: BP 109/48
--- NOTE | 2018-12-09 | NUR ---
PT ON WOUND BED AND IS ASLEEP. BUT AROUSABLE TO NAME AND LIGHT TOUCH .PT DECLINED TO BE TURNED AND CHANGED AT THIS TIME. V/S FOLLOWS T 97.1 P 105 R 18 B/P 127/51 02 95% ON ROOM AIR. ALL FALLS PRECAUTIONS IN PLACE.
[2018-12-09] MEDS: Z-GUARD PASTE TP SCH ×2 (01:00→13:46)
--- NOTE | 2018-12-09 02:33 | NUR ---
PT ASLEEP ON WOUND BED ALL FALLS PRECAUTIONS IN PLACE. PT DECLINED TO BE TURNED AND CHANGED.
--- NOTE | 2018-12-09 04:30 | NUR ---
PT TURNED, CHANGED AND REPOSITONED IN BED NO C/O VOICED ALL FALLS PRECAUTIONS IN PLACE.
--- NOTE | 2018-12-09 06:36 | NUR ---
PT IN BED WILL ENDORSE POC TO AM SHIFT
--- NOTE | 2018-12-09 07:20 | NUR ---
RECEIVED REPORT FROM SCHOOL COOK NURSE MARTIN FOR CONTINUITY OF CARE. PT IN STABLE CONDITION. RESPIRATIONS EVEN AND UNLABORED, ROOM AIR. SAFETY MEASURES IN PLACE. BED IN LOW POSITION. BED ALARM ON. CALL LIGHT AT BEDSIDE. WILL CONTINUE TO MONITOR.
[2018-12-09 08:00] VITALS: BP 98/61
--- NOTE | 2018-12-09 09:45 | NUR ---
CHANGED AND REPOSITIONED PT AT THIS TIME. PT IN STABLE CONDITION. RESPIRATIONS EVEN AND UNLABORED. SAFETY MEASURES IN PLACE. BED IN LOW POSITION. CALL LIGHT AT BEDSIDE. WILL CONTINUE TO MONITOR.
[2018-12-09] MEDS: OLANZapine 5 MG TAB PO SCH ×2 (10:26→20:27)
[2018-12-09] MEDS: LACTOBACILLUS RHAMNOSUS GG 1 EACH CAP PO SCH (10:26)
[2018-12-09] MEDS: CLINICAL MONITORING MC SCH (10:30)
--- NOTE | 2018-12-09 11:26 | NUR ---
PT LYING IN BED SLEEP AT THIS TIME. RESPIRATIONS EVEN AND UNLABORED, ROOM AIR. BED IN LOW POSITION. CALL LIGHT AT BEDSIDE. BED ALARM ON. WILL CONTINUE TO MONITOR.
--- NOTE | 2018-12-09 13:00 | NUR ---
PT REFUSED WOUND CARE AT THIS TIME.
--- NOTE | 2018-12-09 13:47 | NUR ---
PT LYING IN BED TALKING TO FRIEND AT BEDSIDE. RESPIRATIONS EVEN AND UNLABORED. BED IN LOW POSITION. BED ALARM ON. CALL LIGHT AT BEDSIDE. WILL CONTINUE TO MONITOR.
--- NOTE | 2018-12-09 15:45 | NUR ---
PT REFUSED WOUND CARE AT THIS TIME.
[2018-12-09 16:00] VITALS: BP 95/44
--- NOTE | 2018-12-09 16:13 | NUR ---
PT LYING IN BED WITH SHEET OVER HER HEAD MOVING RIGHT AND LEFT FEET UP AND DOWN AT THIS TIME. RESPIRATIONS EVEN AND UNLABORED, ROOM AIR. BED IN LOW POSITION. CALL LIGHT AT BEDSIDE. BED ALARM ON. WILL CONTINUE TO MONITOR.
--- NOTE | 2018-12-09 17:58 | NUR ---
PT EATING DINNER AT THIS TIME. BED IN LOW POSITION. BED ALARM ON. CALL LIGHT AT BEDSIDE. WILL CONTINUE TO MONITOR.
--- NOTE | 2018-12-09 19:12 | NUR ---
GAVE REPORT TO ELEMENT BURNER NURSE BETY FOR CONTINUITY OF CARE. PT IN STABLE CONDITION.
--- NOTE | 2018-12-09 19:13 | NUR ---
Received endorsement from AM shift RN; patient resting comfortably in bed. Introduced self, updated board. No SOB or distress noted, on room air. No IV site noted. Bed in the lowest position, call light within reach. Initial assessment done. Will continue to monitor.
--- NOTE | 2018-12-09 21:00 | NUR ---
Due meds given, tolerated well.
--- NOTE | 2018-12-09 23:40 | NUR ---
Vitals taken, no distress noted.
[2018-12-10] VITALS: BP 105/51
--- NOTE | 2018-12-10 00:39 | NUR ---
Asked patient if I can take pictures of her wounds; patient declined and stated "There's nothing wrong with my feet and you guys won't allow me to walk, so why should I let you take a pictures?".
[2018-12-10] MEDS: Z-GUARD PASTE TP SCH ×2 (00:59→13:10)
--- NOTE | 2018-12-10 01:33 | NUR ---
Rounds done; patient asleep, eyes closed, visible chest rise and fall noted.
--- NOTE | 2018-12-10 03:10 | NUR ---
Checks made; patient resting comfortably.
--- NOTE | 2018-12-10 04:45 | NUR ---
Patient wet; cleaned, chux and linens changed. Tolerated well.
--- NOTE | 2018-12-10 06:20 | NUR ---
Vitals stable, due meds given. Will endorse to AM shift RN for continuity of care.
--- NOTE | 2018-12-10 07:24 | NUR ---
RECEIVED ENDORSEMENT FROM WELDER SHIELDED METAL ARC NURSE. PATIENT IS AAOX2, AMERICAN SPEAKING. RESPIRATIONS ARE EVEN AND UNLABORED ON ROOM AIR. FLACC O. NO IV LINE NOTED. PLAN OF CARE WAS REVIEWED WITH PATIENT, PATIENT NEEDS REINFORCEMENT. SAFETY MEASURES IN PLACE, CALL LIGHT WITHIN REACH.
[2018-12-10 08:00] VITALS: BP 97/47
--- NOTE | 2018-12-10 08:48 | NUR ---
CONTACTED SONG CHATMAN AT [phone], SHE STATED THAT SHE IS STILL LOOKING FOR PLACEMENT. WILL FOLLOW UP.
[2018-12-10] MEDS: BENZTROPINE 1 MG TAB PO SCH (09:13)
[2018-12-10] MEDS: LACTOBACILLUS RHAMNOSUS GG 1 EACH CAP PO SCH (09:13)
[2018-12-10] MEDS: OLANZapine 5 MG TAB PO SCH ×2 (09:13→22:35)
[2018-12-10] MEDS: CLINICAL MONITORING MC SCH (09:14)
--- NOTE | 2018-12-10 09:14 | NUR ---
ADMINISTERED SCHEDULED MEDICATIONS. PATIENT TOLERATED WELL. NO OTHER NEEDS AT THIS TIME, WILL CONTINUE TO MONITOR.
--- NOTE | 2018-12-10 11:27 | NUR ---
PATIENT RESTING. NO DISTRESS NOTED. NO OTHER NEEDS AT THIS TIME, WILL CONTINUE TO MONITOR.
--- NOTE | 2018-12-10 13:33 | NUR ---
CONTACTED SONG CHATMAN AT [phone], NO ANSWER. LEFT MESSAGE. WILL FOLLOW UP
--- NOTE | 2018-12-10 13:38 | NUR ---
PATIENT SLEEPING, EASILY AROUSABLE. DENIES ANY PAIN AT THIS TIME. NO OTHER NEEDS AT THIS TIME, WILL CONTINUE TO MONITOR.
--- NOTE | 2018-12-10 15:04 | NUR ---
PATIENT LAYING QUIETLY IN BED. YARN CLEANER AT BEDSIDE ASSISTING PATIENT. FLACC 0. NO OTHER NEEDS AT THIS TIME, WILL CONTINUE TO MONITOR.
--- NOTE | 2018-12-10 15:54 | NUR ---
12/10/18 RD FOLLOW UP COMPLETED PLEASE REFER TO NUTRITION ASSESSMENT UNDER CARE ACTIVITY FOR ESTIMATED NUTRITIONAL NEEDS. 1. CONTINUE MECHANICAL SOFT NA2GM DIET WITH ENSURE BID TOLERATED 2. RECOMMENDED VITAMIN C 500 MG BID FOR MULTIPLE PRESSURE ULCERS 3. RD TO FOLLOW-UP 5-7 DAYS, LOW RISK ALLEN VILLEDA, RD
[2018-12-10 16:00] VITALS: BP 112/56
--- NOTE | 2018-12-10 16:19 | NUR ---
DISCHARGE PLANNING Spoke to LURDES Sheehan in regards to placement. Per Sissy, she Addendum: 12/10/18 at 1624 by Esmer Parry CM Sissy stated sent out referrals to all the tier 1 SNFs however no acceptance due to psych history. Sissy indicated she requested an additional list from her [employer] and is currently waiting for it. Sissy stated rehab will be short term, no more than 2 weeks, and patient should be able to return home. Social workers will assess patient's living situation. Esmer Parry, ACSW Ext [phone]
--- NOTE | 2018-12-10 16:40 | NUR ---
ASSISTED PATIENT TO BEDPAN. FLACC 0. NO OTHER NEEDS AT THIS TIME, WILL CONTINUE TO MONITOR.
--- NOTE | 2018-12-10 17:17 | NUR ---
PATIENT RESTING IN BED. FLACC 0. NO OTHER NEEDS AT THIS TIME, WILL CONTINUE TO MONITOR.
--- NOTE | 2018-12-10 19:22 | NUR ---
RECIEVED PT ,AAOX2 , ABLE TO FOLLOW COMMAND BUT SEEMS CONFUSED - DX WITH SCHIZOPHRENIA , NO C/O PAIN -FLACC O , NO IV ACCESS , ON SAFETY/FALL PRECAUTION PROTOCOL -BED ALARM ON , CALL LIGHT WITHIN REACH , PLAN OF CARE DISCUSSED BUT POOR UNDERSTANDING DUE TO MENTAL STATUS . NO SIGNS OF BLEEDING NOTED IN THE OPERATIVE SITES. NO TUNELLING OF THE WOUNDS NOTED. WILL CONT. TO MONITOR.
--- NOTE | 2018-12-10 19:22 | NUR ---
ENDORSED TO MONOTYPE KEYBOARD OPERATOR FOR CONTINUITY OF CARE. PATIENT IS STABLE AT THIS TIME.
--- NOTE | 2018-12-10 22:00 | NUR ---
MADE ROUNDS - NO SIGNS OF DISTRESS NOTED - BED ALARM ON.
[2018-12-11] VITALS: BP 110/60
--- NOTE | 2018-12-11 | NUR ---
MADE ROUNDS , NO SIGNS OF DISTRESS NOTED - BED ALARM ON.
[2018-12-11] MEDS: Z-GUARD PASTE TP SCH ×2 (01:00→13:45)
[2018-12-11] MEDS: MELATONIN 3 MG TAB PO PRN (05:30)
--- NOTE | 2018-12-11 05:30 | NUR ---
PT AWAKE WHOLE NIGHT . OFFER AGAIN MELATONIN -AGREED.
--- NOTE | 2018-12-11 07:45 | NUR ---
RECEIVED HAND OFF REPORT FROM PM RN PT APPEARS STABLE AND IN NO APPARENT DISTRESS. ALL SAFETY MEASURES ARE IN PLACE WILL CONTINUE TO MONITOR
--- NOTE | 2018-12-11 08:00 | NUR ---
SPOKE WITH DR. MERIDA ABOUT DOSAGE OF ZYPREXA PER PHARMACY NOTES IN [place]. SHE STATED SHE IS AWARE. WILL CONTINUE TO MONITOR PT FOR SIDE EFFECTS.
--- NOTE | 2018-12-11 08:15 | NUR ---
PT REFUSED VITAL SIGNS ASKED PT 2 DIFFERENT TIMES 30 MINUTES APART, PT STILL REFUSING. PT STATED THAT SHE WANTS HER VITALS TAKEN AROUND NOON. WILL ATTEMPT AT NOON
[2018-12-11] MEDS: BENZTROPINE 1 MG TAB PO SCH ×2 (08:54→20:23)
[2018-12-11] MEDS: OLANZapine 5 MG TAB PO SCH (08:54)
[2018-12-11] MEDS: LACTOBACILLUS RHAMNOSUS GG 1 EACH CAP PO SCH (08:54)
[2018-12-11] MEDS: CLINICAL MONITORING MC SCH (09:00)
--- NOTE | 2018-12-11 10:19 | NUR ---
UPDATED CLINICALS FAXED TO SONG CHATMAN AT [phone].
--- NOTE | 2018-12-11 11:32 | NUR ---
FREQUENT ROUNDING ON PT PT APPEARS STABLE AND IN NO APPARENT DISTRESS ALL SAFETY MEASURES ARE IN PLACE WILL CONTINUE TO MONITOR
--- NOTE | 2018-12-11 13:29 | NUR ---
PT ANXIOUS AND CONFUSED. PT TRYING TO GET OUT OF BED. PT APPEARS STABLE AND IN NO APPARENT DISTRESS.
--- NOTE | 2018-12-11 15:37 | NUR ---
FREQUENT ROUNDING ON PT PT APPEARS STABLE AND IN NO APPARENT DISTRESS. ALL SAFETY MEASURES ARE IN PLACE WILL CONTINUE TO MONITOR.
[2018-12-11] MEDS ORDERED: diphenhydrAMINE 50 MG/ML VIAL IM/IVP SCH (16:05)
--- NOTE | 2018-12-11 16:10 | NUR ---
CONTACTED LURDES ZULETA TO GET UPDATE ON PATIENT'S PLACEMENT, SHE STATED THAT SHE FAXED REFERRALS TO FACILITIES AND HAVE NOT GOTTEN ANY RESPONSE YET. WILL FOLLOW UP AGAIN TOMORROW.
--- NOTE | 2018-12-11 16:56 | NUR ---
[facility] TO [facility]ALUATE PATIENT FOR PLACEMENT PER KENA DUE TO HER DIAGNOSIS OF SCHIZOPHRENIA AND BEHAVIOR THEY ARE UNABLE TO ACCEPT THE PT.
[2018-12-11 16:59] VITALS: BP 108/59
--- NOTE | 2018-12-11 17:44 | NUR ---
FREQUENT ROUNDING ON PT PT APPEARS STABLE AND IN NO APPARENT DISTRESS. ALL SAFETY MEASURES ARE IN PLACE WILL CONTINUE TO MONITOR.
[2018-12-11] MEDS: ACETAMINOPHEN 325 MG TAB PO PRN (18:32)
--- NOTE | 2018-12-11 19:12 | NUR ---
ENDORSED PT TO PM RN PT AWAKE IN BED PT APPEARS STABLE
--- NOTE | 2018-12-11 19:15 | NUR ---
RECEIVED PT FROM DAY SHIFT NURSE PT AAOX1 COOPERATIVE TO FOLLOW COMMANDS S/P LEFT HIP ORIF, NOT SIGNS O;F PAIN NOTED, FALL RLISK KLPROTOCOL AND INITIAL ASSESSMENT DONE
[2018-12-11 20:00] VITALS: BP 121/70
[2018-12-11] MEDS: OLANZapine 5 MG ODT PO SCH (20:22)
[2018-12-11] MEDS: QUEtiapine FUMARATE 25 MG TAB PO SCH (20:23)
[2018-12-11] MEDS ORDERED: DIVALPROEX SPRINKLES 125 MG CAPDR PO SCH (21:00)
--- NOTE | 2018-12-11 21:00 | NUR ---
SPONGE BATH GIVEN LINENNCHANGED PT INCONTINENT EXCORIATION ON SACRUM HEALING ON PROGRESS.
--- NOTE | 2018-12-11 23:44 | NUR ---
PT REPOSITIONED Q2H NOT DISTRESS NOTED AFTER ALL MEDIC GIVEN PT IS SLEEPING QUIET
[2018-12-12] MEDS: Z-GUARD PASTE TP SCH ×2 (01:00→13:14)
--- NOTE | 2018-12-12 03:00 | NUR ---
PT HAS BEEN MONITORING CLOSE NOT DISTRESS NOTED PT SLEEPING WELL
--- NOTE | 2018-12-12 04:43 | NUR ---
SPONGE BATH GIVEN LINEN CHANGED PT INCONTINENT COOPERATIVE TO BE CLEANED REPOSITIONED Q2H
--- NOTE | 2018-12-12 06:49 | NUR ---
PT REMAIN QUIET AT THIS TIME COOPERATIVE TO FOLLOW COMMANDS, PT WILL BE ENDORSED TO DAY SHIFT NURSE FOR CONTINUE OF CARE
--- NOTE | 2018-12-12 07:30 | NUR ---
RECEIVED REPORT FROM STONECUTTER HAND NURSE. PATIENT LYING DOWN IN BED COMFORTABLY. NO DISTRESS NOTED. DENIES ANY PAIN. AAOX4, CALM, COOPERATIVE, SKIN COLOR APPROPRIATE TO ETHNICITY, WARM TO TOUCH. HAS SACRAL EXCORIATION D/T IAD. LEFT HIP S/P ORIF, DRESSING DRY AND INTACT. NO IV SITE NOTED. MD ALREADY AWARE. ABDOMEN SOFT, NON-DISTENDED. REVIEWED PLAN OF CARE WITH PATIENT. PATIENT VERBALIZED UNDERSTANDING. SAFETY MEASURES IN PLACE, CALL LIGHT WITHIN REACH. WILL CONTINUE TO MONITOR.
[2018-12-12 08:00] VITALS: BP 110/57
[2018-12-12] MEDS: QUEtiapine FUMARATE 25 MG TAB PO SCH ×2 (09:01→20:50)
[2018-12-12] MEDS: OLANZapine 5 MG ODT PO SCH ×2 (09:02→20:54)
[2018-12-12] MEDS: BENZTROPINE 1 MG TAB PO SCH ×3 (09:02→20:51)
[2018-12-12] MEDS: LACTOBACILLUS RHAMNOSUS GG 1 EACH CAP PO SCH (09:02)
--- NOTE | 2018-12-12 09:08 | NUR ---
PATIENT LYING DOWN IN BED. NO DISTRESS NOTED. DENIES ANY PAIN. SCHEDULED MEDICATIONS DUE GIVEN. WILL CONTINUE TO MONITOR.
--- NOTE | 2018-12-12 09:45 | NUR ---
PHYSICAL THERAPIST AT BEDSIDE WORKING WITH PATIENT. WILL CONTINUE TO MONITOR.
--- NOTE | 2018-12-12 10:11 | NUR ---
SPOKE WITH SONG CHATMAN FROM [facility] STATED SHE IS UNABLE TO FIND ANY SNF AND REQUESTING US TO LOOK FOR SNF PLACEMENT. LURDES TO FOLLOW UP
--- NOTE | 2018-12-12 11:00 | NUR ---
Director Of Direct Marketing Note: I faxed inquiry to [facility]. Per Jeri Chauhan from [facility] , they have a secured unit at their facility. She stated they will review inquiry and call me back. Addendum: 12/13/18 at 1006 by Esmer Brice SS Late entry for 12/12/18: Per Jeri Chauhan , they cannot accept patient due to not having Medi-richard coverage.
--- NOTE | 2018-12-12 11:40 | NUR ---
PATENT LYING DOWN IN BED SLEEPING, AROUSABLE BY VOICE. NO DISTRESS NOTED. DENIES ANY PAIN. CONDITION UNCHANGED. WILL CONTINUE TO MONITOR.
--- NOTE | 2018-12-12 14:00 | NUR ---
PATIENT LYING DOWN IN BED. CALM, COOPERATIVE. NO DISTRESS. WILL CONTINUE TO MONITOR.
[2018-12-12 14:09] LABS: ANION GAP 11.7 (8-16); CARBON DIOXIDE 25.7 mmol/L (21-32); CHLORIDE 104 mmol/L (98-107); POTASSIUM 4.4 mmol/L (3.5-5.1); SODIUM SERUM 137 mmol/L (136-145)
[2018-12-12 14:12] LABS: ASPARTATE AMINOTRANSFERASE 18 U/L (15-37); TOTAL BILIRUBIN 0.4 mg/dL (0.0-1.0)
[2018-12-12 14:34] LABS: ALBUMIN 2.1 g/dL (3.4-5.0); CREATININE 0.7 mg/dL (0.6-1.3); GLUCOSE 128 mg/dL (74-106); UREA NITROGEN, BLOOD 22 mg/dL (7-18)
--- NOTE | 2018-12-12 15:07 | NUR ---
Residential Real Estate Sales Manager Note: Per Joanne from [facility] , they are not able to accept patient due to non compliance and behavior.
--- NOTE | 2018-12-12 15:34 | NUR ---
LATE ENTRY: SPOKE TO LIZZY OF [facility] IF THEY HAVE A LOCKED UNIT. SHE STATED THAT SHE CAN REFER ME TO THEIR [facility], SPOKE TO DORIE. SHE PROVIDED ME OF THE FAX NUMBER [phone] TO SEND REFERRALS. REFERRAL SENT RECEIVED A CALL FROM DORIE (ADMISSIONS) FROM [facility], SHE STATED THAT DUE TO PATIENT'S HISTORY THEY CANNOT ACCEPT THE PATIENT.
[2018-12-12 16:00] VITALS: BP 96/50
--- NOTE | 2018-12-12 16:30 | NUR ---
PATIENT LYING DOWN IN BED PLAYING ON HER PHONE. NO DISTRESS NOTED. CONDITION UNCHANGED. WILL CONTINUE TO MONITOR.
--- NOTE | 2018-12-12 17:01 | NUR ---
FAXED THE INQUIRY TO [facility] , AND WILLING TO ACCEPT THE PATIENT IF THEY HAVE OSMEL . KEHINDE FROM [facility] SPOKE WITH SONG CHATMAN AT [facility] STATED SHE WILL DISCUSS WITH THE DIRECTOR AND WILL CALL HER BACK.
--- NOTE | 2018-12-12 19:10 | NUR ---
GAVE REPORT TO FOOD EQUIPMENT SERVICE TECHNICIAN NURSE FOR CONTINUITY OF CARE. PATIENT IN STABLE CONDITION.
--- NOTE | 2018-12-12 19:11 | NUR ---
RECEIVED REPORT FROM AM SHIFT NURSE. PATIENT SUPINE IN BED. NO DISTRESS NOTED. DENIES ANY PAIN. AAOX4, CALM, COOPERATIVE. W/ SACRAL EXCORIATION D/T IAD. W/ LEFT HIP S/P ORIF, DRESSING DRY AND INTACT. W/ LEFT NON-DISPLACED RADIAL FX, PT REFUSED TO WEAR SLING. NO IV SITE NOTED. MD ALREADY AWARE. ABDOMEN SOFT, NON-DISTENDED. REVIEWED PLAN OF CARE WITH PATIENT. PATIENT VERBALIZED UNDERSTANDING. SAFETY MEASURES IN PLACE, CALL LIGHT WITHIN REACH. WILL CONTINUE TO MONITOR. Addendum: 12/12/18 at 2212 by Rema Coreas RN SACRAL AND BUTTOCKS EXCORIATION DUE TO IAD
[2018-12-12 20:00] VITALS: BP 99/45
--- NOTE | 2018-12-12 20:51 | NUR ---
PT MEDICATED. EXPLAINED THE MEDS INDICATION, PT ACKNOWLEDGED.
--- NOTE | 2018-12-12 21:15 | NUR ---
ASKED TO BE REPOSITIONED; PLACED HER IN A COMFORTABLE POSITION GENTLY LEFT HIP S/P POST ORIF; AND PT MOVED HER ARM GENTLY W/ THE LEFT RADIAL FX.
--- NOTE | 2018-12-12 23:51 | NUR ---
PT ROUNDING DONE; PT SLEEPING AT THIS TIME. CALM AND NOT IN RESPIRATORY DISTRESS. NO BEHAVIORAL CHANGES AT THIS TIME NOTED.
[2018-12-13] MEDS: Z-GUARD PASTE TP SCH ×2 (01:12→13:00)
--- NOTE | 2018-12-13 02:00 | NUR ---
PT ASLEEP BUT EASILY AWAKENED BY VERBAL STIMULI, NO COMPLAINTS AT THIS TIME.
--- NOTE | 2018-12-13 03:30 | NUR ---
PT CLEANED 1 BM; 2 VOIDS; PLACED HYDRAGUARD; PT REFUSED TO BE PLACED OPSITE FOAM DRESSING ON THE BUTTOCKS
[2018-12-13 04:00] VITALS: BP 110/48
--- NOTE | 2018-12-13 06:00 | NUR ---
PT AWAKE, SUPINE , IN STABLE CONDITION AT THIS TIME
--- NOTE | 2018-12-13 07:10 | NUR ---
RECEIVED REPORT FROM MORTGAGE LOAN REVIEWER NURSE. PATIENT IS AWAKE AND IN BED. NO RESP DISTRESS, ON ROOM AIR. PATIENT HAS NO IV LINE. LAST BM 12/13. WILL CONTINUE CARE FOR THE DAY.
[2018-12-13] MEDS: OLANZapine 5 MG ODT PO SCH ×2 (08:40→21:03)
[2018-12-13] MEDS: LACTOBACILLUS RHAMNOSUS GG 1 EACH CAP PO SCH (08:41)
[2018-12-13] MEDS: QUEtiapine FUMARATE 25 MG TAB PO SCH ×2 (08:43→21:03)
[2018-12-13] MEDS: BENZTROPINE 1 MG TAB PO SCH ×2 (08:46→21:03)
--- NOTE | 2018-12-13 08:46 | NUR ---
ADMINISTERED MORNING MEDICATION. PATIENT TOLERATED WELL. PATIENT REFUSED MORNING HEPARIN INJECTION.
--- NOTE | 2018-12-13 11:00 | NUR ---
CONTACTED SONG CHATMAN TO GET AN UPDATE ON THE OSMEL WITH [facility]. SHE STATED SHE IS STILL WAITING FOR THE RESPONSE FROM HER DIRECTOR. WILL FOLLOW UP.
--- NOTE | 2018-12-13 11:10 | NUR ---
Postdoctoral Fellow Note: Javier Lewis from [facility] , they cannot accept patient due to behavior.
--- NOTE | 2018-12-13 12:30 | NUR ---
PATIENT IS SITTING UP IN BED EATING LUNCH. NO COMPLAINTS AT THIS TIME
--- NOTE | 2018-12-13 13:47 | NUR ---
CONTACTED SONG CHATMAN TO GET AN UPDATE FOR OSMEL FOR [facility], NO ANSWER. LEFT MESSAGE.
--- NOTE | 2018-12-13 14:00 | NUR ---
CHANGED PATIENTS BED SHEETS AND CHUX. REMOVED OLD DRESSING ON STAPLE/SUTURE SITES AND CLEANSED AND APPLIED NEW DRESSING.
[2018-12-13 16:00] VITALS: BP 95/49
--- NOTE | 2018-12-13 18:39 | NUR ---
PATIENT IS RESTING IN BED. WILL ENDORSE TO MEDICAL TECHNICIAN ASSISTANT FOR CONTINUITY OF CARE.
[2018-12-13] MEDS: MELATONIN 3 MG TAB PO PRN (21:10)
--- NOTE | 2018-12-13 21:20 | NUR ---
Due meds given, tolerated well.
--- NOTE | 2018-12-13 23:30 | NUR ---
Vitals taken, no distress noted.
[2018-12-14] VITALS: BP 94/58
[2018-12-14] MEDS: Z-GUARD PASTE TP SCH ×2 (00:25→13:41)
--- NOTE | 2018-12-14 01:10 | NUR ---
Checks made; patient asleep, eyes closed, visible chest rise and fall noted.
--- NOTE | 2018-12-14 03:55 | NUR ---
Patient noted with medium BM. Patient cleaned, chux and linens changed.
--- NOTE | 2018-12-14 06:00 | NUR ---
Vitals stable, due meds given. Will endorse to AM shift RN for continuity of care.
--- NOTE | 2018-12-14 07:25 | NUR ---
RECEIVED BEDSIDE REPORT FROM FRONT OFFICE ADMINISTRATOR NURSE VANESA; PT IS ASLEEP, NO S/S OF ACUTE DISTRESS NOTED. PT IS ON ROOM AIR, SKIN INTACT ASIDE FROM THE EXCORIATION ON HER SACRUM, AND L HIP ISELA S/O ORIF. NO IV SITE NOTED. FALL PRECAUTIONS IN PLACE, CALL LIGHT WITHIN REACH. WILL CONTINUE TO MONITOR.
[2018-12-14 08:00] VITALS: BP 100/51
--- NOTE | 2018-12-14 08:25 | NUR ---
ENDORSED PT TO PAUL FOR CONTINUITY OF CARE
--- NOTE | 2018-12-14 08:26 | NUR ---
RECEIVED REPORT FROM RAJAT LUJAN. PATIENT SITTING UP IN BED, PHYSICAL THERAPY WORKING WITH PATIENT. PATIENT SHOWS NO SIGNS OF DISTRESS ON RA, PATIENT HAS NO IV ACCESS. BED IS LOW AND CALL LIGHT IS IN REACH. PATIENT VITALS ARE STABLE. BP IS IN LOW NORMAL RANGE AT 97/48. INTRODUCED MYSELF TO PATIENT. PATIENT IN CALM COOPERATIVE MOOD. WILL CONTINUE TO MONITOR.
--- NOTE | 2018-12-14 09:09 | NUR ---
PER SONG CHATMAN, SHE IS STILL WAITING FOR THE DOCTOR FROM [facility] TO SIGN OFF [facility]. WILL FOLLOW UP.
--- NOTE | 2018-12-14 10:30 | NUR ---
PATIENT RESTING IN BED, IN RIGHT LATERAL POSITION. CALL LIGHT IN REACH. BED LOW,. ALL NEEDS MET AT THIS TIME.
--- NOTE | 2018-12-14 10:59 | NUR ---
CONTACTED SONG CHATMAN AT [phone] TO FOLLOW UP ON OSMEL. SHE STATED SHE IS STILL WAITING FOR HER DIRECTOR'S DECISION. SHE ALSO STATED SHE CANNOT ISSUE ANY OSMEL. WHEN ASKED IF HOW LONG SHOULD WE WAIT, SHE STATED SHE DOES NOT KNOW. SHE ALSO STATED THAT THEY HAVE PEOPLE WORKING ON THE WEEKEND.
[2018-12-14] MEDS: LACTOBACILLUS RHAMNOSUS GG 1 EACH CAP PO SCH (11:17)
[2018-12-14] MEDS: QUEtiapine FUMARATE 25 MG TAB PO SCH ×2 (11:17→23:09)
[2018-12-14] MEDS: BENZTROPINE 1 MG TAB PO SCH ×2 (11:18→23:09)
[2018-12-14] MEDS: OLANZapine 5 MG ODT PO SCH ×2 (11:19→23:21)
--- NOTE | 2018-12-14 11:21 | NUR ---
Research Manager Note: I faxed inquiry to [facility] and Yuridia Agudelo.
--- NOTE | 2018-12-14 11:25 | NUR ---
ADMINISTERED SCHEDULED MEDICATIONS. PATIENT TOLERATED WELL. HELD HEPARIN NO CURRENT PLATELET LEVELS AVAILABLE. WOUND CARE DONE WITH YOGESH WOUND CARE NURSE. NO SIGNS OF INFECTION. NO SIGNS OF DISTRESS ON RA. BED IS LOW, CALL LIGHT IN REACH.
--- NOTE | 2018-12-14 13:45 | NUR ---
PATIENT SLEEPING, NO DISTRESS NOTED ON RA, BED LOW, CALL LIGHT IN REACH. WILL CONTINUE TO MONITOR.
--- NOTE | 2018-12-14 14:06 | NUR ---
WOUND CARE RE-EVALUATION WITH PRIMARY RN DONE THIS MORNING, SACRALCOCCYX AND R/L BUTTOCKS SKIN INTACT, PINK COLOR WITH DRY SCALY SKIN, LEFT LOWER THIGH SKIN TEAR DRY AND CLEAN WITH VERSATEL DRESSING IN PLACE AREA DRY AND CLEAN, LEFT AND RIGHT HEELS DRY BLISTERS WITH SKIN INTACT, NO REDNESS NOTICE. RECOMMEND TO DISCONTINUE Z GUARD TO SACRALCOCCYX AND BUTTOCKS, APPLY OPTIFOAM Q3D AND PRN IF SOILING. CONTINUE TO KEEP LEFT HIP AND LEFT LATERAL THIGH ISELA IN PLACE DUE TO LOW ALBUMIN. POC DISCUSSED WITH PRIMARY RN
[2018-12-14] MEDS: FOAM DRESSING TP SCH (14:25)
--- NOTE | 2018-12-14 14:31 | NUR ---
Discharge note: DYLLAN contacted [facility] Agudelo and spoke to All Purpose Clerk Ibis . Per Y[facility]idia Baumann declines patient.
[2018-12-14] MEDS: HYDRAGUARD CREAM TP SCH (14:32)
[2018-12-14 16:00] VITALS: BP 104/52
--- NOTE | 2018-12-14 16:20 | NUR ---
PATIENT RESTING IN BED WATCHING TV, NO DISTRESS NOTED ON RA, NO C/O PAIN, BED LOW, CALL LIGHT IN REACH. WILL CONTINUE TO MONITOR.
--- NOTE | 2018-12-14 18:45 | NUR ---
REPOSITIONED PATIENT FOR COMFORT, NO DISTRESS NOTED ON RA, BED LOW, CALL LIGHT IN REACH. ALL NEEDS MET AT THIS TIME. WILL CONTINUE TO MONITOR.
--- NOTE | 2018-12-14 19:20 | NUR ---
GAVE BEDSIDE REPORT TO ADHESIVE SPRAYER RNARNULFO. ENDORSING PATIENT IN STABLE CONDITION.
--- NOTE | 2018-12-14 19:20 | NUR ---
RECIEVED PT AAOX1 TO 2 , POOR HISTORIAN , NID , NO IV ACCESS , WITH WOUND DRESSINGS DRY AND INTACT , WITH REDNESS ON BUTT - ON WOUND CARE BED , ON HEEL PROTECTORS,PLAN OF CARE DISCUSSED BUT POOR UNDERSTANDING DUE TO MENTAL STATUS - DX SCHIZOPHRENIA , ON SAFETY /FALL PRECAUTION PROTOCOL - BED ALARM ON , CALL LIGHT WITHIN REACH, WILL CONT. TO MONITOR.
--- NOTE | 2018-12-14 22:00 | NUR ---
MADE ROUNDS , NO SIGNS OF DISTRESS NOTED AT THIS TIME. -ON BED ALARM.WILL CONT. TO MONITOR.
[2018-12-14] MEDS ORDERED: OLANZapine 5 MG TAB ONE (23:04)
[2018-12-15] VITALS: BP 110/70
--- NOTE | 2018-12-15 | NUR ---
MADE ROUNDS , NO SIGNS OF DISTRESS NOTED AT THIS TIME , -ON BED ALARM . WILL CONT. TO MONITOR.
[2018-12-15] MEDS: HYDRAGUARD CREAM TP SCH ×2 (01:00→13:00)
--- NOTE | 2018-12-15 07:20 | NUR ---
RECEIVED BEDSIDE REPORT FROM MARKET RESEARCH ASSOCIATE RNARNULFO. PATIENT SLEEPING, NO SIGNS OF DISTRESS ON RA. BED IS LOW, CALL LIGHT IN REACH. WILL CONTINUE TO MONITOR.
[2018-12-15 08:00] VITALS: BP 96/45
--- NOTE | 2018-12-15 09:45 | NUR ---
PATIENT RESTING IN BED WATCHING TV. PATIENT IN LEFT LATERAL POSITION. NO SIGNS OF DISTRESS ON RA. BED IS LOW, CALL LIGHT IN REACH. WILL CONTINUE TO MONITOR.
[2018-12-15] MEDS: LACTOBACILLUS RHAMNOSUS GG 1 EACH CAP PO SCH (10:43)
[2018-12-15] MEDS: BENZTROPINE 1 MG TAB PO SCH ×2 (10:43→20:58)
[2018-12-15] MEDS: QUEtiapine FUMARATE 25 MG TAB PO SCH ×2 (10:43→20:59)
[2018-12-15] MEDS: OLANZapine 5 MG ODT PO SCH ×2 (10:44→21:00)
--- NOTE | 2018-12-15 10:45 | NUR ---
ADMINISTERED SCHEDULED MEDICATIONS. PATIENT TOLERATED WELL. ASSISTED PATIENT TO MAKE PHONE CALL. LEFT VOICE MESSAGE. NO SIGNS OF DISTRESS ON RA. BED IS LOW, CALL LIGHT IN REACH. WILL CONTINUE TO MONITOR.
--- NOTE | 2018-12-15 13:30 | NUR ---
PT RECEIVED FROM RAJAT MILLER. PT IN BED. AAOX4. BREATHING EVEN AND UNLABORED. NO SIGNS OF ACUTE DISTRESS. WILL CONTINUE TO ASSESS FOR CHANGES IN CONDITION.
[2018-12-15 13:41] LABS: BASOPHILS % (AUTO) 0.6 % (0.0-2.0); EOSINOPHILS % (AUTO) 0.1 % (0.0-4.0); HEMATOCRIT 27.3 % (36-48); LYMPHOCYTES # (AUTO) 1.2 K/uL (2.5-16.5); LYMPHOCYTES % (AUTO) 22.1 % (20.5-51.1); MEAN CORPUSCULAR HEMOGLOBIN 29 pg (27-31); MEAN CORPUSCULAR HGB CONC 33 g/dL (33-37); MEAN CORPUSCULAR VOLUME 86.3 fL (80-94); MONOCYTES # (AUTO) 0.4 K/uL (0.8-1.0); MONOCYTES % (AUTO) 6.4 % (1.7-9.3); NEUTROPHILS % (AUTO) 70.8 % (42.2-75.2); PLATELET COUNT (AUTO) 495 K/uL (140-450); RED BLOOD CELL COUNT(AUTO) 3.17 MIL/uL (4.20-5.40); RED CELL DISTRIBUTION WIDTH 16.1 % (11.6-13.7); WHITE BLOOD COUNT (AUTO) 5.6 K/uL (4.8-10.8)
--- NOTE | 2018-12-15 15:35 | NUR ---
RECEIVED PATIENT FROM RAJAT BRAXTON/ PATIENT RESTING IN BED. ASSISTED PATIENT WITH PHONE CALL. FRIEND ANSWERED. PATIENT SPOKE TO FRIEND FOR A FEW MINUTES. NO SIGNS OF DISTRESS ON RA. BED IS LOW, CALL LIGHT IN REACH. WILL CONTINUE TO MONITOR.
[2018-12-15 16:00] VITALS: BP 104/52
--- NOTE | 2018-12-15 17:45 | NUR ---
ASSISTED PATIENT WITH REPOSITIONING. PATIENT WATCHING TV. NO DISTRESS NOTED. WILL CONTINUE TO MONITOR.
--- NOTE | 2018-12-15 19:15 | NUR ---
GAVE BEDSIDE REPORT TO MANAGER OF MEDICAL RNARNULFO. ENDORSING PATIENT IN STABLE CONDITION.
--- NOTE | 2018-12-15 19:30 | NUR ---
RECIEVED PT. AAOX1 TO 2, POOR HISTORIAN DUE TO MENTAL STATUS , NID , COMFORTABLY RESTING ON BED , NO ACTIVE BLEEDING ON SURGICAL SITE , WITH REDNESS ON BUTT - ON WOUND BED - INCONTINENT . ON SAFETY /FALL PRECAUTION PROTOCOL - BED ALARM ON - CALL JONNY RUIZ , WILL CONT. TO MONITOR.
[2018-12-15] MEDS: MELATONIN 3 MG TAB PO PRN (21:00)
--- NOTE | 2018-12-15 22:00 | NUR ---
MADE ROUNDS , NO SIGNS OF DISTRESS NOTED AT THIS TIME , CALL LIGHT WITHIN REACH
[2018-12-16] VITALS: BP 110/60
--- NOTE | 2018-12-16 | NUR ---
MADE ROUNDS , NO SIGNS OF DISTRESS NOTED , CALL LIGHT WITHIN REACH.
[2018-12-16] MEDS: HYDRAGUARD CREAM TP SCH ×2 (01:00→13:02)
--- NOTE | 2018-12-16 04:00 | NUR ---
MADE ROUNDS , NO SIGNS OF DISTRESS NOTED AT THIS TIME, CALL LIGHT WITHIN REACH.
--- NOTE | 2018-12-16 07:14 | NUR ---
ENDORSED TO AM SHIFT FOR CONT. OF CARE WITH STABLE CONDITION
--- NOTE | 2018-12-16 07:25 | NUR ---
RECEIVED REPORT FROM WALLPAPER CONSULTANT NURSE. PT IS AAOX3 TO PERSON, PLACE AND TIME, WILL NEED REMINDERS AND REORIENTATION TO ROOM AND EQUIPMENT. PT HAS NO C/O PAIN AT THIS TIME. EXPLAINED TO PT TO NOTIFY NURSE/STAFF WHEN IN NEED OF ASSISTANCE, PT IS AWARE AND VERBALIZED UNDERSTAND. RESPIRATIONS EVEN AND UNLABORED ON RA. NO IV IN PLACE. ACTIVE BS, SOFT ABD. PT HAS PRESSURE ULCERS ON BILATERAL HEELS AND BUTTOCKS, SURGICAL WOUND ON LT HIP D/T S/P ORIF, AND LEFT LEG SKIN TEAR; DRESSING CLEAN, DRY AND INTACT. PT IS ON FALL RISK PRECAUTIONS, SAFETY MEASURES IN PLACE, CALL LIGHT WITHIN REACH. REVIEWED POC WITH PT, PT VERBALIZED UNDERSTANDING.
[2018-12-16 08:00] VITALS: BP 109/54
[2018-12-16] MEDS: LACTOBACILLUS RHAMNOSUS GG 1 EACH CAP PO SCH (09:45)
[2018-12-16] MEDS: BENZTROPINE 1 MG TAB PO SCH ×2 (09:45→20:06)
[2018-12-16] MEDS: QUEtiapine FUMARATE 25 MG TAB PO SCH ×2 (09:46→20:07)
[2018-12-16] MEDS: OLANZapine 5 MG ODT PO SCH ×2 (09:46→20:06)
--- NOTE | 2018-12-16 10:36 | NUR ---
PER DR. GOINS AND DR. ISBELL, OK TO GIVE HEPARAIN SC TODAY BASED ON YESTERDAY'S 12/15 PLATELET OF 495.
--- NOTE | 2018-12-16 11:59 | NUR ---
12/16/18 RD FOLLOW UP COMPLETED PLEASE REFER TO NUTRITION ASSESSMENT UNDER CARE ACTIVITY FOR ESTIMATED NUTRITIONAL NEEDS. 1. CONTINUE MECHANICAL SOFT/2 GM NA DIET TOLERATED WITH ENSURE ENLIVE BID 2. VIT C BID FOR WOUND HEALING SUPPORT 3. RD TO FOLLOW-UP 5-7 DAYS, LOW RISK TRAE FIERRO, RD
--- NOTE | 2018-12-16 12:30 | NUR ---
PT GIVEN SKIN AND NICKY CARE, WOUND DRESSING CHANGED AND PICTURES TAKEN. PT HAS NO C/O PAIN AT THIS TIME.
--- NOTE | 2018-12-16 15:05 | NUR ---
PT ON RT LATERAL SIDE, RESTING IN BED. NO SIGNS OF DISTRESS AT THIS TIME.
[2018-12-16 16:00] VITALS: BP 120/52
--- NOTE | 2018-12-16 18:15 | NUR ---
PT GIVEN NICKY CARE, OPTIFOAM TO SACRAL WOUND CHANGED.
[2018-12-16] MEDS ORDERED: LORazepam 2 MG/ML VIAL ONE (18:48)
--- NOTE | 2018-12-16 18:53 | NUR ---
PT TRYING TO GET OUT OF BED, ARGUMENTATIVE AND NON-COOPERATIVE WITH STAFF STATING "I NEED TO GO OUT OF THE HOSPITAL AND PRAY." ATIVAN GIVEN PER ORDER BY CHARGE NURSE NICO.
[2018-12-16] MEDS ORDERED: LORazepam 2 MG/ML VIAL IM/IVP SCH (19:00)
--- NOTE | 2018-12-16 19:18 | NUR ---
ENDORSED PT TO EXPERIENCE DESIGN DIRECTOR NURSE. PT LYING SUPINE IN BED AT THIS TIME WITH NO SIGNS OF DISTRESS.
--- NOTE | 2018-12-16 19:19 | NUR ---
RECEIVED BEDSIDE REPORT FROM DAY RN. PT IS AAO X2. ON ROOM AIR RESPIRATIONS ARE EQUAL AND UNLABORED. NO IV DOCTOR IS AWARE. S/P L ORIF DRESSING ARE C/D/I. PT WITH SACRAL ULCER DRESSING IS C/D/I. PT WITH ULCER GRACIA HEEL HEALING ARE RETAIL BUSINESS DEVELOPMENT MANAGER. POC DISCUSSED WITH PT. CALL LIGHT IS WITHIN REACH. SAFETY MEASURES ARE IN PLACE. WILL ROUND FREQUENTLY.
--- NOTE | 2018-12-16 20:07 | NUR ---
CHINO MEDICATIONS GIVEN. PT REFUSED HEPARIN. EXPLAINED REASON AND S/E OF REFUSING PT STILL REFUSED MED. WILL CONTINUE TO MONITOR.
[2018-12-16] MEDS: MELATONIN 3 MG TAB PO PRN (20:49)
--- NOTE | 2018-12-16 20:58 | NUR ---
PATIENT ATTEMPTING TO GET OUT OF BED. REORIENTED PT TO ROOM AND STAFF. ATTEMPTED TO CALM PT AND GAVE MELATONIN. SAFETY MEASURES ARE IN PLACE. WILL CONTINUE TO MONITOR.
--- NOTE | 2018-12-16 22:10 | NUR ---
PT IS AWAKE CURRENTLY LAYING COMFORTABLY IN BED. CALL LIGHT IS WITHIN REACH. WILL CONTINUE TO MONITOR.
--- NOTE | 2018-12-16 22:29 | NUR ---
GAVE REPORT TO OLGA. PT IN STABLE CONDITION.
[2018-12-17 00:55] VITALS: BP 124/66
--- NOTE | 2018-12-17 00:57 | NUR ---
SLEEPING AT THIS TIME. DENIES ANY PAIN. WITH CONFUSION AT TIMES WHEN AWAKE. ABLE TO FOLLOW SIMPLE COMMANDS. TOTAL CARE. NEEDS WILL BE ANTICIPATED AND WILL BE MET.
[2018-12-17] MEDS: HYDRAGUARD CREAM TP SCH ×2 (01:07→13:28)
--- NOTE | 2018-12-17 04:40 | NUR ---
AM PERSONAL HYGIENE RENDERED BY CNAS. NEEDS ANTICIPATED AND MET. TURNED TO SIDES Q 2H. FALL PRECAUTION OBSERVED.
--- NOTE | 2018-12-17 06:24 | NUR ---
PT. AWAKE AT THIS TIME AND TRYING TO GET OUT OF BED. BED ALARM ON. CLOSED MONITORING RT FALL RISK. WITH CONFUSION. ORIENTED TO SURROUNDINGS AND FAMILY LAW SPECIALIST PRN. WILL ENDORSE TO THE NEXT RN FOR CONTINUITY OF CARE.
--- NOTE | 2018-12-17 07:05 | NUR ---
RECEIVED REPORT FROM INFORMATICS SPEC RN. PATIENT IS TRYING TO CLIMB OUT OF BED. PATIENT IS AGITATED. NO SIGNS OF DISTRESS ON RA. BED LOW. CALL LIGHT IN REACH. PATIENT HAS SITTER IN PLACE.
[2018-12-17 08:00] VITALS: BP 111/65
--- NOTE | 2018-12-17 08:32 | NUR ---
CONTACTED SONG CHATMAN AT [phone] REGARDING OSMEL, NO ANSWER. LEFT MESSAGE. Addendum: 12/17/18 at 1042 by Caroline Valentine CM NUMBER IS [phone]
[2018-12-17] MEDS: LACTOBACILLUS RHAMNOSUS GG 1 EACH CAP PO SCH (08:52)
[2018-12-17] MEDS: FOAM DRESSING TP SCH (09:00)
[2018-12-17] MEDS: QUEtiapine FUMARATE 25 MG TAB PO SCH ×2 (09:34→21:13)
[2018-12-17] MEDS: OLANZapine 5 MG ODT PO SCH ×2 (09:34→21:20)
[2018-12-17] MEDS: BENZTROPINE 1 MG TAB PO SCH ×2 (09:34→21:12)
--- NOTE | 2018-12-17 09:35 | NUR ---
ADMINISTERED SCHEDULED MEDICATIONS. PATIENT TOLERATED WELL. PATIENT SITTING UP IN CHAIR WITH PT. PATIENT IS CALM AND COOPERATIVE AT THIS TIME.
--- NOTE | 2018-12-17 11:01 | NUR ---
DR. VIERA CONTACTED SONG CHATMAN TO FOLLOW UP PLACEMENT. PER SONG, [facility] IS NOT ABLE TO ACCEPT THE PATIENT ON MEDICARE RATE. CONTACTED KEHINDE OF [facility], SHE STATED THAT PER SONG, SHE DOES NOT KNOW IF THEIR DOC WILL DO AN OSMEL. KEHINDE STATED THAT THEY CANNOT ACCEPT THE PATIENT WITH SONG STATING THAT THEY ARE WILLING TO PAY MEDICARE RATE, THEY WANT IT IN WRITING. WILL FOLLOW UP.
--- NOTE | 2018-12-17 11:45 | NUR ---
PATIENT IS SLEEPING, NO DISTRESS NOTED ON RA, BED LOW, CALL LIGHT IN REACH. WILL CONTINUE TO MONITOR.
--- NOTE | 2018-12-17 13:04 | NUR ---
DISCHARGE PLANNING 13:04 - d call to medical insurance claims specialist, Sissy, to f/u on delay for letter of agreement. Sw left a voicemail requesting a call back. Esmer Parry, ACSW Ext [phone]
--- NOTE | 2018-12-17 13:30 | NUR ---
ADMINISTERED SCHEDULED MEDIATIONS. LYDIAN TOLERATED WELL. NO DISTRESS ON RA. CALL LIGHT IN REACH. PATIENT WATCHING TV.
[2018-12-17 16:00] VITALS: BP 91/48
--- NOTE | 2018-12-17 16:10 | NUR ---
PATIENT RESTING, WATCHING TV. NO DISTRESS NOTED ON RA. BED LOW, CALL LIGHT IN REACH.
--- NOTE | 2018-12-17 18:05 | NUR ---
PATIENT EATING DINNER. CALM AND COOPERATIVE. NO DISTRESS NOTED.
--- NOTE | 2018-12-17 19:10 | NUR ---
GAVE REPORT TO SECURITY REPRESENTATIVE RNTRACEY, PATIENT IN STABLE CONDITION.
--- NOTE | 2018-12-17 19:12 | NUR ---
RECEIVED BEDSIDE REPORT FROM AM SHIFT NURSE. PT IS AAO X2. PT CALM RIGHT NOW. ON ROOM AIR RESPIRATIONS ARE EQUAL AND UNLABORED. NO IV, DR. AWARE. S/P L ORIF, LEFT HIP DRESSING ARE CLEAN DRY INTACT. PT WITH SACRAL ULCER DRESSING NOT IN PLACE, WILL PLACE ONE DURING TURNING. WITH ULCER BILATERAL HEEL HEALING AND OPEN TO AIR. POC DISCUSSED . CALL LIGHT IS WITHIN REACH. SAFETY MEASURES ARE IN PLACE. WILL MONITOR PATIENT.
--- NOTE | 2018-12-17 19:30 | NUR ---
PT CLEANED AND PLACED OPSITE ON BUTTOCKS/ SACRAL; TURNED PT ON ONE SIDE.
[2018-12-17 20:00] VITALS: BP 94/50
[2018-12-17] MEDS: MELATONIN 3 MG TAB PO PRN (21:35)
--- NOTE | 2018-12-17 21:36 | NUR ---
PT GIVEN MELATOMNON C/O OF SLEEPNESSNESS
--- NOTE | 2018-12-17 23:50 | NUR ---
PT SLEEPING AT THIS TIME; TURNED AGAIN PLACED BED BACK TO SEMI [place]LERS POSITION FROM [place]. WILL CONTINUE TO MONITOR LOW BP
--- NOTE | 2018-12-18 | NUR ---
APPPLIED HYDRAUARD TO BILATERAL HEELS; OPSITE PLACED; HEEL RAISERS PLACED; PT KICKS OF THE HEEL RAISERS
[2018-12-18] MEDS: HYDRAGUARD CREAM TP SCH ×2 (02:12→13:56)
--- NOTE | 2018-12-18 02:24 | NUR ---
PT TURNED TO ONE SIDE; WILL CONTINUE TO MONITOR
[2018-12-18 04:00] VITALS: BP 100/56
--- NOTE | 2018-12-18 04:15 | NUR ---
PT TURNED TO SIDE Q 2; PT TOLERATED PROCEDURE; CHECKED ON THE DRESSING ON THE BUTTOCKS; CHANGED DRESSING AND APPLIED Z GUARD Addendum: 12/18/18 at 0539 by Rema Coreas RN CLEANED W/ NORMAL SALINE, SOAP AND PAT DRY. APPLIED DRESSINGS STATED ABOVE
--- NOTE | 2018-12-18 05:37 | NUR ---
AGAIN TURNED PT FOR THE LAST TIME ; CHECKED ON DRESSING ON THE LEFT HIP; CHANGED APPLIED VERSATEL AND COMPOSITE DRESSING
--- NOTE | 2018-12-18 05:56 | NUR ---
PT ASLEEP, PT CALM, NO COMPLAINTS AT THIS TIME, EASILY AROUSED BY TACTILE STIMULI,. PT IN STABLE CONDITION AT THIS TIME. WILL ENDORSE TO NEXT SHIFT.
[2018-12-18 07:08] LABS: ANION GAP 11.4 (8-16); CARBON DIOXIDE 25.4 mmol/L (21-32); CHLORIDE 105 mmol/L (98-107); CREATININE 0.6 mg/dL (0.6-1.3); GLUCOSE 88 mg/dL (74-106); POTASSIUM 3.8 mmol/L (3.5-5.1); SODIUM SERUM 138 mmol/L (136-145); UREA NITROGEN, BLOOD 23 mg/dL (7-18)
[2018-12-18 07:14] LABS: PHOSPHORUS 4.4 mg/dL (2.5-4.9)
[2018-12-18 07:28] LABS: BASOPHILS # (AUTO) 0.1 K/uL (0.00-0.22); BASOPHILS % (AUTO) 1.1 % (0.0-2.0); EOSINOPHILS % (AUTO) 0.5 % (0.0-4.0); HEMATOCRIT 28.9 % (36-48); HEMOGLOBIN 9.5 g/dL (12.0-16.0); LYMPHOCYTES # (AUTO) 1.7 K/uL (2.5-16.5); LYMPHOCYTES % (AUTO) 31.4 % (20.5-51.1); MEAN CORPUSCULAR HEMOGLOBIN 29 pg (27-31); MEAN CORPUSCULAR HGB CONC 33 g/dL (33-37); MEAN CORPUSCULAR VOLUME 86.7 fL (80-94); MONOCYTES # (AUTO) 0.5 K/uL (0.8-1.0); MONOCYTES % (AUTO) 9.2 % (1.7-9.3); NEUTROPHILS # (AUTO) 3.1 K/uL (1.8-7.7); NEUTROPHILS % (AUTO) 57.8 % (42.2-75.2); PLATELET COUNT (AUTO) 467 K/uL (140-450); RED BLOOD CELL COUNT(AUTO) 3.34 MIL/uL (4.20-5.40); RED CELL DISTRIBUTION WIDTH 16.5 % (11.6-13.7); WHITE BLOOD COUNT (AUTO) 5.4 K/uL (4.8-10.8)
--- NOTE | 2018-12-18 07:30 | NUR ---
Report recieved from night nurse. Pt asleep, easily arousable a/o x 3 able to communicate needs. Pt denies pain, sob or suicidal ideation. Reinforced safety education, Pt requires reinforcement. No s/s of acute distress noted. Call light and personal items within easy reach. Will continue to monitor.
[2018-12-18 08:00] VITALS: BP 98/52
[2018-12-18] MEDS: BENZTROPINE 1 MG TAB PO SCH ×2 (09:00→20:53)
[2018-12-18] MEDS: QUEtiapine FUMARATE 25 MG TAB PO SCH ×2 (09:01→20:54)
[2018-12-18] MEDS: LACTOBACILLUS RHAMNOSUS GG 1 EACH CAP PO SCH (09:01)
[2018-12-18] MEDS: OLANZapine 5 MG ODT PO SCH ×2 (09:02→20:56)
--- NOTE | 2018-12-18 09:30 | NUR ---
Pt resting at this time. Assisted to re-position for comfort, tsering care provided, tolerated well. Pt denies pain, no s/s of acute distress noted. Call light and personal items within easy reach. Will continue to monitor.
--- NOTE | 2018-12-18 11:17 | NUR ---
CONTACTED [facility] AT [phone] REGARDING REFERRAL. PROVIDED ME WITH FAX NUMBER [phone]. REFERRAL FAXED TO THE PROVIDED NUMBER.
--- NOTE | 2018-12-18 11:30 | NUR ---
Pt a/o able to communicate needs. CONVEYOR LOADER at bedside performing Am care, and repositioning. Pt denies pain; no s/s of acute distress noted. Call light and personal items within easy reach. Will continue to monitor.
--- NOTE | 2018-12-18 13:30 | NUR ---
RICHARD CLANCY AND SARINA ANDERSEN OF [facility] CAME TO EVALUATE PATIENT. SHE STATED THAT THEY ARE ABLE TO TAKE THE PATIENT PENDING AUTHORIZATION FROM THE INSURANCE.
--- NOTE | 2018-12-18 14:30 | NUR ---
Pt resting at this time, appears comfortable. Pt denies pain or discomfort. No s/s of acute distress noted, call light and personal items within easy reach. Will continue to monitor.
--- NOTE | 2018-12-18 14:48 | NUR ---
CONTACTED SONG CHATMAN AT [phone] REGARDING AUTHORIZATION. SHE STATED SHE IS IN THE PROCESS OF FINDING IF [facility] IS CONTRACTED WITH THEM, I SO SHE WILL PROCESS THE AUTH.
[2018-12-18 16:00] VITALS: BP 95/50
--- NOTE | 2018-12-18 16:02 | NUR ---
RECEIVED A CALL FROM [facility], SHE STATED THAT SHE WAS ABLE TO GET A HOLD OF SONG CHATMAN. SHE ALSO STATED THAT SHE TOLD SONG CHATMAN THAT THEY ARE CONTRACTED AND CAN PROVIDE HER WITH THE HARD COPY OF THE CONTRACT. SONG STATED THAT SHE WILL FIND OUT WITH THEIR HAM FACER AND WILL GET BACK TO HER.
--- NOTE | 2018-12-18 17:30 | NUR ---
Pt a/o able to communicate needs, repositioned for comfort, tolerated well. Pt denies pain or discomfort. No s/s of acute distress noted, call light and personal items within easy reach. Will continue to monitor.
--- NOTE | 2018-12-18 19:27 | NUR ---
Pt resting at this time, appears comfortable, No s/s of acute distress noted, call light and personal items within easy reach. Report endorsed to oncoming shift.
--- NOTE | 2018-12-18 19:35 | NUR ---
RECEIVED REPORT FROM AM RN IN BED SLEEPING. BED ALARM ON. NO RESTLESSNESS AT THIS TIME. TOTAL CARE RT WITH CONFUSION AT TIMES AND WITH GENERALIZED WEAKNESS. ABLE TO VERBALIZE SIMPLE NEEDS. NEEDS WILL BE ANTICIPATED AND WILL BE MET. DX. OF HYPERNATREMIA AND CHANGE OF LOC. PT. PRESENTLY WITH NO IVF SITE AND MD AWARE OF IT .
--- NOTE | 2018-12-18 21:00 | NUR ---
PT. AWAKE AT THIS TIME AND TOOK ALL P.O. MEDICATIONS WELL. TOLERATED WELL. NO COMPLAINTS DONE. PT. CALM AND ABLE TO VERBALIZE NEEDS WELL. ASKED IF SHE WAS HUNGRY. "NO, NOT AT THIS MOMENT". ENCOURAGED TO LET US KNOW IN CASE SHE IS HUNGRY. OK" PT. NOTED TO BE MORE CALM, ORIENTED TO EDUCATION FINANCE PROCESSOR AND PLACE AND ABLE TO VERBALIZE SIMPLE NEEDS WELL IN [place]ARO[place].
--- NOTE | 2018-12-18 23:00 | NUR ---
PT. BEEN SLEEPING WELL. WAKES UP EASILY WHEN TOUCHED. ABLE TO ANSWER SIMPLE QUESTION . TURNED TO SIDES WITH PILLOW SUPPORT . HEEL PROTECTORS TO HEELS BILATERALLY. BED ALARM ON.
[2018-12-19 00:29] VITALS: BP 90/50
[2018-12-19] MEDS: HYDRAGUARD CREAM TP SCH ×2 (00:45→13:27)
--- NOTE | 2018-12-19 01:41 | NUR ---
SLEEPING WELL . NO RESTLESSNESS.
--- NOTE | 2018-12-19 07:09 | NUR ---
ENDORSED TO THE NEXT RN FOR CONTINUITY OF CARE. SLEPT WELL THIS SHIFT. ABLE TO VERBALIZE SIMPLE NEEDS AND ABLE TO FOLLOW SIMPLE REQUESTS. PT. NOTED A/O X 2. ORIENTED PRN.
--- NOTE | 2018-12-19 07:15 | NUR ---
RECEIVED PT FROM BUSINESS DEVELOPMENT CONSULTANT NURSEOLGA, PT IS AWAKE AND LYING ON THE BED, NO IV ACCESS IN PLACE, SIDE RAILS UP AND CALL LIGHT WITHIN REACH, SAFETY AND FALL ,PRECAUTION ENFORCED, BED ALARM ACTIVATED, BILATERAL HEEL PROTECTORS IN PLACE, PT DENIES PAIN, COOPERATIVE AND RESPONDS APPROPRIATELY. WILL MONITOR PT.
[2018-12-19 08:05] VITALS: BP 104/51
[2018-12-19] MEDS: BENZTROPINE 1 MG TAB PO SCH (08:37)
[2018-12-19] MEDS: LACTOBACILLUS RHAMNOSUS GG 1 EACH CAP PO SCH (08:39)
[2018-12-19] MEDS: QUEtiapine FUMARATE 25 MG TAB PO SCH (08:40)
[2018-12-19] MEDS: OLANZapine 5 MG ODT PO SCH (08:40)
--- NOTE | 2018-12-19 09:15 | NUR ---
CONTACTED SONG CHATMAN AT [phone], SHE STATED THAT SHE SUBMITTED THE REQUEST TO HER AGILE SCRUM COACH AND IT'S OUT OF HER HANDS NOW. I ASKED HER IF [facility] IS CONTRACTED WITH THEM, SHE STATED THAT SHE ASKED THAT QUESTION WELL AND SHE IS STILL WAITING FOR ANSWERS. WILL FOLLOW UP.
--- NOTE | 2018-12-19 12:53 | NUR ---
Discharge plan: DYLLAN contacted patient's sister Aster Blankenship [phone] to discuss patient's discharge plan. DYLLAN informed Aster that a SNF was found by [facility] as long as the patient has a discharge plan from the SNF. Aster stated that she is willing to accept patient into her home until a board and care is found. DYLLAN offered assistance in finding a room and board for patient after she discharges from her SNF. DYLLAN/LURDES will follow up. REGINA Pitt ext. [phone] Addendum: 12/19/18 at 1321 by Esmer Parry CM Sw met with pt at the bedside. Pt was alert and oriented, mood and affect calmed and cooperative. Sw discussed with pt placement at SNF and dc plan. Pt stated she's not able to return to her previous living arrangement. Dyllan discussed with pt placement at room & board facility and pt is agreeable for Sw to find a place for her. Pt aware the king range is between $700-800/month and is comfortable paying that amount. Dyllan called [facility] room and board, spoke to junior systems administrator Arpan at who is able to accept the pt post SNF. Night Custodian aware he will need to pick and shovel man patient from facility and take her to the bank so pt can withdraw money to pay the rent. Night Custodian aware the SNF and/or insurance agent may call to verify this information. [facility] is located at [address] [place] [address]. Esmer parry [facility], Ext [phone]
--- NOTE | 2018-12-19 15:00 | NUR ---
ISELA ON THE SURGICAL SITE WAS REMOVED NOW AND SITE WAS REINFORCED WITH VERSATEL DRESSING.
--- NOTE | 2018-12-19 15:05 | NUR ---
SONG FROM THE PT'S INSURANCE COMPANY CALLED AND SAID THAT PT IS GOING TO [facility], TEL. [phone],PT WILL GO IN [id number], AND WILL CALL FOR THE TRANSPORTATION, DR. SORIANO WAS INFORMED.
--- NOTE | 2018-12-19 15:15 | NUR ---
MRSA SWAB DONE TO PT BY CHARGE NURSE, WILBERT, SAMPLE WAS SENT TO LAB.
--- NOTE | 2018-12-19 15:20 | NUR ---
SKIN ASSESSMENT WAS DONE TO PT AND MEDICATIONS WERE APPLIED IN THE SACRAL AREA AND BILATERAL HEELS. PICTURE WAS TAKEN AND ATTACHED TO CHART.
[2018-12-19] MEDS ORDERED: Hydraguard TP (15:53)
[2018-12-19] MEDS ORDERED: QUET25TA46 PO (15:53)
[2018-12-19] MEDS ORDERED: ZGUARD TP (15:53)
[2018-12-19] MEDS ORDERED: OLAN5ODT9 PO (15:53)
[2018-12-19] MEDS ORDERED: Foam Dressing TP ×2 (15:53)
[2018-12-19] MEDS ORDERED: HEPA500056 SUBQ (15:53)
[2018-12-19] MEDS ORDERED: DOCU-299 PO (15:53)
[2018-12-19] MEDS ORDERED: COG1 PO (15:53)
[2018-12-19] MEDS ORDERED: MELA3TAB56 PO (15:53)
[2018-12-19 16:00] VITALS: BP 108/53
--- NOTE | 2018-12-19 16:50 | NUR ---
CALLED [facility] AT [phone], AND GAVE REPORT TO RN, NANCY, PT WILL BE GOING TO [address] AND WILL BE TRANSPORTED BY [facility] AND SUPERVISOR LEAF [facility] REPAIR WILL BE AT 1700.
--- NOTE | 2018-12-19 17:40 | NUR ---
DISCHARGED PT TO [facility]IA [facility] ACCOMPANIED BY [facility] TRANSPORT, TEACHINGS AND INSTRUCTIONS WERE GIVEN AND PT VERBALIZED UNDERSTANDING, ARM BANDS REMOVED, AND PT TIS STABLE AT THIS TIME.
== END 2018-12-19 17:30 | DRG 853 ==
LOC: MED 12:59 → MTU 17:07
PROVIDERS: ADMIT General Practice; ATTEND General Practice
PROC: 0QS734Z Reposition Left Upper Femur with Internal Fixation Device, Percutaneous Approach (ICD-10-PCS; principal; 2018-11-30 09:30)
DX: A41.9 Sepsis, unspecified organism (principal); S72.142A Displaced intertrochanteric fracture of left femur, initial encounter for closed fracture; N17.0 Acute kidney failure with tubular necrosis; I50.43 Acute on chronic combined systolic (congestive) and diastolic (congestive) heart failure; E43 Unspecified severe protein-calorie malnutrition; G93.41 Metabolic encephalopathy; S72.002A Fracture of unspecified part of neck of left femur, initial encounter for closed fracture; E87.0 Hyperosmolality and hypernatremia; F20.0 Paranoid schizophrenia; M84.652A Pathological fracture in other disease, left femur, initial encounter for fracture; I43 Cardiomyopathy in diseases classified elsewhere; R65.10 Systemic inflammatory response syndrome (SIRS) of non-infectious origin without acute organ dysfunction; L89.322 Pressure ulcer of left buttock, stage 2; G93.89 Other specified disorders of brain; E87.8 Other disorders of electrolyte and fluid balance, not elsewhere classified; F29 Unspecified psychosis not due to a substance or known physiological condition; D72.829 Elevated white blood cell count, unspecified; M89.8X9 Other specified disorders of bone, unspecified site; W13.4XXA Fall from, out of or through window, initial encounter; E86.0 Dehydration; S91.209A Unspecified open wound of unspecified toe(s) with damage to nail, initial encounter; E87.6 Hypokalemia; I11.0 Hypertensive heart disease with heart failure; E83.42 Hypomagnesemia; K72.90 Hepatic failure, unspecified without coma; S52.122A Displaced fracture of head of left radius, initial encounter for closed fracture; M25.40 Effusion, unspecified joint; Z68.25 Body mass index [BMI] 25.0-25.9, adult; Z79.899 Other long term (current) drug therapy; Y93.89 Activity, other specified; Y92.89 Other specified places as the place of occurrence of the external cause; Y99.8 Other external cause status
CPT/HCPCS: 36415; 51702; 70450; 71045; 71101; 72170; 73080; 73502; 73610; 73630; 80048; 80053; 80305; 81001; 82140; 82150; 82550; 82553; 82948; 83605; 83690; 83735; 83880; 84100; 84439; 84443; 84484; 85025; 85610; 85730; 86886; 86900; 86901; 87040; 87081; 87086; 87186; 93005; 96365; 96372; 97110; 97116; 97161-GP; 97530; 99285; C1713; C1763; G0482; J1200; J1630; J1644; J2001; J2060; J2270; J2543; J2704; J3010; J3370; J3475; J3480; J3490; J7030; J7042; J7060; Q0092